=== PATIENT | male | born 2000 | race Caucasian/White ===

== ENCOUNTER 2019-01-22 21:49 | Emergency (ER) | payer MEDICAID, SELFPAY ==
[2019-01-22 21:50] VITALS: BP 159/93; PULSE 81; RESP 18; TEMP 36.8; O2SAT 100; BMI 40.2
--- NOTE | 2019-01-22 22:05 | EKG12_ITS ---
Test Reason : FALL Blood Pressure : / mmHG Vent. Rate : 075 BPM Atrial Rate : 075 BPM P-R Int : 118 ms QRS Dur : 110 ms QT Int : 370 ms P-R-T Axes : 007 -08 019 degrees QTc Int : 413 ms Normal sinus rhythm Normal ECG Confirmed by BHAVANA YANEZ, YASHIRA ([id number]), commissioning editor CASSANDRA WILKINSON ([id number]) on 01/24/2019 9:31:05 AM Referred By: DC Confirmed By:YASHIRA BATEMAN MD
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
--- NOTE | 2019-01-22 22:09 | ED.RN ---
NO OLD EKGS IN MUSE
[2019-01-22 22:25] LABS: Absolute Lymphocyte Count 3.18 X10^3/uL (0.83-4.51); Absolute Neutrophil Count 4.8 X10^3/uL (2.0-7.7); Basophil# 0.04 X10^3/uL; Basophil% 0.4 % (0-1); Eosinophil# 0.14 X10^3/uL; Eosinophils% 1.5 % (0-5); Hematocrit 43.6 % (40-54); Hemoglobin 14.2 g/dL (13.0-16.5); Lymphocyte # 3.18 X10^3/ul (4.0); Lymphocyte % 34.9 % (19-41); Mean Corp Hgb Conc 32.6 g/dL (32-36); Mean Corpuscular Hgb 27.6 pg (27.0-32.0); Mean Corpuscular Volume 84.8 fL (80-94); Mean Platelet Vol. 10.1 fl (6.2-12.0); Monocyte# 0.98 X10^3/uL; Monocyte% 10.7 % (0-10); NRBC Flagged by Analyzer 0 % (0-5); Neutrophil # 4.75 X10^3/uL (2.7-7.7); Neutrophil % 52.2 % (47-70); Platelet Count 254 K/mm3 (150-450); RBC Distribution Width CV 12.9 % (11.6-14.6); RBC Distribution Width SD 40.3 fl (35.1-43.9); Red Blood Count 5.14 M/mm3 (4.6-6.2); White Blood Count 9.1 K/mm3 (4.4-11.0)
[2019-01-22 22:45] LABS: Anion Gap 8 (5-15); BUN 17 mg/dL (7-18); BUN/Creat Ratio 21.6 RATIO (10-20); Calcium,Total 8.5 mg/dL (8.5-10.1); Chloride 108 mmol/L (98-107); Creatinine, Serum 0.79 mg/dL (0.70-1.30); EST Glomerular Filtration Rate 134 mL/min (>60); Est Glom Filt Rate - Afr Amer 162 mL/min (>60); Estimated Creatinine Clearance 145.51 ml/min; Glucose 92 mg/dL (74-106); Potassium 3.6 mmol/L (3.5-5.1); Sodium Level 141 mmol/L (136-145)
[2019-01-22 23:01] VITALS: BP 127/70; PULSE 76; RESP 15; O2SAT 98
[2019-01-22 23:09] VITALS: BP 121/58; PULSE 83; RESP 15; O2SAT 99
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
--- NOTE | 2019-01-22 23:19 | ED.DEP ---
ED Disposition - Plan for ED Patient: Instructions: FALL, Mechanical Referrals: Sarai Benedict [NON-STAFF] -
== END 2019-01-22 23:38 | disposition home or self-care (01) ==
PROVIDERS: Emergency Provider Emergency Medicine
DX: S06.0X1A Concussion with loss of consciousness of 30 minutes or less, initial encounter (principal); V18.4XXA Pedal cycle driver injured in noncollision transport accident in traffic accident, initial encounter; Y93.55 Activity, bike riding; Y92.9 Unspecified place or not applicable; Y99.9 Unspecified external cause status; R07.89 Other chest pain; R51 Headache; Z79.899 Other long term (current) drug therapy; Z87.891 Personal history of nicotine dependence
CPT/HCPCS: 70450; 71045; 80048; 84484; 85025; 93005; 99284; A4216

== ENCOUNTER 2019-11-21 16:32 | Emergency (ER) | payer MEDICAID, SELFPAY ==
[2019-11-21 16:33] VITALS: BP 138/79; PULSE 79; RESP 15; TEMP 37.1; O2SAT 98; BMI 41.2
--- NOTE | 2019-11-21 17:06 | ED.DEP ---
ED Disposition - Plan for ED Patient: Instructions: ED Otitis Externa Prescriptions: Ciprofloxacin HCl/Dexameth [Ciprodex Otic Suspension] 1 drop OTIC BID.TCU #1 bottle Referrals: Brandan Curiel MD [STAFF PHYSICIAN] -
--- NOTE | 2019-11-21 17:12 | ED.VISSUMM ---
- ER Visit Summary Date of Service: 11/21/19 Chief Complaint: Bilateral ear pain History of Present Illness: The patient is a 19 M presenting with bilateral ear pain. Patient states this started 2 weeks ago. He states he was initially on amoxicillin. This did not improve and was then given Augmentin. He was seen at urgent care 2 times. Today they told him he needs to come to the ED because he still feels bilateral ear pain. He denies fever. Denies rhinorrhea or sore throat. Denies cough. Denies other complaints. Physical Examination: Vitals are stable. Patient is afebrile. Alert no acute distress. HEENT exam pain with movement of tragus, no mastoid tenderness bilaterally. TM normal bilaterally. Neck is supple. No meningismus Lungs are clear and equal bilaterally. Heart is regular rate and rhythm. Abdomen is soft nontender nondistended. Extremities are unremarkable. Skin is warm and dry. Remainder of exam is unremarkable. Emergency Department Course and Treatment: Patient was given Cipro otic drops. Advised to follow-up with ENT. Advised return to ED for worsening complaints. Disposition: Discharge home Impression: Otitis externa This note was generated with [employer] dictation software. It may contain incorrect words, spelling, and punctuation that were not noted in review of the chart prior to signing ED Disposition - Plan for ED Patient: Instructions: ED Otitis Externa Prescriptions: Ciprofloxacin HCl/Dexameth [Ciprodex Otic Suspension] 1 drp OTIC (EAR) BID.TCU #1 bottle Prescription Printed Referrals: Brandan Curiel MD [STAFF PHYSICIAN] -
== END 2019-11-21 17:25 | disposition home or self-care (01) ==
LOC: ED 17:22
PROVIDERS: Emergency Provider Emergency Medicine
DX: H60.93 Unspecified otitis externa, bilateral (principal)
CPT/HCPCS: 99282

== ENCOUNTER 2021-04-12 13:36 | Emergency (ER) | payer MEDICAID, SELFPAY ==
[2021-04-12 13:37] VITALS: BP 159/92; PULSE 101; RESP 16; TEMP 36.4; O2SAT 98; BMI 38.4
--- NOTE | 2021-04-12 14:21 | ED.RN ---
PARENT IS REQUESTING TO TAKE THE PT HOME AND BRING HIM BACK IN THE EVENT HE STARTS ACTING FUNNY. PT IS RUNNING AROUND THE ROOM LAUGHING AND PLAYING. NO OBVIOUS DISTRESS IS NOTED.
--- NOTE | 2021-04-12 14:24 | EDS_ITS ---
HPI History of Present Illness Chief Complaint: Bite Informant: patient and family Narrative Narrative: 21-year-old male states that he took a toy away from the dog and the dog bit him. The vp global of the dog is with him. He believes that he got bit on the right side of his face and may have gone intraoral. Unknown [facility] Medical History ADHD Home Medications Atomoxetine Hcl [Strattera] 80 mg PO DAILY 02/22/13 [History Last Taken 02/22/13 0630] Cetirizine Hcl [Zyrtec] 10 mg PO DAILY #14 tablet 10/05/15 [Rx Last Taken Unknown] amoxicillin-pot clavulanate 875 mg PO Q12H #14 tablet 04/12/21 [Rx Last Taken Unknown] Allergy/AdvReac Type Severity Reaction Status Date / Time No Known Allergies Allergy Verified 04/12/21 13:37 Social History (Updated 04/12/21 @ 14:[address] Ervin Dominguez DO) Smoking Status: Never smoker substance use type: does not use ROS ROS ED Constitutional Constitutional ED: Denies chills, fever(s) or weight loss Eyes Eyes: Denies change in vision or diplopia ENT ENT ED: Denies ear pain, rhinorrhea or sore throat Cardiovascular Cardiovascular: Denies chest pain, orthopnea, palpitations or racing heartbeat Respiratory/Chest Respiratory/Chest: Denies cough, dyspnea or orthopnea Gastrointestinal Gastrointestinal: Denies abdominal pain, diarrhea, nausea or vomiting Genitourinary Genitourinary ED: Denies dysuria, hematuria or urinary frequency Musculoskeletal Musculoskeletal: Denies arthralgias or myalgias Integumentary Reports other Details: See HPI ; Denies abscess or rash Neurologic Neurologic: Denies headache(s) or weakness Psychiatric Psychiatric: Denies anxiety, depression, suicidal ideation or suicidal thoughts Endocrine Endocrinology: Denies polydipsia, polyphagia or polyuria Allergic/Immunologic Allergic/Immunologic ED: Denies mouth swelling, tongue swelling or urticaria EXAM Physical Exam Const Vital Signs: 04/12/21 13:37 Temperature 97.6 F L Temperature Source Temporal Pulse Rate 101 H Respiratory Rate 16 Blood Pressure 159/92 H Blood Pressure Mean 114 Pulse Ox 98 Oxygen Delivery Method Room Air Positive well nourished, well developed and obese General Appearance ED: well developed Nutritional Appearance: obese HEENT Reports normocephalic, head/scalp atraumatic, TM's clear and moist mucous membranes HEENT Narrative: There are multiple superficial abrasions to the right philtrum/maxillary face. Wound edges well approximated and they are not gaping. I see no extension to the intraoral area. trauma Tympanic Membrane ED: Yes TM's clear Eyes PERRL and EOMs intact bilaterally Neck no lymphadenopathy, supple and no JVD Resp normal respiratory effort and clear to auscultation bilaterally Cardio regular rate, regular rhythm and no murmurs GI normal to inspection, nondistended, normoactive bowel sounds and non-tender Palpation: soft Back/Spine no CVA tenderness and normal ROM Extremity normal to inspection General Extremety ED: Negative for edema General Extremity: Negative for edema Neuro oriented x3 and CN's II-XII intact bilaterally Sensorium / Orientation: alert Motor Exam: strength 5/5 throughout Psych mental status grossly normal Mood & Affect: Negative for depressed or tearful Skin no rashes or lesions noted and no wounds MDM MDM MDM Narrative Medical decision making narrative: Wound will be cleansed and dressed. Tetanus will be updated. To be started on Augmentin. Return if worsening or concerns Discharge Plan Triage Chief Complaint: Bite ED Provider: Ervin Dominguez Dx/Rx/DC Orders Clinical Impression: Dog bite of face Instructions: ED Dog Bite Prescriptions: New amoxicillin-pot clavulanate [amoxicillin-pot clavulanate] 875 MG tablet 875 mg PO Q12H Qty: 14 RF: 0 No Action Atomoxetine Hcl [Strattera] 80 MG capsule 80 mg PO DAILY RF: 0 Cetirizine Hcl [Zyrtec] 10 MG tablet 10 mg PO DAILY Qty: 14 RF: 0 Primary Care Provider: Care Physician,No Primary Referrals: Liban Franco MD [STAFF PHYSICIAN] - As Needed (for primary care) Care Physician,No Primary [Primary Care Provider] - Disposition Disposition: Home, Self Care
[2021-04-12] MEDS: Diphth,Pertuss(Acell),Tet Vac 0.5 ML Vial IM (14:47)
[2021-04-12] MEDS: Amox/Clavulanate 875 MG Tablet PO (14:48)
== END 2021-04-12 15:07 | disposition home or self-care (01) ==
PROVIDERS: Emergency Provider Emergency Medicine
DX: S00.87XA Other superficial bite of other part of head, initial encounter (principal); Z23 Encounter for immunization; W54.0XXA Bitten by dog, initial encounter; Y93.9 Activity, unspecified; Y92.9 Unspecified place or not applicable; Y99.9 Unspecified external cause status; F90.9 Attention-deficit hyperactivity disorder, unspecified type; E66.9 Obesity, unspecified; Z79.899 Other long term (current) drug therapy
CPT/HCPCS: 90471; 90715; 99283

== ENCOUNTER 2022-01-24 17:45 | Emergency (ER) | payer MEDICARE, MEDICAID, SELFPAY ==
[2022-01-24 17:47] VITALS: BP 153/98; PULSE 93; RESP 16; TEMP 36.8; O2SAT 97; BMI 46.7
[2022-01-24 18:31] LABS: Bacteria 0 SEEN /hpf (None Seen); Mucous, Urine 0 SEEN /hpf (<or=2+); Squamous Epithelial Cells - UA 0 SEEN /hpf (0-5)
[2022-01-24 18:40] LABS: Color, Urine Yellow (Yellow); Glucose, Dipstick Normal (Normal); Ketone-Dipstick Negative (Negative); Leukocyte Esterase-Dipstick 500 /ul (Negative); Nitrite-Dipstick Negative (Negative); Occult Blood-Urine 50 /ul (Negative); Protein-Dipstick 30 mg/dl (Negative); Urine Bilirubin Dipstick Negative (Negative); Urine Clarity Sl. Cloudy (Clear); Urine Urobilinogen Normal (Normal)
--- NOTE | 2022-01-24 19:02 | EDS_ITS ---
HPI History of Present Illness Chief Complaint: Complaint Informant: patient Pain Onset: Yesterday Narrative Narrative: Recurrent hematuria and dysuria yesterday. No abdominal or back pain. No fevers. No vomiting. Denies any anticoagulation medicines. States a year ago had blood in his urine saw his PCP was told to hydrate. Never got referred to. He states from then 2 weeks later had recurrent episode that went away yesterday first time it came back. Has not been sexually active for a year. He has no history of STD however would like it checked. Prior similar symptoms: Yes PFSH PFSH Medical History ADHD Home Medications Atomoxetine Hcl [Strattera] 80 mg PO DAILY 02/22/13 [History Last Taken 02/22/13 0630] Cetirizine Hcl [Zyrtec] 10 mg PO DAILY ##14 10/05/15 [Rx Last Taken Unknown] amoxicillin 875 mg-potassium clavulanate 125 mg tablet 875 mg PO Q12H #14 TABLETS 04/12/21 [Rx Last Taken Unknown] docusate sodium 100 mg capsule (DOK) 100 mg PO DAILY #14 caps 01/24/22 [Rx Last Taken Unknown] Allergy/AdvReac Type Severity Reaction Status Date / Time pollen extracts Allergy Other Verified 01/24/22 17:46 Social History Smoking Status: Never smoker substance use type: does not use ROS ROS ED Constitutional Constitutional ED: Denies chills, fever(s) or sweats Eyes Eyes: Denies change in vision ENT ENT ED: Denies dysphagia or sore throat Cardiovascular Cardiovascular: Denies chest pain, leg edema, palpitations or racing heartbeat Respiratory/Chest Respiratory/Chest: Denies cough, dyspnea or dyspnea on exertion Gastrointestinal Gastrointestinal: Denies abdominal pain, diarrhea, nausea or vomiting Genitourinary Genitourinary ED: Reports dysuria and hematuria; Denies urinary frequency Musculoskeletal Musculoskeletal: Denies back pain, extremity pain or neck pain Integumentary Denies rash or wounds Neurologic Neurologic: Denies headache(s), paresthesias or weakness EXAM Physical Exam Const Vital Signs: 01/24/22 17:47 Temperature 98.2 F Temperature Source Temporal Pulse Rate 93 Respiratory Rate 16 Blood Pressure 153/98 H Blood Pressure Mean 116 Pulse Ox 97 Oxygen Delivery Method Room Air Positive well nourished and well developed General Appearance ED: well developed and NAD HEENT Reports moist mucous membranes normocephalic and atraumatic Eyes PERRL, EOMs intact bilaterally and conjunctivae normal General Eye ED: Yes normal appearance of both eyes Neck no lymphadenopathy and supple General: Negative for tenderness Chest Wall Chest: Negative for tenderness Resp normal respiratory effort and normal air movement Effort and Inspection: symmetric chest movement; Negative for respiratory distress Cardio regular rate, regular rhythm and no murmurs Peripheral Pulses: pulses 2+ throughout GI normal to inspection, nondistended, normoactive bowel sounds and non-tender Palpation: Negative for guarding or rebound tenderness present Back/Spine no CVA tenderness and no thoracic nor lumbar tenderness Extremity normal to inspection General Extremety ED: Negative for edema or tenderness General Extremity: Negative for edema Neuro oriented x3 and no sensory deficits noted Sensorium / Orientation: awake and alert Skin no rashes or lesions noted and no wounds MDM MDM Lab Data Labs: Laboratory Results - last 24 hr 01/24/22 01/24/22 18:20 18:20 Urine Color Yellow Urine Clarity Sl. Cloudy Urine pH 6.0 Ur Specific [place] 1.020 Urine Protein 30 H Urine Glucose (UA) Normal Urine Ketones Negative Urine Occult Blood 50 H Urine Nitrite Negative Urine Bilirubin Negative Urine Urobilinogen Normal Ur Leukocyte Esterase 500 H Urine RBC 5-10 SEEN Urine WBC 25-50 SEEN Ur Squamous Epith Cells 0 SEEN Urine Bacteria 0 SEEN Urine Mucus 0 SEEN Chlam trachomat DNA PCR POSITIVE H N.gonorrhoeae DNA (PCR) Negative Discharge Plan Triage Chief Complaint: Complaint ED Provider: Eric Salmon Dx/Rx/DC Orders Clinical Impression: Acute UTI, Hematuria, Urethritis Instructions: ED Hematuria, ED Urinary Tract Infections in Men Prescriptions: New docusate sodium [DOK] 100 mg capsule 100 mg PO DAILY Qty: 14 0RF No Action Atomoxetine Hcl [Strattera] 80 MG capsule 80 mg PO DAILY Cetirizine Hcl [Zyrtec] 10 MG tablet 10 mg PO DAILY Qty: 14 0RF amoxicillin-pot clavulanate [amoxicillin-pot clavulanate] 875 MG tablet 875 mg PO Q12H Qty: 14 0RF Primary Care Provider: Kerwin Zuluaga Referrals: Kerwin Zuluaga MD [Primary Care Provider] - Ajit Mo MD [Med Staff - Active Staff] - 1 Week Disposition Disposition: Home, Self Care Discharge Date/Time: 01/24/22 19:39
[2022-01-24 19:21] LABS: Red Blood Cells-Urine 5-10 SEEN /hpf (0-5); White Blood Cells 25-50 SEEN /hpf (0-5)
[2022-01-24] MEDS: Cephalexin 250 MG Capsule 500 MG PO (19:38)
[2022-01-24 20:21] LABS: Neisserai gonorrhoeae by PCR Negative (Negative); Probe Check PASS
[2022-01-24 20:24] LABS: Chlamydia Trachomatis by PCR POSITIVE (Negative)
--- NOTE | 2022-01-24 20:30 | ED.RN ---
SPOKE WITH PATIENT AND MADE AWARE OF TEST RESULTS. PATIENT TO HAVE MEDICATION CALLED IN TO [facility]. PATIENT AWARE TO PAINT DIPPER MEDICATION
== END 2022-01-24 19:39 | disposition home or self-care (01) ==
PROVIDERS: Emergency Provider Emergency Medicine; PCP Family Medicine; Visit Provider Emergency Medicine
DX: A74.9 Chlamydial infection, unspecified (principal); R31.9 Hematuria, unspecified; N34.2 Other urethritis
CPT/HCPCS: 81001; 87086; 87491; 87591; 99283

== ENCOUNTER 2022-02-08 10:02 | Emergency (ER) | payer MEDICARE, MEDICAID, SELFPAY ==
[2022-02-08 10:03] VITALS: BP 163/100; PULSE 83; RESP 18; TEMP 36.8; O2SAT 100; BMI 50.9
[2022-02-08 10:05] VITALS: BP 163/100; PULSE 83; RESP 18; TEMP 36.8; O2SAT 100
--- NOTE | 2022-02-08 10:14 | EX.ED.GUMALE ---
HPI History of Present Illness Chief Complaint: Complaint Detail of Chief Complaint: Dysuria Informant: patient Narrative Narrative: Patient presents the emergency department complaint of dysuria. Patient states that he was seen for same about a week ago and diagnosed with a urinary tract infection and treated with antibiotics. Patient also was tested for gonorrhea and chlamydia and he thought they were negative. Patient has not been sexually active for a year. He denies any abnormal discharge from his penis. He denies fevers. Denies abdominal pain. Denies back pain. Prior similar symptoms: Yes PFSH PFSH Medical History ADHD Home Medications Atomoxetine Hcl [Strattera] 80 mg PO DAILY 02/22/13 [History Last Taken 02/22/13 0630] Cetirizine Hcl [Zyrtec] 10 mg PO DAILY ##14 10/05/15 [Rx Last Taken Unknown] amoxicillin 875 mg-potassium clavulanate 125 mg tablet 875 mg PO Q12H #14 TABLETS 04/12/21 [Rx Last Taken Unknown] docusate sodium 100 mg capsule (DOK) 100 mg PO DAILY #14 caps 01/24/22 [Rx Last Taken Unknown] doxycycline monohydrate 100 mg capsule 100 mg PO BID #14 CAPSULES 02/08/22 [Rx Last Taken Unknown] sulfamethoxazole 800 mg-trimethoprim 160 mg tablet 1 tab PO BID #6 TABLETS 02/08/22 [Rx Last Taken Unknown] Allergy/AdvReac Type Severity Reaction Status Date / Time pollen extracts Allergy Other Verified 02/08/22 10:05 Social History Smoking Status: Never smoker substance use type: does not use ROS ROS ED Review of Systems ROS Unobtainable: other Constitutional Constitutional ED: Reports lethargy; Denies chills, fever(s), sweats or weight loss Eyes Eyes: Denies blurry vision, change in vision or diplopia ENT ENT ED: Denies rhinorrhea or sore throat Cardiovascular Cardiovascular: Denies chest pain, orthopnea or racing heartbeat Respiratory/Chest Respiratory/Chest: Reports dyspnea on exertion; Denies dyspnea, orthopnea or sputum Gastrointestinal Gastrointestinal: Denies abdominal pain, diarrhea, nausea or vomiting Genitourinary Genitourinary ED: Reports dysuria and urinary frequency; Denies hematuria Musculoskeletal Musculoskeletal: Denies arthralgias, back pain, myalgias or neck pain Integumentary Denies abscess, Abrasions or rash Neurologic Neurologic: Denies headache(s) or weakness Psychiatric Psychiatric: Denies anxiety, depression or suicidal thoughts Endocrine Endocrinology: Denies polydipsia, polyphagia or polyuria Hematologic/Lymphatic Hematologic/Lymphatic: Denies easy bleeding, easy bruising or lymphadenopathy Allergic/Immunologic Allergic/Immunologic ED: Denies mouth swelling, tongue swelling or urticaria EXAM Physical Exam Const Vital Signs: 02/08/22 10:03 02/08/22 10:05 Temperature 98.2 F 98.2 F Temperature Source Temporal Temporal Pulse Rate 83 83 Respiratory Rate 18 18 Blood Pressure 163/100 H 163/100 H Blood Pressure Mean 121 121 Pulse Ox 100 100 Oxygen Delivery Method Room Air Room Air Positive well nourished and well developed General Appearance ED: well developed and NAD HEENT Reports TM's clear and moist mucous membranes normocephalic and atraumatic; Negative for trauma or tenderness Tympanic Membrane ED: Yes TM's clear Eyes PERRL and EOMs intact bilaterally General Eye ED: Negative for pale conjunctiva or scleral icterus Neck no lymphadenopathy, supple and no JVD General: Negative for tenderness Chest Wall inspection of chest normal and palpation of chest normal Chest: Negative for tenderness Resp normal respiratory effort and clear to auscultation bilaterally Effort and Inspection: Negative for respiratory distress or pain with movement Auscultation: Negative for rhonchi, wheezes or diminished lung sounds Cardio regular rate, regular rhythm, S1 normal heart sound, S2 normal heart sound and no murmurs Peripheral Pulses: pulses 2+ throughout GI normal to inspection, nondistended, normoactive bowel sounds, soft to palpation, non-tender, non-distended and no masses Back/Spine no CVA tenderness and no thoracic nor lumbar tenderness Extremity normal to inspection General Extremety ED: Negative for edema General Extremity: Negative for edema Neuro oriented x3, CN's II-XII intact bilaterally, no sensory deficits noted and gait normal Sensorium / Orientation: awake, alert, oriented to person, oriented to place and oriented to time Motor Exam: strength 5/5 throughout and strength abnormal Psych mental status grossly normal Skin no rashes or lesions noted and no wounds MDM MDM MDM Narrative Medical decision making narrative: Urinalysis obtained was positive for 500 leukocyte Estrace and 50-100 WBCs as well as +1 bacteria. Patient had a urine culture ordered. Last urine culture from January 24 did not have any growth. Patient was positive for chlamydia but I only see that he had treatment with Keflex. At this point I will start him on doxycycline for 7 days as well as Bactrim for 3 days. Patient advised to follow-up with primary care physician in 3 to 5 days. Lab Data Labs: Laboratory Results - last 24 hr 02/08/22 10:25 Urine Color Yellow Urine Clarity Cloudy Urine pH 7.0 Ur Specific [place] 1.015 Urine Protein 15 H Urine Glucose (UA) Normal Urine Ketones Negative Urine Occult Blood 10 H Urine Nitrite Negative Urine Bilirubin Negative Urine Urobilinogen Normal Ur Leukocyte Esterase 500 H Urine RBC 0-5 SEEN Urine WBC 50-100 SEEN Ur Squamous Epith Cells 0-5 SEEN Urine Bacteria 1+ Urine Mucus RARE Discharge Plan Triage Chief Complaint: Complaint ED Provider: Brendan Bruce Dx/Rx/DC Orders Clinical Impression: Chlamydial urethritis, Acute UTI Instructions: Chlamydia, ED Urinary Tract Infections in Men Prescriptions: New sulfamethoxazole-trimethoprim [sulfamethoxazole-trimethoprim] 1 TABLET tablet 1 tab PO BID Qty: 6 0RF doxycycline monohydrate 100 MG capsule 100 mg PO BID Qty: 14 0RF No Action Atomoxetine Hcl [Strattera] 80 MG capsule 80 mg PO DAILY Cetirizine Hcl [Zyrtec] 10 MG tablet 10 mg PO DAILY Qty: 14 0RF amoxicillin-pot clavulanate [amoxicillin-pot clavulanate] 875 MG tablet 875 mg PO Q12H Qty: 14 0RF docusate sodium [DOK] 100 mg capsule 100 mg PO DAILY Qty: 14 0RF Primary Care Provider: Kerwin Zuluaga Referrals: Kerwin Zuluaga MD [Primary Care Provider] - 3-5 Days Disposition Disposition: Home, Self Care
[2022-02-08 10:46] LABS: Color, Urine Yellow (Yellow); Glucose, Dipstick Normal (Normal); Ketone-Dipstick Negative (Negative); Leukocyte Esterase-Dipstick 500 /ul (Negative); Nitrite-Dipstick Negative (Negative); Occult Blood-Urine 10 /ul (Negative); Protein-Dipstick 15 mg/dl (Negative); Specific Gravity, Urine 1.015 (1.002-1.030); Urine Bilirubin Dipstick Negative (Negative); Urine Clarity Cloudy (Clear); Urine Urobilinogen Normal (Normal)
[2022-02-08 10:52] LABS: Bacteria 1+ /hpf (None Seen); Mucous, Urine RARE /hpf (<or=2+); Red Blood Cells-Urine 0-5 SEEN /hpf (0-5); Squamous Epithelial Cells - UA 0-5 SEEN /hpf (0-5); White Blood Cells 50-100 SEEN /hpf (0-5)
[2022-02-08] MEDS: Doxycycline 100 MG CAPSULE PO (11:10)
[2022-02-08] MEDS: Smz/Tmp Ds Tablet 1 TABLET PO (11:10)
== END 2022-02-08 11:12 | disposition home or self-care (01) ==
PROVIDERS: Emergency Provider Emergency Medicine; PCP Family Medicine; Visit Provider Emergency Medicine
DX: A56.01 Chlamydial cystitis and urethritis (principal); N39.0 Urinary tract infection, site not specified; F90.9 Attention-deficit hyperactivity disorder, unspecified type; R06.09 Other forms of dyspnea; Z79.899 Other long term (current) drug therapy
CPT/HCPCS: 81001; 87086; 99282

== ENCOUNTER 2022-05-05 08:17 | Emergency (ER) | payer MEDICARE, MEDICAID, SELFPAY ==
[2022-05-05 08:18] VITALS: BP 152/88; PULSE 90; RESP 18; TEMP 36.6; O2SAT 98; BMI 47.9
[2022-05-05 08:23] VITALS: BP 152/88; PULSE 90; RESP 18; TEMP 36.6; O2SAT 98
--- NOTE | 2022-05-05 08:30 | EKG12_ITS ---
Test Reason : CP WITH DEEP BREATH Blood Pressure : / mmHG Vent. Rate : 083 BPM Atrial Rate : 083 BPM P-R Int : 128 ms QRS Dur : 106 ms QT Int : 352 ms P-R-T Axes : 027 -12 010 degrees QTc Int : 413 ms Normal sinus rhythm Poor R wave progression Confirmed by LON YANEZ, VIDAL ([id number]), continuity editor CASSANDRA WILKINSON ([id number]) on 05/06/2022 10:47:48 AM Referred By: EDWARD Confirmed By:VIDAL FORREST MD
--- NOTE | 2022-05-05 08:57 | ED.VIS.CHEST ---
HPI History of Present Illness Chief Complaint: Chest Pain Narrative Narrative: Patient is presenting with 4-day history of chest pain it is left parasternal. No known trauma. There is no pleuritic component. There is no back pain or tearing sensation. No lower extremity edema or calf pain. No DVT or PE risk factors. [facility] Medical History ADHD Home Medications Atomoxetine Hcl [Strattera] 80 mg PO DAILY 02/22/13 [History Last Taken 02/22/13 0630] Cetirizine Hcl [Zyrtec] 10 mg PO DAILY ##14 10/05/15 [Rx Last Taken Unknown] amoxicillin 875 mg-potassium clavulanate 125 mg tablet 875 mg PO Q12H #14 TABLETS 04/12/21 [Rx Last Taken Unknown] docusate sodium 100 mg capsule (DOK) 100 mg PO DAILY #14 caps 01/24/22 [Rx Last Taken Unknown] doxycycline monohydrate 100 mg capsule 100 mg PO BID #14 CAPSULES 02/08/22 [Rx Last Taken Unknown] sulfamethoxazole 800 mg-trimethoprim 160 mg tablet 1 tab PO BID #6 TABLETS 02/08/22 [Rx Last Taken Unknown] doxycycline hyclate 100 mg capsule 100 mg PO BID #20 caps 05/05/22 [Rx Last Taken Unknown] Allergy/AdvReac Type Severity Reaction Status Date / Time pollen extracts Allergy Other Verified 05/05/22 08:21 Social History Smoking Status: Never smoker substance use type: does not use ROS ROS ED ROS Narrative Past medical history: Reviewed Medications: Reviewed Social history: Noncontributory Review of systems: All systems negative except as indicated General: No fever Eyes: No visual changes ENT: No upper airway congestion, normal voice Neck: No neck pain Cardiovascular: No palpitations, no syncope. Chest pain as in HPI Respiratory: No shortness of breath or cough Gastrointestinal: No abdominal pain, nausea vomiting or diarrhea Genitourinary: No dysuria Musculoskeletal: Denies myalgias no difficulty with ambulation Skin: No rash Neurological: No memory loss, confusion or any focal weakness Psych: No recent behavioral changes Hematologic: No easy bleeding or easy bruising EXAM Physical Exam Narrative Exam Narrative: Physical exam General: Well nourished, Well developed, No Acute Distress Head: Normocephalic, Atraumatic Eyes: Conjunctiva not pale ENT: Moist mucous membranes Neck: Supple, Nontender, No lymphadenopathy Cardiovascular: Regular rate, Regular rhythm Chest wall: Reproducible left parasternal chest wall pain in the upper rib region. Respiratory: No distress, CTA bilaterally Abdomen: Soft, Nontender, Nondistended Back: Nontender, Normal Inspection. Negative for: CVA tenderness Extremities: Nontender, No edema, no calf pain. Skin: Normal color, No rash Neurological: Alert, Normal Strength, Normal Sensation Psychological: Normal affect Const Vital Signs: 05/05/22 08:18 05/05/22 08:23 Temperature 97.9 F 97.9 F Temperature Source Temporal Temporal Pulse Rate 90 90 Respiratory Rate 18 18 Blood Pressure 152/88 H 152/88 H Blood Pressure Mean 109 109 Pulse Ox 98 98 Oxygen Delivery Method Room Air Room Air MDM MDM Radiography Diagnostic Testing: Clinical Impression(s) from Imaging Studies Chest X-Ray 05/05/22 09:18 IMPRESSION: Mild increased markings in the lingular segment of the left upper lobe. Early infiltrate should be ruled out. Electronically Signed: Nando Tijerina MD at 10:00 EST , Chest x-ray interpreted by me is normal. EKG Initial EKG: Comments: Sinus rhythm with a rate of 83. Normal VT and QTc intervals. No ischemic changes. No heart strain pattern. Interpreted by emergency Dr. Treatment and Re-Evaluation Narrative: Patient has a normal work-up. He appears well, he has reproducible chest wall pain with an unremarkable x-ray although the. Radiologist thinks the patient has some increased markings in the left upper lobe, this would correspond to his pain therefore I will be cautious to him and placed him on antibiotics. If anything changes the patient is to return. He is saturating well he appears well and does not have any risk factors of thromboembolic disease. Discharge Plan Triage Chief Complaint: Chest Pain ED Provider: Justino Brooks Dx/Rx/DC Orders Clinical Impression: Acute chest wall pain, Pneumonia Instructions: ED Chest Wall Pain, Costochondritis, ED Pneumonia (Adult) Prescriptions: New doxycycline hyclate 100 mg capsule 100 mg PO BID Qty: 20 0RF No Action Atomoxetine Hcl [Strattera] 80 MG capsule 80 mg PO DAILY Cetirizine Hcl [Zyrtec] 10 MG tablet 10 mg PO DAILY Qty: 14 0RF amoxicillin-pot clavulanate [amoxicillin-pot clavulanate] 875 MG tablet 875 mg PO Q12H Qty: 14 0RF docusate sodium [DOK] 100 mg capsule 100 mg PO DAILY Qty: 14 0RF sulfamethoxazole-trimethoprim [sulfamethoxazole-trimethoprim] 1 TABLET tablet 1 tab PO BID Qty: 6 0RF doxycycline monohydrate 100 MG capsule 100 mg PO BID Qty: 14 0RF Primary Care Provider: Dinh De La Torre Referrals: Kerwin Zuluaga MD [Non-Staff] - 3-5 Days Disposition Disposition: Home, Self Care
--- NOTE | 2022-05-05 09:18 | RAD_ITS ---
STUDY: X-RAY CHEST REASON FOR EXAM: Male, 22 years old. Trauma TECHNIQUE: PA and lateral views of the chest. COMPARISON: Comparison is made with prior study dated 01/22/2019. FINDINGS: EKG electrodes are seen. Mild increased markings in the lingular segment of the left upper lobe. Early infiltrate should be ruled out. There is no demonstrated pleural abnormality. Normal size heart. Normal mediastinum and missy. Normal visualized pulmonary arteries. Normal visualized aortic arch and descending thoracic aorta. Normal visualized thoracic spine. Normal visualized ribs, clavicles, and shoulders. There is no demonstrated abnormality of the visualized soft tissue structures of the upper abdomen. RAD/Chest PA and Lateral IMPRESSION: Mild increased markings in the lingular segment of the left upper lobe. Early infiltrate should be ruled out. Electronically Signed: Nando Tijerina MD at 10:00 EST ,
[2022-05-05 10:16] VITALS: BP 140/96; PULSE 85; RESP 20; O2SAT 99
== END 2022-05-05 10:16 | disposition home or self-care (01) ==
PROVIDERS: Emergency Provider Emergency Medicine; PCP Physician Assistant; Visit Provider Emergency Medicine
DX: J18.9 Pneumonia, unspecified organism (principal); R07.89 Other chest pain
CPT/HCPCS: 71046; 93005; 99283

== ENCOUNTER 2022-05-07 21:54 | Emergency (ER) | payer MEDICARE, MEDICAID, SELFPAY ==
[2022-05-07 21:54] VITALS: BP 160/104; PULSE 94; RESP 16; TEMP 36.1; O2SAT 100; BMI 44.6
--- NOTE | 2022-05-07 22:08 | CT_ITS ---
EXAM: CT ABDOMEN AND PELVIS WITHOUT INTRAVENOUS CONTRAST CLINICAL INDICATION: Left lower abdominal pain for 2 days. Recent pneumonia. TECHNIQUE: Helically acquired images were obtained of the abdomen and pelvis without intravenous contrast. This CT exam was performed using one or more of the following dose reduction techniques: automated exposure control, adjustment of the mA and/or kV according to patient size, and/or use of iterative reconstruction technique. This report was created using [employer] report generation technology. RADIATION DOSE: CTDIvol = 24.15 mGy, DLP = 1327.19 mGy-cm. COMPARISON: None. FINDINGS: LOWER THORAX: Unremarkable. Lung bases are clear. No cardiomegaly. No significant pericardial effusion. ABDOMEN: LIVER: Unremarkable. Homogeneous. GALLBLADDER AND BILE DUCTS: Unremarkable. No calcified gallstones. No gallbladder distention or wall edema. No intra- or extrahepatic biliary ductal dilation. PANCREAS: Unremarkable. No focal cystic mass. SPLEEN: Unremarkable. Normal size without focal cystic or solid mass. ADRENALS: Unremarkable. No nodules. KIDNEYS AND URETERS: Unremarkable. Normal renal size and position. No hydronephrosis. STOMACH AND BOWEL: Unremarkable. No stomach or bowel distention. No focal inflammatory change. PELVIS: APPENDIX: Normal appendix. BLADDER: Unremarkable. REPRODUCTIVE: Unremarkable as visualized. No mass. ABDOMEN and PELVIS: INTRAPERITONEAL SPACE: Unremarkable. No ascites or other fluid collection. No free air. BONES/JOINTS: Unremarkable. No suspicious lytic or blastic abnormality. SOFT TISSUES: Small fat-containing periumbilical hernia. VASCULATURE: Unremarkable. Abdominal aorta is non-dilated. LYMPH NODES: Unremarkable. No enlarged lymph nodes. CT/Abdomen/Pelvis without Cont IMPRESSION: 1. Small fat-containing periumbilical hernia. 2. No acute abdominal pelvic abnormality. Electronically Signed: Rios Lopez MD at 22:48 EST ,
--- NOTE | 2022-05-07 22:11 | EX.ED.DYSGE1 ---
HPI History of Present Illness Chief Complaint: Abd Pain Narrative Narrative: Patient presents with periumbilical and epigastric pain for the past 2 days. He is on doxycycline for possible pneumonia, he was placed on doxycycline by me, his pain started after that. He has no back pain or tearing sensation he has no lower abdominal pain. He has no diarrhea or constipation, his pain is worse when he moves bends or twists. He has no nausea or vomiting. PFSH PFSH Medical History ADHD Non-smoker Home Medications Atomoxetine Hcl [Strattera] 80 mg PO DAILY 02/22/13 [History Last Taken 02/22/13 0630] Cetirizine Hcl [Zyrtec] 10 mg PO DAILY ##14 10/05/15 [Rx Last Taken Unknown] amoxicillin 875 mg-potassium clavulanate 125 mg tablet 875 mg PO Q12H #14 TABLETS 04/12/21 [Rx Last Taken Unknown] docusate sodium 100 mg capsule (DOK) 100 mg PO DAILY #14 caps 01/24/22 [Rx Last Taken Unknown] doxycycline monohydrate 100 mg capsule 100 mg PO BID #14 CAPSULES 02/08/22 [Rx Last Taken Unknown] sulfamethoxazole 800 mg-trimethoprim 160 mg tablet 1 tab PO BID #6 TABLETS 02/08/22 [Rx Last Taken Unknown] doxycycline hyclate 100 mg capsule 100 mg PO BID #20 caps 05/05/22 [Rx Last Taken Unknown] Allergy/AdvReac Type Severity Reaction Status Date / Time pollen extracts Allergy Other Verified 05/07/22 21:56 Social History Smoking Status: Never smoker substance use type: does not use ROS ROS ED ROS Narrative Past medical history: Reviewed Medications: Reviewed Social history: Noncontributory Review of systems: All systems negative except as indicated General: No fever Eyes: No visual changes ENT: No upper airway congestion, normal voice Neck: No neck pain Cardiovascular: No chest pain. Chest wall pain is now mostly gone Respiratory: No shortness of breath or cough Gastrointestinal: Abdominal pain as in HPI Genitourinary: No dysuria Musculoskeletal: Denies myalgias no difficulty with ambulation Skin: No rash Neurological: No memory loss, confusion or any focal weakness Psych: No recent behavioral changes Hematologic: No easy bleeding or easy bruising EXAM Physical Exam Narrative Exam Narrative: Physical exam General: Well nourished, Well developed, No Acute Distress Head: Normocephalic, Atraumatic Eyes: Conjunctiva not pale ENT: Moist mucous membranes Neck: Supple, Nontender, No lymphadenopathy Cardiovascular: Regular rate, Regular rhythm Respiratory: No distress, CTA bilaterally Abdomen: Soft, there is epigastric and periumbilical pain without any guarding or rebound. No specific pain in McBurney's. No specific pain in the right upper quadrant. Walls's is negative. Back: Nontender, Normal Inspection. Negative for: CVA tenderness Extremities: Nontender, No edema Skin: Normal color, No rash Neurological: Alert, Normal Strength, Normal Sensation Psychological: Normal affect Const Vital Signs: 05/07/22 21:54 Temperature 96.9 F L Temperature Source Temporal Pulse Rate 94 Respiratory Rate 16 Blood Pressure 160/104 H Blood Pressure Mean 122 Pulse Ox 100 Oxygen Delivery Method Room Air [facility] Lab Data Labs: Laboratory Results - last 24 hr 05/07/22 05/07/22 22:16 22:16 WBC 11.2 H RBC 5.18 Hgb 13.9 Hct 43.6 MCV 84.2 MCH 26.8 L MCHC 31.9 L RDW Std Deviation 39.6 RDW Coeff of Yovani 12.9 Plt Count 322 MPV 9.7 Immature Gran % (Auto) 0.600 Neut % (Auto) 60.0 Lymph % (Auto) 28.8 [place] % (Auto) 9.0 Eos % (Auto) 1.2 Baso % (Auto) 0.4 Absolute Neuts (auto) 6.7 Absolute Lymphs (auto) 3.23 Nucleated RBC % 0 Sodium 139 Potassium 3.8 Chloride 108 H Carbon Dioxide 26.0 Anion Gap 5 BUN 12 Creatinine 0.70 Estim Creat Clear Calc 164.13 Est GFR (MDRD) Af Amer 181 Est GFR (MDRD) Non-Af 149 BUN/Creatinine Ratio 17.2 Glucose 91 Calcium 8.6 Total Bilirubin 0.40 AST 14 L ALT 29 Alkaline Phosphatase 111 Total Protein 6.8 Albumin 3.4 Globulin 3.4 Albumin/Globulin Ratio 1.0 Lipase 83 Radiography Diagnostic Testing: Clinical Impression(s) from Imaging Studies Abdomen/Pelvis CT 05/07/22 22:08 IMPRESSION: 1. Small fat-containing periumbilical hernia. 2. No acute abdominal pelvic abnormality. Electronically Signed: Rios Lopez MD at 22:48 EST , Treatment and Re-Evaluation Narrative: Patient's work-up is consistent with an abdominal wall hernia it only contains fat. Patient appears well he does not have any blood work abnormalities. I will follow him up with surgery I will give him abdominal wall binder, I told him about losing weight as well as not lifting anything more than about 10 pounds. He understands all this. Discharge Plan Triage Chief Complaint: Abd Pain ED Provider: Justino Brooks Dx/Rx/DC Orders Clinical Impression: Abdominal wall hernia, Abdominal pain Instructions: What Is a Hernia?, ED Hernia (Adult) Prescriptions: No Action Atomoxetine Hcl [Strattera] 80 MG capsule 80 mg PO DAILY Cetirizine Hcl [Zyrtec] 10 MG tablet 10 mg PO DAILY Qty: 14 0RF amoxicillin-pot clavulanate [amoxicillin-pot clavulanate] 875 MG tablet 875 mg PO Q12H Qty: 14 0RF docusate sodium [DOK] 100 mg capsule 100 mg PO DAILY Qty: 14 0RF sulfamethoxazole-trimethoprim [sulfamethoxazole-trimethoprim] 1 TABLET tablet 1 tab PO BID Qty: 6 0RF doxycycline monohydrate 100 MG capsule 100 mg PO BID Qty: 14 0RF doxycycline hyclate 100 mg capsule 100 mg PO BID Qty: 20 0RF Primary Care Provider: Dinh De La Torre Referrals: Rios Fitch MD [Med Staff - Active Staff] - 3-5 Days Dinh De La Torre PA [Primary Care Provider] - Disposition Disposition: Home, Self Care
[2022-05-07 22:28] LABS: Absolute Lymphocyte Count 3.23 X10^3/uL (0.83-4.51); Absolute Neutrophil Count 6.7 X10^3/uL (2.0-7.7); Basophil# 0.04 X10^3/uL; Basophil% 0.4 % (0-1); Eosinophil# 0.14 X10^3/uL; Eosinophils% 1.2 % (0-5); Hematocrit 43.6 % (40-54); Hemoglobin 13.9 g/dL (13.0-16.5); Lymphocyte # 3.23 X10^3/ul (0.83-4.51); Lymphocyte % 28.8 % (19-41); Mean Corp Hgb Conc 31.9 g/dL (32-36); Mean Corpuscular Hgb 26.8 pg (27.0-32.0); Mean Corpuscular Volume 84.2 fL (80-94); Mean Platelet Vol. 9.7 fl (6.2-12.0); Monocyte# 1.01 X10^3/uL; NRBC Flagged by Analyzer 0 % (0-5); Neutrophil # 6.72 X10^3/uL (2.7-7.7); Platelet Count 322 K/mm3 (150-450); RBC Distribution Width CV 12.9 % (11.6-14.6); RBC Distribution Width SD 39.6 fl (35.1-43.9); Red Blood Count 5.18 M/mm3 (4.6-6.2); White Blood Count 11.2 K/mm3 (4.4-11.0)
[2022-05-07] MEDS: oxyCODONE 5 MG Tablet PO (22:29)
[2022-05-07 22:47] LABS: AST(SGOT) 14 U/L (15-37); Alanine Aminotransfer ALT/SGPT 29 U/L (16-61); Albumin, Serum 3.4 g/dL (3.2-5.0); Alkaline Phosphatase 111 U/L (45-117); Anion Gap 5 (5-15); BUN 12 mg/dL (7-18); BUN/Creat Ratio 17.2 RATIO (10-20); Calcium,Total 8.6 mg/dL (8.5-10.1); Chloride 108 mmol/L (98-107); EST Glomerular Filtration Rate 149 mL/min (>60); Est Glom Filt Rate - Afr Amer 181 mL/min (>60); Estimated Creatinine Clearance 164.13 ml/min; Globulin 3.4 g/dL (2.2-4.2); Glucose 91 mg/dL (74-106); Lipase 83 U/L (73-393); Potassium 3.8 mmol/L (3.5-5.1); Protein, Total 6.8 g/dL (6.4-8.2); Sodium Level 139 mmol/L (136-145)
== END 2022-05-07 23:11 | disposition home or self-care (01) ==
PROVIDERS: Emergency Provider Emergency Medicine; PCP Physician Assistant; Visit Provider Emergency Medicine
DX: K43.9 Ventral hernia without obstruction or gangrene (principal); R10.9 Unspecified abdominal pain; Z79.899 Other long term (current) drug therapy
CPT/HCPCS: 74176; 80053; 83690; 85025; 99284; A4216

== ENCOUNTER 2022-05-09 03:02 | Emergency (ER) | payer MEDICARE, MEDICAID, SELFPAY ==
[2022-05-09 03:03] VITALS: BP 140/95; PULSE 93; RESP 16; TEMP 37.1; O2SAT 100; BMI 46.3
--- NOTE | 2022-05-09 03:26 | EX.ED.DYSGE1 ---
HPI History of Present Illness Chief Complaint: Abd Pain Narrative Narrative: Patient is a 22-year-old male with past medical history of pneumonia as well as a recently diagnosed umbilical hernia. He states for approximately past 24 hours he has had pain right around the bellybutton. He states that sharp in nature and is making him feel nauseous without vomiting. He states has been trying [id number] medication with no symptom improvement. He states that as the pain has been persistent and not resolving he is concerned that there is a problem with his recently diagnosed hernia and therefore returns for repeat evaluation [facility] Medical History ADHD Non-smoker Home Medications Strattera 05/09/22 [History Last Taken Unknown] oxycodone-acetaminophen 5 mg-325 mg tablet (Percocet) 1 tab PO Q6H PRN pain 3 days #12 tabs 05/09/22 [Rx Last Taken Unknown] Allergy/AdvReac Type Severity Reaction Status Date / Time pollen extracts Allergy Other Verified 05/09/22 03:03 Surgical History (Updated 05/09/22 @ 03:22 by Noa Lopez) History of tonsillectomy and adenoidectomy Social History Smoking Status: Never smoker substance use type: does not use ROS ROS ED Constitutional Constitutional ED: Denies chills or fever(s) ENT ENT ED: Denies sore throat Cardiovascular Cardiovascular: Denies chest pain Respiratory/Chest Respiratory/Chest: Denies cough or dyspnea Gastrointestinal Gastrointestinal: Reports abdominal pain and nausea; Denies diarrhea or vomiting Genitourinary Genitourinary ED: Denies dysuria Musculoskeletal Musculoskeletal: Denies myalgias Integumentary Denies rash Neurologic Neurologic: Denies headache(s) Hematologic/Lymphatic Hematologic/Lymphatic: Denies easy bleeding or easy bruising EXAM Physical Exam Const Vital Signs: 05/09/22 03:03 Temperature 98.7 F Temperature Source Oral Pulse Rate 93 Respiratory Rate 16 Blood Pressure 140/95 H Blood Pressure Mean 110 Pulse Ox 100 Oxygen Delivery Method Room Air Positive well nourished, well developed and obese General Appearance ED: well developed Nutritional Appearance: obese Eyes PERRL and EOMs intact bilaterally General Eye ED: Negative for scleral icterus Neck supple Resp normal respiratory effort and clear to auscultation bilaterally Cardio regular rate and regular rhythm Rate: other Other Details: Radial pulses are +2-4 bilaterally are equal and symmetric GI non-distended GI Narrative: Abdomen is soft and nondistended with normoactive bowel sounds. There is an umbilical hernia palpated that feels incarcerated in nature. There is pain on palpation at the site. No voluntary guarding or rigidity. No pulsatile mass or fluid wave noted Auscultation: normoactive bowel sounds Palpation: soft Extremity normal to inspection Neuro oriented x3 and CN's II-XII intact bilaterally Sensorium / Orientation: alert Psych mental status grossly normal Skin no rashes or lesions noted and skin turgor normal General Skin Exam: Negative for jaundice MDM MDM MDM Narrative Medical decision making narrative: Patient presented to the ER with report of recently diagnosed hernia. On exam he does feel to be a hernia present around the umbilicus consistent with his history. He does feel incarcerated on exam. Manual pressure was applied and there was spontaneous reduction of the hernia and patient's pain improved. As reported he had persistent pain for 24 to 36 hours I elected to perform basic laboratory studies. Patient is white count is just slightly elevated at 11.8 which is not clinically significant and more importantly his lactic acid is normal 1.1 going against any type of strangulation. An acute abdominal series was also performed which revealed no acute signs of obstruction or perforation. On reevaluation the patient is resting comfortably his pain remains minimal and I do not feel any hernia on exam indicating there is still been reduction. Therefore this time he is safe for discharge and can follow-up with general surgery to discuss further testing and or treatment options Lab Data Attestation: I reviewed the patient's lab results. Labs: Laboratory Results - last 24 hr 05/09/22 05/09/22 05/09/22 03:30 03:30 03:30 WBC 11.8 H RBC 5.32 Hgb 14.0 Hct 44.2 MCV 83.1 MCH 26.3 L MCHC 31.7 L RDW Std Deviation 39.4 RDW Coeff of Yovani 13.1 Plt Count 317 MPV 9.8 Immature Gran % (Auto) 0.500 Neut % (Auto) 62.2 Lymph % (Auto) 28.0 [place] % (Auto) 8.5 Eos % (Auto) 0.4 Baso % (Auto) 0.4 Absolute Neuts (auto) 7.3 Absolute Lymphs (auto) 3.31 Nucleated RBC % 0 Sodium 142 Potassium 3.7 Chloride 109 H Carbon Dioxide 27.0 Anion Gap 6 BUN 16 Creatinine 0.83 Estim Creat Clear Calc 138.42 Est GFR (MDRD) Af Amer 148 Est GFR (MDRD) Non-Af 122 BUN/Creatinine Ratio 19.3 Glucose 96 Lactic Acid 1.1 Calcium 8.5 Total Bilirubin 0.30 Direct Bilirubin 0.11 AST 14 L ALT 35 Alkaline Phosphatase 105 Total Protein 6.7 Albumin 3.6 Globulin 3.1 Lipase 81 Radiography Diagnostic Testing: Clinical Impression(s) from Imaging Studies Acute Abdomen Series 05/09/22 04:00 IMPRESSION: Normal x-ray examination of the chest, abdomen, and pelvis. Electronically Signed: Jeff Ge MD at 4:21 EST , Acute abdominal series with chest x-ray as interpreted by the emergency medicine physician reveals a nonobstructive nonspecific bowel gas pattern and chest x-ray component reveals no acute infiltrate pneumothorax or pleural effusion Discharge Plan Triage Chief Complaint: Abd Pain ED Provider: James Piña Dx/Rx/DC Orders Clinical Impression: Abdominal wall hernia Instructions: How a Hernia Develops, ED Hernia (Adult) Prescriptions: New oxycodone-acetaminophen [Percocet] 5-325 mg tablet 1 tab PO Q6H PRN (Reason: pain) 3 Days Qty: 12 0RF No Action Strattera Primary Care Provider: Dinh De La Torre Referrals: Rios Fitch MD [Med Staff - Active Staff] - Dinh De La Torre PA [Primary Care Provider] - Disposition Disposition: Home, Self Care
[2022-05-09] MEDS: 0.9% Normal Saline 1,000 ML 999 ML IV (03:38)
[2022-05-09] MEDS: Morphine 4 MG/ML Syringe IV (03:38)
[2022-05-09] MEDS: Ondansetron 4 MG/2 ML Vial IV (03:38)
[2022-05-09 03:40] LABS: Absolute Lymphocyte Count 3.31 X10^3/uL (0.83-4.51); Absolute Neutrophil Count 7.3 X10^3/uL (2.0-7.7); Basophil# 0.05 X10^3/uL; Basophil% 0.4 % (0-1); Eosinophil# 0.05 X10^3/uL; Eosinophils% 0.4 % (0-5); Hematocrit 44.2 % (40-54); Lymphocyte # 3.31 X10^3/ul (0.83-4.51); Mean Corp Hgb Conc 31.7 g/dL (32-36); Mean Corpuscular Hgb 26.3 pg (27.0-32.0); Mean Corpuscular Volume 83.1 fL (80-94); Mean Platelet Vol. 9.8 fl (6.2-12.0); Monocyte% 8.5 % (0-10); NRBC Flagged by Analyzer 0 % (0-5); Neutrophil # 7.34 X10^3/uL (2.7-7.7); Neutrophil % 62.2 % (47-70); Platelet Count 317 K/mm3 (150-450); RBC Distribution Width CV 13.1 % (11.6-14.6); RBC Distribution Width SD 39.4 fl (35.1-43.9); Red Blood Count 5.32 M/mm3 (4.6-6.2); White Blood Count 11.8 K/mm3 (4.4-11.0)
--- NOTE | 2022-05-09 04:00 | RAD_ITS ---
STUDY: X-RAY - ACUTE ABDOMINAL SERIES REASON FOR EXAM: Male, 22 years old. abd pain TECHNIQUE: Single view of the chest. Supine, erect, and decubitus view(s) of the abdomen were obtained. COMPARISON: None. FINDINGS: The lungs are clear and expanded. Normal size heart. Normal mediastinum and missy. Normal visualized pulmonary arteries. Normal visualized aortic arch and descending thoracic aorta. There is a non-specific bowel gas pattern. The soft tissue structures of the abdomen and pelvis are unremarkable. Normal visualized osseous structures. RAD/Acute Abdomen Inc Chest IMPRESSION: Normal x-ray examination of the chest, abdomen, and pelvis. Electronically Signed: Jeff Ge MD at 4:21 EST ,
[2022-05-09 04:02] LABS: AST(SGOT) 14 U/L (15-37); Alanine Aminotransfer ALT/SGPT 35 U/L (16-61); Albumin, Serum 3.6 g/dL (3.2-5.0); Alkaline Phosphatase 105 U/L (45-117); Anion Gap 6 (5-15); BUN 16 mg/dL (7-18); BUN/Creat Ratio 19.3 RATIO (10-20); Bilirubin, Direct 0.11 mg/dL (0.00-0.30); Calcium,Total 8.5 mg/dL (8.5-10.1); Chloride 109 mmol/L (98-107); Creatinine, Serum 0.83 mg/dL (0.70-1.30); EST Glomerular Filtration Rate 122 mL/min (>60); Est Glom Filt Rate - Afr Amer 148 mL/min (>60); Estimated Creatinine Clearance 138.42 ml/min; Globulin 3.1 g/dL (2.2-4.2); Glucose 96 mg/dL (74-106); Lipase 81 U/L (73-393); Potassium 3.7 mmol/L (3.5-5.1); Protein, Total 6.7 g/dL (6.4-8.2); Sodium Level 142 mmol/L (136-145)
[2022-05-09 04:03] LABS: Lactic Acid 1.1 mmol/L (0.4-1.9)
== END 2022-05-09 04:58 | disposition home or self-care (01) ==
PROVIDERS: Emergency Provider Emergency Medicine; PCP Physician Assistant; Visit Provider Emergency Medicine
DX: K42.9 Umbilical hernia without obstruction or gangrene (principal); R11.0 Nausea; F90.9 Attention-deficit hyperactivity disorder, unspecified type; Z79.899 Other long term (current) drug therapy
CPT/HCPCS: 74022; 80048; 80076; 83605; 83690; 85025; 96361; 96374; 96375; 99283; J7030; A4216; J2405

== ENCOUNTER 2023-02-22 19:11 | Emergency (ER) | payer MEDICARE, MEDICAID, SELFPAY ==
[2023-02-22 19:12] VITALS: BP 137/96; PULSE 88; RESP 16; TEMP 36.5; O2SAT 98
[2023-02-22 19:13] VITALS: BP 165/101; PULSE 83; RESP 18; TEMP 36.6; O2SAT 99; BMI 45.8
--- NOTE | 2023-02-22 19:22 | EDS_ITS ---
HPI History of Present Illness Chief Complaint: Headache PFSH PFSH Medical History ADHD Intellectual disability Non-smoker Home Medications Strattera 05/09/22 [History Last Taken Unknown] oxycodone-acetaminophen 5 mg-325 mg tablet (Percocet) 1 tab PO Q6H PRN pain 3 days #12 tabs 05/09/22 [Rx Last Taken Unknown] metoclopramide HCl 5 mg tablet (Reglan) 5 mg PO Q8H PRN PRN nausea and vomiting 7 days #20 tabs 02/22/23 [Rx Last Taken Unknown] Allergy/AdvReac Type Severity Reaction Status Date / Time pollen extracts Allergy Other Verified 02/22/23 19:14 Surgical History History of tonsillectomy and adenoidectomy Social History Smoking Status: Never smoker substance use type: does not use EXAM Physical Exam Const Vital Signs: 02/22/23 19:13 02/22/23 19:12 Temperature 97.9 F 97.7 F L Temperature Source Temporal Oral Pulse Rate 83 88 Respiratory Rate 18 16 Blood Pressure 165/101 H 137/96 H Blood Pressure Mean 122 109 Pulse Ox 99 98 Oxygen Delivery Method Room Air Room Air MDM MDM MDM Narrative Medical decision making narrative: HISTORY OF PRESENT ILLNESS: 23 year old M presents with headache. Patient states that started approximately 7 hours prior to arrival. Is constant severe. Is not similar to prior headaches. Denies any head trauma. Denies any recent illnesses. Denies any fever or neck stiffness. Patient denies sudden onset or thunderclap headache, denies maximal intensity within 1 minute, vomiting, neck pain or stiffness, changes in vision, fever, history malignancy, syncope, seizures. He does note chest pain for last several days intermittently but denies any chest pain or shortness of breath now. The patient denies recent surgery in the last 4 weeks or immobilization in the last 3 days, denies previous diagnosis of DVT or PE, hemoptysis, unilateral leg swelling or malignancy with treatment the last 6 months or palliative. No estrogen use noted. Patient denies sudden onset of pain, no tearing sensation, no migratory symptoms, no new numbness, weakness or loss of sensation. Patient denies family history or personal history of Connective tissue disorders (Marfan's Syndrome, Elsie Danlos etc). Denies any family or personal history of early cardiac . REVIEW OF SYSTEMS: All other systems reviewed and are negative except as noted in the history of present illness. At least 10 review of systems reviewed and are negative except as noted in history of present illness. PHYSICAL EXAM: Nursing triage notes reviewed, Vital signs reviewed Constitutional: please see mdm HENT: MMM Eyes: Pupils equal round and reactive to light, Extraocular muscles intact Neck: No stridor, no JVD, full neck ROM Lungs: Clear to auscultation, No wheezing or rales. No increased work of breathing, no conversational dyspnea, no accessory muscle use, no nasal flaring. No respiratory distress noted Heart: Regular rate and rhythm, No murmurs, No rubs and No gallops, 2+ distal pulses (radial, femoral, posterior tibial) in all extremities Abdomen: Soft, there is no tenderness, rigidity, rebound or guarding, no obvious peritoneal signs, no palpable pulsatile abdominal masses, no auscultated abdominal bruit : No CVAT Extremities: No edema Neuro: Alert and oriented x3, neuro exam at baseline, cranial nerves II through XII are intact. No pain with extraocular muscle movement. There is negative test of skew. Normal speech. 5 of 5 strength in upper and lower extremities in flexion extension. Intact sensation to light touch in upper and lower extremity dermatomes. No truncal or extremity ataxia. No dysdiadochokinesia. Normal gait. 2+ reflexes. No meningeal signs. Negative Babinski. NIH of 0 Skin: No rash or lesions noted MEDICAL DECISION MAKING: Chief Complaint: Headache External records reviewed: CT scan of the brain from 2018 shows no acute intracranial process Factors affecting care: ADHD Social determinants of health: No alcohol illicit drug use History obtained from others: The patient's family Consults: none [facility] Narrative: Patient was hemodynamically stable, afebrile, nontoxic-appearing. Exam without focal neurologic deficit.NIH 0 EKG with normal sinus rhythm, normal axis, no intervals, no STEMI. no signs of arrythmia, ischemia. I considered the following differential diagnosis: Subarachnoid hemorrhage, epidural hematoma, ICH, meningitis, carotid artery dissection, primary headache (primary headache, migraine, tension headache, cluster headache). The patient looks great and is in no significant objective discomfort currently. The patient's headache is non-specific. Exam is unremarkable. The patient is in no distress and the patient?s neurological exam is non-focal, neck is supple and without meningismus. The headache is not consistent with meningitis or infection, nor is it consistent with intracranial bleed (SAH etc.), carotid dissection, nor mass by history and examination. Medication and outpatient fol low-up was instructed. The patient was instructed to return as needed or if symptoms changed or worsened, fever developed or inability to tolerate fluids. The patient agreed with plan. The patient and/or family, caregivers express understanding. The patient and/or family, caregivers agrees with the plan. Total critical care time today provided was at least 0 minutes. This excludes separately billable procedures. Critical care time (if documented) is secondary to the patient having high probability of clinically significant/life threatening deterioration in the patient's condition which required my urgent intervention. Shared decision making: I will have a discussion with the patient and or visitors regarding risk/benefits of further testing or admission. They will be made aware of of the risk/benefits inherent in this decision they will be given the opportunity to voice understanding. Lab Data Labs: Laboratory Results - last 24 hr 02/22/23 19:56 POC Glucose 99 Discharge Plan Triage Chief Complaint: Headache ED Provider: Ruben Brown Dx/Rx/DC Orders Instructions: ED Headache Unspecified Prescriptions: New metoclopramide HCl [Reglan] 5 mg tablet 5 mg PO Q8H PRN PRN (Reason: nausea and vomiting) 7 Days Qty: 20 0RF No Action Strattera oxycodone-acetaminophen [Percocet] 5-325 mg tablet 1 tab PO Q6H PRN (Reason: pain) 3 Days Qty: 12 0RF Stand Alone Forms: ED Work / School Excuse Primary Care Provider: Dinh De La Torre Referrals: Dinh De La Torre PA [Primary Care Provider] - Activity Restrictions/Additional Instructions: Thank you for trusting us with your care today! Please take Tylenol (2 pills, 650 mg), ibuprofen (2 pills, 400 mg) every 6 hours as needed for pain and fever control. Please return to the emergency department if your symptoms change or worsen. Please follow with your primary care physician for further outpatient evaluation and management. Disposition Disposition: Home, Self Care Discharge Date/Time: 02/22/23 20:30
--- NOTE | 2023-02-22 19:33 | EKG12_ITS ---
Test Reason : Headache Blood Pressure : / mmHG Vent. Rate : 079 BPM Atrial Rate : 079 BPM P-R Int : 136 ms QRS Dur : 114 ms QT Int : 394 ms P-R-T Axes : 033 -09 017 degrees QTc Int : 451 ms Normal sinus rhythm Minimal voltage criteria for LVH, may be normal variant ( R in aVL ) Borderline ECG Confirmed by BHAVANA YANEZ, YASHIRA ([id number]), fan mail editor USMAN POWELL ([id number]) on 02/24/2023 10:46:41 AM Referred By: Confirmed By:YASHIRA BATEMAN MD
[2023-02-22] MEDS: Ketorolac 15 MG/ML Vial IM (19:40)
[2023-02-22] MEDS: Acetaminophen 325 MG Tablet 650 MG PO (19:40)
[2023-02-22] MEDS: Metoclopramide 5 MG TABLET PO (20:08)
[2023-02-22 20:14] LABS: Bedside Glucose 99 mg/dL (74-106)
== END 2023-02-22 20:30 | disposition home or self-care (01) ==
PROVIDERS: Emergency Provider Emergency Medicine; PCP Physician Assistant; Visit Provider Emergency Medicine
DX: R51.9 Headache, unspecified (principal); F90.9 Attention-deficit hyperactivity disorder, unspecified type
CPT/HCPCS: 82962; 93005; 96372; 99284

== ENCOUNTER 2023-05-24 01:25 | Emergency (ER) | payer MEDICARE, MEDICAID, SELFPAY ==
[2023-05-24 01:25] VITALS: BP 167/107; PULSE 97; RESP 20; TEMP 36.6; O2SAT 99; BMI 49.4
--- OUTSIDE RECORDS SUMMARY | 2023-05-24 01:46 | XMS RPT_ITS | CCD ---
Author Name Unknown Address [facility] [address] [place] [id number] Organization [facility] Care Team Providers Care Photoengraving Supervisor Name Role Phone Dinh De La Torre PA-C Primary Care Provider Dinh DE LA TORRE Attending Unavailable Dinh DE LA TORRE Primary Care Unavailable Dinh DE LA TORRE Attending Unavailable Dinh DE LA TORRE Primary Care Unavailable Dinh DE LA TORRE Primary Care Unavailable Allergies Allergy Classification Reported Allergen(s) Allergy Type Date of Onset Reaction(s) Facility (12 sources) [place]en; Translations: [POLLEN EXTRACTS] Drug Allergy 2 Other: See Comments [facility] (11 sources) Environmental [Other] Propensity to adverse reactions 6 Cough [facility] Work Phone: (1 source) OTHER; Translations: [OTHER] Propensity to adverse reactions (disorder) [address] [facility] Repository Medications Current Medications Medication Drug Class(es) Dates Sig (Normalized) Sig (Original) cephalexin 500 mg oral capsule (4 sources) Cephalosporin Antibacterial Start: 03-11-2022 End: 03-18-2022 take 1 capsule by mouth three times daily cephALEXin (KEFLEX) 500 mg capsule Indications: Recurrent UTI (urinary tract infection) Take 1 capsule by mouth three times daily for 7 days. 21 capsule 0 03/11/2022 03/18/2022 Active Completed/Discontinued Medications Medication Drug Class(es) Dates Sig (Normalized) Sig (Original) amoxicillin 875 mg / clavulanate 125 mg oral tablet (7 sources) Penicillin-class Antibacterial Start: 04-12-2021 End: 09-03-2022 amoxicillin-clavul anic acid (AUGMENTIN) 875-125 mg per tablet Take by mouth. 0 04/12/2021 09/03/2022 Discontinued Problems Active Problems Problem Classification Problem Date Documented Date Episodic/Chronic Abdominal hernia (3 sources) Hernia of anterior abdominal wall; Translations: [Ventral hernia without obstruction or gangrene] Onset: 03-16-2023 Episodic Disorders of lipid metabolism (3 sources) Mixed hyperlipidemia; Translations: [Mixed hyperlipidemia] Onset: 03-16-2023 Chronic Disorders usually diagnosed in infancy, childhood, or adolescence (14 sources) Attention deficit hyperactivity disorder, predominantly inattentive type; Translations: [Other specified behavioral and emotional disorders with onset usually occurring in childhood and adolescence] Onset: 04-11-2010 04-11-2010 Chronic Genitourinary symptoms and ill-defined conditions (1 source) Dysuria; Translations: [Dysuria] Episodic Immunizations and screening for infectious disease (2 sources) Suspected disease caused by 2019-nCoV; Translations: [Suspected COVID-19 virus infection] Episodic Other nutritional; endocrine; and metabolic disorders (12 sources) Metabolic syndrome X; Translations: [Metabolic syndrome] Onset: 07-15-2021 07-15-2021 Chronic Other nutritional; endocrine; and metabolic disorders (2 sources) Body mass index 40+ - severely obese; Translations: [Morbid (severe) obesity due to excess calories] Chronic Other nutritional; endocrine; and metabolic disorders (1 source) Morbid (severe) obesity due to excess calories; Translations: [Obesity, Class III, BMI 40-49.9 (morbid obesity) ([facility])] Onset: 03-16-2023 Chronic Other screening for suspected conditions (not mental disorders or infectious disease) (2 sources) Raised low density lipoprotein cholesterol; Translations: [Other specified abnormal findings of blood chemistry] Episodic Other upper respiratory disease (11 sources) Allergic rhinitis; Translations: [Allergic rhinitis, unspecified] Onset: 01-22-2007 01-22-2007 Chronic Residual codes; unclassified (2 sources) Family history of diabetes mellitus; Translations: [Family history of diabetes mellitus] Episodic Residual codes; unclassified (1 source) Family history of diabetes mellitus; Translations: [FH: diabetes mellitus] Onset: 03-16-2023 Episodic Urinary tract infections (1 source) Recurrent urinary tract infection; Translations: [Urinary tract infection, site not specified] Episodic Past or Other Problems Problem Classification Problem Date Documented Da te Episodic/Chronic Other nutritional; endocrine; and metabolic disorders (11 sources) Childhood obesity; Translations: [Body mass index (BMI) pediatric, greater than or equal to 95th percentile for age] Onset: 12-17-2015 12-17-2015 Episodic Other skin disorders (13 sources) Acanthosis nigricans; Translations: [Acanthosis nigricans] Onset: 12-18-2015 12-18-2015 Episodic Other skin disorders (1 source) Acanthosis nigricans; Translations: [Acanthosis nigricans] Onset: 12-18-2015 Episodic Results Test Name Value Interpretation Reference Range Facil ity Vital Signs Date Time Vital Sign Value Performing Clinician Faci lity 03-16-2023 11:20-0400 Body weight 142.88 kg NA De La Torre PA-C Work Phone: [facility] 03-16-2023 11:20-0400 Diastolic blood pressure 82 mm[Hg] NA De La Torre PA-C Work Phone: [facility] 03-16-2023 11:20-0400 Heart rate 102 /min NA De La Torre PA-C Work Phone: [facility] 03-16-2023 11:20-0400 Respiratory rate 16 /min NA De La Torre PA-C Work Phone: [facility] 03-16-2023 11:20-0400 SaO2% (BldA) [Mass fraction] 99 % NA De La Torre PA-C Work Phone: [facility] 03-16-2023 11:20-0400 Systolic blood pressure 140 mm[Hg] NA De La Torre PA-C Work Phone: [facility] 09-04-2022 12:45-0400 Body weight 142.88 kg NA De La Torre PA-C Work Phone: [facility] 09-04-2022 12:45-0400 Diastolic blood pressure 80 mm[Hg] NA De La Torre PA-C Work Phone: [facility] 09-04-2022 12:45-0400 Heart rate 80 /min NA De La Torre PA-C Work Phone: [facility] 09-04-2022 12:45-0400 Respiratory rate 18 /min NA De La Torre PA-C Work Phone: [facility] 09-04-2022 12:45-0400 SaO2% (BldA) [Mass fraction] 97 % NA De La Torre PA-C Work Phone: [facility] 09-04-2022 12:45-0400 Systolic blood pressure 120 mm[Hg] NA De La Torre PA-C Work Phone: [facility] 07-27-2022 08:59-0400 Body temperature 98.8 [degF] Jw Pendlebury [employer] IN[employer]ER[employer] Work Phone: [facility] 07-27-2022 08:59-0400 Body weight 139.53 kg Jw Pendlebury [employer] INST[employer]ER.[employer] Work Phone: [facility] 07-27-2022 08:59-0400 Diastolic blood pressure 82 mm[Hg] Jw Pendlebury [employer] INST[employer]ER.[employer] Work Phone: [facility] 07-27-2022 08:59-0400 Heart rate 100 /min Jw Pendlebury [employer] INST[employer]ER.[employer] Work Phone: [facility] 07-27-2022 08:59-0400 Respiratory rate 21 /min Jw Pendlebury [employer] INST[employer]ER.[employer] Work Phone: [facility] 07-27-2022 08:59-0400 SaO2% (BldA) [Mass fraction] 99 % Jw Pendlebury [employer] INSTALLER.[employer] Work Phone: [facility] 07-27-2022 08:59-0400 Systolic blood pressure 142 mm[Hg] Jw Pendlebury [employer] INST[employer]ER.[employer] Work Phone: [facility] 03-11-2022 18:02-0400 Body temperature 98.6 [degF] Lisa Valderrama [employer] INST[employer]ER.[employer] Work Phone: [facility] 03-11-2022 18:02-0400 Body weight 139.25 kg Lisa Valderrama [employer] INST[employer]ER.[employer] Work Phone: [facility] 03-11-2022 18:02-0400 Diastolic blood pressure 62 mm[Hg] Lisa Praisler-Casey [employer] INSTALLER.[employer] Work Phone: [facility] 03-11-2022 18:02-0400 Heart rate 90 /min Lisa Pradebraler-Casey [employer] IN[employer]ER[employer] Work Phone: [facility] 03-11-2022 18:02-0400 Respiratory rate 16 /min Lisaefren Bernardo-Casey [employer] INST[employer]ER.[employer] Work Phone: [facility] 03-11-2022 18:02-0400 SaO2% (BldA) [Mass fraction] 97 % Lisa Praisjoe-Casey [employer] INSTALLER.[employer] Work Phone: [facility] 03-11-2022 18:02-0400 Systolic blood pressure 118 mm[Hg] Lisa Praisler-Casey [employer] INST[employer]ER.[employer] Work Phone: [facility] Encounters Encounter Date Encounter Type Care Provider Facility Start: 03-24-2023 Telephone encounter Dinh De La Torre PA-C Work Phone: [facility] Procedures Date Procedure Procedure Detail Performing Clinician Start: 03-11-2022 Urnls dip stick/tabl et rgnt auto w/o microscopy [facility] Provider Plan of Treatment Date Care Activity Detail Author Start: 04-12-2031 Urine microalbumin profile [facility] Start: 01-15-2023 Covid-19 Vaccine ( season) Covid-19 Vaccine () [facility] Start: 01-15-2023 Influenza vaccination [facility] Start: 09-04-2022 End: 11-04-2022 Basic metabolic 2000 panel - Serum or Plasma BASIC METABOLIC PNL Lab Routine Screening for diabetes mellitus Dysmetabolic syndrome Expected: 09/04/2022, Expires: 11/04/2022 [facility] Work Phone: Immunizations Immunization Date Immunization Notes Care Provider Ashlee youngblood 03-01-2023 influenza, injectabl e, quadrivalent, contains preservative NA Wil MERCADO Work Phone: [facility] 07-15-2021 influenza, injectabl e, quadrivalent, contains preservative Lisa Praisler-Wood [employer] IN[employer] Work Phone: [facility] 07-15-2021 influenza virus vacc ine, unspecified formulation JOHN De La Torre PA-C Work Phone: [facility] 04-12-2021 tetanus toxoid, redu tea diphtheria toxoid, and acellular pertussis vaccine, adsorbed Lisa Praisler-Wood [employer] INST[employer]ER.[employer] Work Phone: [facility] 03-21-2018 influenza, injectabl e, quadrivalent, contains preservative Lisa Praisler-Wood [employer] INST[employer]ER.[employer] Work Phone: [facility] 03-21-2018 influenza, injectabl e, quadrivalent, preservative free Lisa Praisler-Wood [employer] INSTALLER.[employer] Work Phone: [facility] 12-21-2016 Human Papillomavirus 9-valent vaccine Lisa Praisler-Wood [employer] COUNTER[employer] INSTALLER.[facility] Work Phone: [facility] 12-17-2015 Human Papillomavirus 9-valent vaccine Lisa Praisler-Wood [employer]TER[employer] INSTALLER.[employer] Work Phone: [facility] 12-17-2015 meningococcal polysaccharide (groups A, C, Y and W-135) diphtheria toxoid conjugate vaccine (MCV4P) Lisa Camposisjoe-Casey [employer] INSTALLER.[facility] Work Phone: [facility] 04-17-2015 influenza, injectabl e, quadrivalent, preservative free Lisa Praisler-Wood GR[employer]TER[employer] INSTALLER.[employer] Work Phone: [facility] Work Phone: 03-15-2014 influenza, seasonal, injectable Lisa Praisler-Wood [employer] INSTALLER.[employer] Work Phone: [facility] Work Phone: 04-01-2013 influenza virus vacc ine, unspecified formulation Lisa Praisler-Wood GR[employer]ITE COUNTERTOP INSTALLER.[employer] Work Phone: [facility] 08-06-2011 Meningococcal, MCV4, unspecified conjugate formulation(groups A, C, Y and W-135) Lisa Praisjoe-Casey [employer]TER[employer] INSTALLER.[employer] Work Phone: [facility] 08-06-2011 tetanus toxoid, redu tea diphtheria toxoid, and acellular pertussis vaccine, adsorbed Lisa Praisjoe-Wood GR[employer]TER[employer] INSTALLER.[facility] Work Phone: [facility] 03-22-2010 influenza virus vacc ine, unspecified formulation Lisa Praisler-Wood GR[employer] COUNTERTOP INSTALLER.[facility] Work Phone: [facility] Work Phone: 03-07-2009 influenza virus vacc ine, unspecified formulation Lisa Praisler-Wood GR[employer]ITE COUNTERTOP INSTALLER.[facility] Work Phone: [facility] Work Phone: 08-09-2003 diphtheria, tetanus toxoids and acellular pertussis vaccine Lisa Praisler-Wood GR[employer]ITE COUNTER[employer] INSTALLER.[facility] Work Phone: [facility] Work Phone: 08-09-2003 measles, mumps and rubella virus vaccine Lisa Praisler-Wood GR[employer]TER[employer] INST[employer]ER.[facility] Work Phone: [facility] Work Phone: 08-09-2003 poliovirus vaccine, inactivated Lisa Bernardo-Casey GR[employer] COUNTER[employer] INSTALLER.[facility] Work Phone: [facility] Work Phone: 04-03-2003 influenza virus vacc ine, unspecified formulation Lisa Praisler-Wood GR[employer]ITE COUNTERTOP INSTALLER.[facility] Work Phone: [facility] Work Phone: 03-05-2003 influenza virus vacc ine, unspecified formulation Lisa Praisler-Wood GRANITE COUNTERTOP INSTALLER.[facility] Work Phone: [facility] Work Phone: 05-24-2000 diphtheria, tetanus toxoids and acellular pertussis vaccine Lisa Praisler-Wood GR[employer] COUNTER[employer] INSTALLER.[facility] Work Phone: [facility] Work Phone: 05-24-2000 haemophilus influenz ae type b vaccine, HbOC conjugate Lisa Praisjoe-Casey [employer]TER[employer] INSTALLER.[employer] Work Phone: [facility] Work Phone: 05-24-2000 hepatitis B vaccine, pediatric or pediatric/adolescent dosage Lisa Valderrama GR[employer] INSTALLER.[employer] Work Phone: [facility] Work Phone: 03-10-2000 measles, mumps and rubella virus vaccine Lisa Valderrama GR[employer] INST[employer]ER.[employer] Work Phone: [facility] Work Phone: 03-10-2000 poliovirus vaccine, inactivated Lisa Valderrama GR[employer]TER[employer] INSTALLER.[employer] Work Phone: [facility] Work Phone: 03-10-2000 varicella virus vaccine Marge y Jannie [employer] INSTALLER.[employer] Work Phone: [facility] Work Phone: 02-23-2000 measles, mumps and rubella virus vaccine Lisa Valderrama GR[employer] COUNTERTOP INSTALLER.[employer] Work Phone: [facility] 02-23-2000 poliovirus vaccine, inactivated Lisa Valderrama GR[employer] COUNTERTOP INSTALLER.[employer] Work Phone: [facility] 02-23-2000 varicella virus vaccine Marge y Jannie GR[employer]TER[employer] INSTALLER.[employer] Work Phone: [facility] 1999 hepatitis B vaccine, pediatric or pediatric/adolescent dosage Lisa Valderrama GRANITE COUNTERTOP INSTALLER.[employer] Work Phone: [facility] Work Phone: 1999 diphtheria, tetanus toxoids and acellular pertussis vaccine Lisa Valderrama GRANITE COUNTERTOP INSTALLER.[employer] Work Phone: [facility] Work Phone: 1999 haemophilus influenz ae type b vaccine, HbOC conjugate Lisa Valderrama GRANITE COUNTERTOP INSTALLER.[employer] Work Phone: [facility] Work Phone: 1999 hepatitis B vaccine, pediatric or pediatric/adolescent dosage Lisa Valderrama GRANITE COUNTERTOP INSTALLER.[employer] Work Phone: [facility] Work Phone: 1999 diphtheria, tetanus toxoids and acellular pertussis vaccine Lisa Praisler-Wood GRANITE COUNTERTOP INSTALLER.[employer] Work Phone: [facility] Work Phone: 1999 haemophilus influenz ae type b vaccine, HbOC conjugate Lisa Praisler-Wood GRANITE COUNTERTOP INSTALLER.[employer] Work Phone: [facility] Work Phone: 1999 poliovirus vaccine, inactivated Lisa Praisler-Wood GR[employer] COUNTERTOP INSTALLER.[employer] Work Phone: [facility] Work Phone: 1999 diphtheria, tetanus toxoids and acellular pertussis vaccine Lisa Praisler-Wood GRANITE COUNTERTOP INSTALLER.[employer] Work Phone: [facility] Work Phone: 1999 haemophilus influenz ae type b vaccine, HbOC conjugate Lisa Praisler-Wood GR[employer] COUNTERTOP INSTALLER.[employer] Work Phone: [facility] Work Phone: 1999 poliovirus vaccine, inactivated Lisa Praisler-Wood GR[employer] COUNTER[employer] INSTALLER.[facility] Work Phone: [facility] Work Phone: Payers Date Payer Category Payer Medicare MEDICARE MEDICAR E A AND B [id number] 2021-Present [phone] [place] [address] Medicare [id number] 2021 Medicare [id number] 2021 Medicaid MEDICAID [facility] MEDICAID [id number] 2021-Present [phone] [address] [place] [address] Medicaid [id number] 2021 Medicaid [id number] Social History Date Type Detail Facility Start: 05-23-2021 End: 07-27-2022 Tobacco smoking status NHIS Ex-smoker [facility] End: 02-14-2021 History of tobacco use Current smoker [facility] End: 02-14-2021 History of tobacco use Cigarette Smoker [facility] Start: 05-23-2021 End: 07-27-2022 Tobacco use and exposure Smokeless tobacco non-user [facility] Start: 02-19-2022 End: 03-16-2023 Alcohol intake Current non-drinker of alcohol (finding) [facility] Start: 2000 Sex Assigned At Not on file [facility] Start: 02-07-2022 End: 02-17-2022 Exposure to SARS-CoV-2 (event) Not sure [facility] Start: 07-27-2022 Tobacco Comment Mom outside [facility] Start: 09-04-2022 End: 03-16-2023 History of Social function [facility] Work Phone: Start: 09-04-2022 End: 03-16-2023 Tobacco use panel [facility] Work Phone: Adult Depression Screening Assessment 0 [facility] Work Phone: Clinical Notes 03-11-2022 to 03-25-2023 Telephone Encounter - Randa Patel RN - 03/25/2023 8:35 AM ESTTelephone Encounter - Dinh De La Torre PA-C - 03/25/2023 7:00 AM ESTTelephone Encounter - Randa Patel RN - 03/24/2023 2:59 PM EST Note Date & Type Note Facility 03-25-2023 Miscellaneous Notes Patient notified. Randa Patel RN The following approved medication requests have been transmitted electronically. Requested Prescriptions Signed Prescriptions Disp Refills hydrOXYzine HCl (ATARAX) 10 mg tablet 90 tablet 1 Sig: Take 1 tablet by mouth three times a day as needed for anxiety. Authorizing Provider: Dinh DE LA TORRE PA-C Patient states he saw Elver De La Torre recently on 03/16. Reports one of the things they discussed was pt's anxiety but pt did not request antianxiety medication at that time. Pt calling today to state his anxiety is getting worse and asking if Elver would be agreeable to ordering something for him? Denies thoughts of self harm or of harming others. States at times his anxiety causes him to feel nervous and he will get chest pain and some lightheadedness. No sx's at this time. Pt reports he did go to ER for chest pain on 02/22, as indicated in last OV note, and ER cardiac work-up was normal . Pt uses [facility]. Please call patient with recommendation. Thank you. documented in this encounter [facility] 03-16-2023 Note HNO ID: [id number] Author: Dinh De La Torre PA-C Service: ? Author Type: Physician Photographic Specialist Type: Progress Notes Filed: 03/17/2023 2:32 PM Note Text: 23 year old male with c/o follow up to review mediction 02/22/2023 presented to ER identifying headache and chest pain States chest pain started about 3 months ago. Headache dull, started about 7 hours prior to ED visit Describes chest pain as a stabbing pain for an hour or two, that goes away and then comes back No factors that induce onset. Occurred while sitting. States 4/10 Has had continual episodes since. No SOB, syncope, difficulty breathing, diaphoresis, no burping/belching/ reflux. Sometimes some light headedness/ dizziness. Identifies feeling anxious a lot, particularly driving. States breathing calmly helps pain dissapate. Feels he is getting better emotionally, working, driving, helping mother with bills. 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 Feels has lessened appetite as a plus Difficulty staying focused on tasks or activities? Yes. Weight loss?: No. Insomnia?: No. Nausea, abdominal pain, bowels issues: No. Tics or tremors?: No. Mood disorder?: mood is good, feeling happy. Current emotional or physical stressors? No. Chest pain/Palpitations?: as above. Aware of risks associated with controlled substance use?: N/a. Hx of misuse/abuse/diversion of meds?: No. Any current use of marijuana or illicit drugs? No. Drug testing in last 12 months No. Obesity, class iii, bmi 40-49.9 (morbid obesity) (formerly [facility]) Vitals 03/11/2022 07/27/2022 09/04/2022 03/16/2023 WEIGHT in POUNDS 307 lb 307 lb 9.6 oz 315 lb 315 lb WEIGHT in KILOGRAMS 139.254 kg 139.526 kg 142.883 kg 142.883 kg Acanthosis nigricans Hemoglobin A1C (%) Date Value 07/15/2021 5.2 ) Hyperlipidemia, mixed Component Latest Ref Rng AND Units 12/18/2015 07/15/2021 Triglyceride <150 mg/dL 102 68 Cholesterol, Total <200 mg/dL 152 163 HDL Cholesterol >39 mg/dL 30 (L) 34 (L) VLDL Cholesterol <30 mg/dL 20 14 LDL Cholesterol <100 mg/dL 102 115 (H) Fasting Time hrs fasting 10 TC:HDL Ratio <5.10 5.07 (H) 4.79 LDL:HDL Ratio <2.54 3.40 3.38 (H) Non HDL Cholesterol <130 mg/dL 122 129 Fh: diabetes mellitus Ventral hernia without obstruction or gangrene Has seen Dr. Rivera: recommend surgical repair but needs to get weight down to 260lbs Trying to get weight down for surgery, HISTORIES FAMILY HISTORY Problem Relation Age of Onset Heart Maternal Grandmother Diabetes Maternal Grandmother Heart Maternal Grandfather Diabetes Maternal Grandfather other (NEUTROPENIA) Brother Diabetes Maternal Uncle Emphysema Maternal Aunt PAST MEDICAL HISTORY Diagnosis Date Allergic rhinitis, cause unspecified Attention deficit disorder with hyperactivity(314.01) has IEP at school Chlamydia infection 01/24/2022 [facility] ED Headache NEGATIVE HISTORY OF 08/06/2011 Normal Color Vision PAST SURGICAL HISTORY Procedure Laterality Date CIRCUMCISION W/CLAMP/OTH DEV W/BLOCK 1998 PAST SURGICAL HISTORY OF [place]ANDA Social History Tobacco Use Smoking status: Former Types: Cigarettes Quit date: 02/14/2021 Years since quittin.0 Smokeless tobacco: Never Tobacco comments: Mom outside Substance Use Topics Alcohol use: No Drug use: No ACTIVE PROBLEM LIST Allergic Rhinitis, Cause Unspecified Add (Attention Deficit Disorder) Body Mass Index Equal to Or Greater Than 95th Percentile for Age in Pediatric Patient Acanthosis Nigricans Dysmetabolic Syndrome Current Outpatient Medications Medication Sig Dispense Refill Atomoxetine (STRATTERA) 80 mg capsule Take 1 capsule by mouth once daily. 90 capsule 1 No current facility-administered medications for this visit. Meningococcal B Vaccine: Consider Based On Risk(1 of 2 - Patient Seeks Protection) Never done Hepatitis C Screening Never done HIV Screening Never done HPV Vaccine(3 - Male 3-dose series) due on 04/22/2017 Influenza Vaccine(1) due on 01/15/2023 Covid-19 Vaccine(3 - season) due on 01/15/2023 EXAM: BP 140/82 Pulse 102 Resp 16 Wt (!) 142.9 kg (315 lb) SpO2 99% BMI 48.30 kg/m? Pleasant morbidly obese young man in no acute distress. Alert and oriented all spheres. Normal affect and cognition. Speech normal. No deficits to learning or comprehension. A little more together today. Skin warm, dry, pink to lips and nailbeds. Normal turgor. Respirations regular and unlabored. Chest is normal shape. Lungs are clear to all ramirez with good air exchange through out. HRRR without murmur or gallop. No lifts, heaves, or rubs. Abdomen soft, non-tender . Extrem: no clubbing or cyanosis. Edema: none. Extremities are warm and pink with prompt capillary refill. ASSESSMENT/PLAN: 1. Attention deficit disorder (ADD) without hyper (more content not included)... [facility] 03-16-2023 Instructions Dinh De La Torre PA-C - 03/16/2023 11:51 AM EDT Chest pain: When to seek help -- If you have chest pain that is new, severe, prolonged, or if chest pain causes concern, call 911 immediately. The emergency medical services (EMS) personnel in your community are prepared to respond rapidly, and will take you to the nearest hospital. For a patient having a heart attack, every minute is important. Remember, the faster you get to a hospital, the sooner you can receive treatment. Do not drive yourself to the hospital and do not ask someone else to drive you. Calling 911 is safer than driving for two reasons: From the moment EMS personnel arrive, they can begin evaluating and treating chest pain. If you drive to the hospital, treatment cannot begin until you arrive in the emergency department. If a dangerous complication of a heart attack (eg, a serious irregular heart rhythm) occurs on the way to the hospital, EMS personnel are trained to treat the problem immediately. While waiting for the squad, rest sitting or laying down and try to remain calm. If you are not allergic: chew 4 Baby Aspirin or 2 adult aspirin. Aspirin has been shown to reduce incidence and severity with heart attacks. If anything changes, Let me know. documented in this encounter [facility] 03-16-2023 History of Presen t illness Narrative 23 year old male with c/o follow up to review mediction 02/22/2023 presented to ER identifying headache and chest pain States chest pain started about 3 months ago. Headache dull, started about 7 hours prior to ED visit Describes chest pain as a stabbing pain for an hour or two, that goes away and then comes back No factors that induce onset. Occurred while sitting. States 4/10 Has had continual episodes since. No SOB, syncope, difficulty breathing, diaphoresis, no burping/belching/ reflux. Sometimes some light headedness/ dizziness. Identifies feeling anxious a lot, particularly driving. States breathing calmly helps pain dissapate. Feels he is getting better emotionally, working, driving, helping mother with bills. 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 Feels has lessened appetite as a plus Difficulty staying focused on tasks or activities? Yes. Weight loss?: No. Insomnia?: No. Nausea, abdominal pain, bowels issues: No. Tics or tremors?: No. Mood disorder?: mood is good, feeling happy. Current emotional or physical stressors? No. Chest pain/Palpitations?: as above. Aware of risks associated with controlled substance use?: N/a. Hx of misuse/abuse/diversion of meds?: No. Any current use of marijuana or illicit drugs? No. Drug testing in last 12 months No. Obesity, class iii, bmi 40-49.9 (morbid obesity) (formerly [facility]) Vitals 03/11/2022 07/27/2022 09/04/2022 03/16/2023 WEIGHT in POUNDS 307 lb 307 lb 9.6 oz 315 lb 315 lb WEIGHT in KILOGRAMS 139.254 kg 139.526 kg 142.883 kg 142.883 kg Acanthosis nigricans Hemoglobin A1C (%) Date Value 07/15/2021 5.2 ) Hyperlipidemia, mixed Component Latest Ref Rng & Units 12/18/2015 07/15/2021 Triglyceride <150 mg/dL 102 68 Cholesterol, Total <200 mg/dL 152 163 HDL Cholesterol >39 mg/dL 30 (L) 34 (L) VLDL Cholesterol <30 mg/dL 20 14 LDL Cholesterol <100 mg/dL 102 115 (H) Fasting Time hrs fasting 10 TC:HDL Ratio <5.10 5.07 (H) 4.79 LDL:HDL Ratio <2.54 3.40 3.38 (H) Non HDL Cholesterol <130 mg/dL 122 129 Fh: diabetes mellitus Ventral hernia without obstruction or gangrene Has seen Dr. Rivera: recommend surgical repair but needs to get weight down to 260lbs Trying to get weight down for surgery, HISTORIES FAMILY HISTORY Problem Relation Age of Onset Heart Maternal Grandmother Diabetes Maternal Grandmother Heart Maternal Grandfather Diabetes Maternal Grandfather other (NEUTROPENIA) Brother Diabetes Maternal Uncle Emphysema Maternal Aunt PAST MEDICAL HISTORY Diagnosis Date Allergic rhinitis, cause unspecified Attention deficit disorder with hyperactivity(314.01) has IEP at school Chlamydia infection 01/24/2022 [facility] ED Headache NEGATIVE HISTORY OF 08/06/2011 Normal Color Vision PAST SURGICAL HISTORY Procedure Laterality Date CIRCUMCISION W/CLAMP/OTH DEV W/BLOCK 1998 PAST SURGICAL HISTORY OF T&A Social History Tobacco Use Smoking status: Former Types: Cigarettes Quit date: 02/14/2021 Years since quittin.0 Smokeless tobacco: Never Tobacco comments: Mom outside Substance Use Topics Alcohol use: No Drug use: No ACTIVE PROBLEM LIST Allergic Rhinitis, Cause Unspecified Add (Attention Deficit Disorder) Body Mass Index Equal to Or Greater Than 95th Percentile for Age in Pediatric Patient Acanthosis Nigricans Dysmetabolic Syndrome Current Outpatient Medications Medication Sig Dispense Refill Atomoxetine (STRATTERA) 80 mg capsule Take 1 capsule by mouth once daily. 90 capsule 1 No current facility-administered medications for this visit. Meningococcal B Vaccine: Consider Based On Risk(1 of 2 - Patient Seeks Protection) Never done Hepatitis C Screening Never done HIV Screening Never done HPV Vaccine(3 - Male 3-dose series) due on 04/22/2017 Influenza Vaccine(1) due on 01/15/2023 Covid-19 Vaccine(3 - 2022- season) due on 01/15/2023 EXAM: BP 140/82 Pulse 102 Resp 16 Wt (!) 142.9 kg (315 lb) SpO2 99% BMI 48.30 kg/m Pleasant morbidly obese young man in no acute distress. Alert and oriented all spheres. Normal affect and cognition. Speech normal. No deficits to learning or comprehension. A little more together today. Skin warm, dry, pink to lips and nailbeds. Normal turgor. Respirations regular and unlabored. \Chest is normal shape. Lungs are clear to all ramirez with good air exchange through out. HRRR without murmur or gallop. No lifts, heaves, or rubs. Abdomen soft, non-tender . Extrem: no clubbing or cyanosis. Edema: none. Extremities are warm and pink with prompt capillary refill. ASSESSMENT/PLAN: 1. Attention deficit disorder (ADD) without hyperactivity - ICD9: 314.00, ICD10: F98.8 (primary diagnosis) Continue medication which he feels is helping. States compliant with daily dosing. - ATOMOXETINE 80 MG CAPSULE 2. Obesity, Class III, BMI 40-49.9 (morbid obesity) (HCC) - ICD9: 278.01, ICD10: E66.01 Weight increasing - Behavioral intervention and - Pharmacological intervention discussed. Offered bariatric consult but doesn't want yet. 3. Acanthosis nigricans - ICD9: 701.2, ICD10: L83 No elevated blood sugars. Continue to monitor [id number] 4. Hyperlipidemia, mixed - ICD9: 272.2, ICD10: E78.2 Borderline with cholesterol and trigs Continue diet modification, exercise, weight loss focus 5. FH: diabetes mellitus - ICD9: V18.0, ICD10: Z83.3 6. Ventral hernia without obstruction or gangrene - ICD9: 553.20, ICD10: K43.9 Surgery anticipated, awaiting schedule date. No significant pain Some of this note may have been copied and pasted for the purpose of history context and comparison and has been adjusted for changes in prior data. Dinh De La Torre PA-C documented in this encounter [facility] 03-16-2023 Nurse Note Verified with mother over the phone that patient is taking Strattera 80 mg daily. She feels he is suffering from anxiety. He went to [facility] ER on 02/22/23 for headache and chest pain and work up was normal. Patient also complains of racing heart and tingling in hands per mother. Deidre Peña Ma 8:41 AM documented in this encounter [facility] 01-28-2023 Miscellaneous Notes Completed for faxed back as requested Patient has been identified by name and date of : Yes Type of form: verification of disability [facility] Form received via: Fax When form is completed, fax form to fax number provided. Form has been forwarded to: Provider's desk. Provider name: Elver Hernadez LPN documented in this encounter [facility] 09-14-2022 Miscellaneous Notes Patient calls to let provider know that his insurance will not cover any weight loss medication as discussed at visit. Paulina Smiley RN documented in this encounter [facility] 09-04-2022 Note HNO ID: [id number] Author: Dinh De La Torre PA-C Service: ? Author Type: Physician Photographic Specialist Type: Progress Notes Filed: 09/04/2022 1:55 PM Note Text: 22 year old male with c/o has ventral hernia Obesity, class iii, bmi 40-49.9 (morbid obesity) (hcc) (primary encounter diagnosis) Vitals 03/11/2022 07/27/2022 09/04/2022 WEIGHT in POUNDS 307 lb 307 lb 9.6 oz 315 lb Trying to cut out pizza, sour cream, ranch dressing, eating salads, fruits, vegetables, low daysi meals. Drinking water instead of pop. Exercising 3 days a week walking. Attention deficit disorder (add) without hyperactivity Current Treatment: Strattera 80mg daily Unreliable historian. Last rx 2018. States to nurse taking daily, tells me he takes it once in awhile. Wants to resume. States his mother knows what medication he takes. No medications noted in pharmacy reconciliation. HISTORIES FAMILY HISTORY Problem Relation Age of Onset Heart Maternal Grandmother Diabetes Maternal Grandmother Heart Maternal Grandfather Diabetes Maternal Grandfather other (NEUTROPENIA) Brother Diabetes Maternal Uncle Emphysema Maternal Aunt PAST MEDICAL HISTORY Diagnosis Date Allergic rhinitis, cause unspecified Attention deficit disorder with hyperactivity(314.01) has IEP at school Chlamydia infection 01/24/2022 [facility] ED Headache NEGATIVE HISTORY OF 08/06/2011 Normal Color Vision PAST SURGICAL HISTORY Procedure Laterality Date CIRCUMCISION W/CLAMP/OTH DEV W/BLOCK 1998 PAST SURGICAL HISTORY OF [facility] Social History Tobacco Use Smoking status: Former Types: Cigarettes Quit date: 02/14/2021 Years since quittin.5 Smokeless tobacco: Never Tobacco comments: Mom outside Substance Use Topics Alcohol use: No Drug use: No ACTIVE PROBLEM LIST Allergic Rhinitis, Cause Unspecified Add (Attention Deficit Disorder) Body Mass Index Equal to Or Greater Than 95th Percentile for Age in Pediatric Patient Acanthosis Nigricans Dysmetabolic Syndrome No current outpatient medications on file. No current facility-administered medications for this visit. MENINGOCOCCAL B: Consider based on risk(1 of 2 - Risk Bexsero 2-dose series) Never done HEPATITIS C SCREENING Never done HIV SCREENING Never done HPV VACCINE(3 - Male 3-dose series) due on 04/22/2017 COVID-19 VACCINE(3 - Booster for Pfizer series) due on 04/25/2021 DEPRESSION ASSESSMENT Never done EXAM: BP 120/80 Pulse 80 Resp 18 Wt (!) 142.9 kg (315 lb) SpO2 97% BMI 48.30 kg/m? Pleasant obese young man in no acute distress. Alert and oriented all spheres. Normal affect and cognition. Speech normal. Has learning disabilities. Unsure reliable historian or good with details. Skin warm, dry, pink to lips and nailbeds. Normal turgor. Several uniform brown moles. Acanthosis coloration on diral finger joints. Respirations regular and unlabored. HEENT: NCAT. No scleral icterus or conjunctival injection. TM's clear. Nose and oropharynx free from injection or lesion. Oral membranes moist and pink. Teeth in good repair, no gingivitis. No cervical lymph nodes. Thyroid non-tender, no masses, or enlargement. Carotids pulses 2+/4+ without bruits. No JVD with HOB at 30 degrees. Chest is normal shape. Lungs are clear to all ramirez with good air exchange through out. HRRR without murmur or gallop. No lifts, heaves, or rubs. Abdomen: abd wall hernia mid right abdomen which protrudes with straining on sit up, active bowel sounds throughout, soft, nontender, no masses or organomegaly. No CVAT. Extrem: no clubbing or cyanosis. Edema: none. Extremities are warm and pink with prompt capillary refill. ASSESSMENT/PLAN: 1. Ventral hernia without obstruction or gangrene - ICD9: 553.20, ICD10: K43.9 (primary diagnosis) - DEPRESSION SCREENING/ASSESSMENT - CBC 2. Obesity, Class III, BMI 40-49.9 (morbid obesity) (HCC) - ICD9: 278.01, ICD10: E66.01 Weight increasing - Behavioral intervention and - Pharmacological intervention Will need to call medicaid to find out which medications are covered for weight loss if any. Discussed incretins, Contrave as acceptable options. Insurance would not allow nutritional consult for listed diagnoses. - [facility] 3. Attention deficit disorder (ADD) without hyperactivity - ICD9: 314.00, ICD10: F98.8 Resume atomoxetine - ATOMOXETINE 80 MG CAPSULE - CBC 4. High serum low density lipoprotein (LDL) cholesterol - ICD9: 790.99, ICD10: R79.89 - LIPID PANEL BASIC 5. Acanthosis nigricans - ICD9: 701.2, ICD10: L83 6. Screening for diabetes mellitus - ICD9: V77.1, ICD10: Z13.1 - BASIC METABOLIC PNL. 7. Dysmetabolic syndrome - ICD9: 277.7, ICD10: E88.81 - BASIC METABOLIC PNL - LIPID PANEL BASIC - HEPATIC FUNCTION PNL 8. Hyperlipidemia, mixed - ICD9: 272.2, ICD10: E78.2 - to be determined upon return of lab results - Continue current medication. - Encouraged followi (more content not included)... [facility] 09-04-2022 History of Presen t illness Narrative 22 year old male with c/o has ventral hernia Obesity, class iii, bmi 40-49.9 (morbid obesity) (hcc) (primary encounter diagnosis) Vitals 03/11/2022 07/27/2022 09/04/2022 WEIGHT in POUNDS 307 lb 307 lb 9.6 oz 315 lb Trying to cut out pizza, sour cream, ranch dressing, eating salads, fruits, vegetables, low daysi meals. Drinking water instead of pop. Exercising 3 days a week walking. Attention deficit disorder (add) without hyperactivity Current Treatment: Strattera 80mg daily Unreliable historian. Last rx 2018. States to nurse taking daily, tells me he takes it once in awhile. Wants to resume. States his mother knows what medication he takes. No medications noted in pharmacy reconciliation. HISTORIES FAMILY HISTORY Problem Relation Age of Onset Heart Maternal Grandmother Diabetes Maternal Grandmother Heart Maternal Grandfather Diabetes Maternal Grandfather other (NEUTROPENIA) Brother Diabetes Maternal Uncle Emphysema Maternal Aunt PAST MEDICAL HISTORY Diagnosis Date Allergic rhinitis, cause unspecified Attention deficit disorder with hyperactivity(314.01) has IEP at school Chlamydia infection 01/24/2022 [facility] ED Headache NEGATIVE HISTORY OF 08/06/2011 Normal Color Vision PAST SURGICAL HISTORY Procedure Laterality Date CIRCUMCISION W/CLAMP/OTH DEV W/BLOCK 1998 PAST SURGICAL HISTORY OF T&A Social History Tobacco Use Smoking status: Former Types: Cigarettes Quit date: 02/14/2021 Years since quittin.5 Smokeless tobacco: Never Tobacco comments: Mom outside Substance Use Topics Alcohol use: No Drug use: No ACTIVE PROBLEM LIST Allergic Rhinitis, Cause Unspecified Add (Attention Deficit Disorder) Body Mass Index Equal to Or Greater Than 95th Percentile for Age in Pediatric Patient Acanthosis Nigricans Dysmetabolic Syndrome No current outpatient medications on file. No current facility-administered medications for this visit. MENINGOCOCCAL B: Consider based on risk(1 of 2 - Risk Bexsero 2-dose series) Never done HEPATITIS C SCREENING Never done HIV SCREENING Never done HPV VACCINE(3 - Male 3-dose series) due on 04/22/2017 COVID-19 VACCINE(3 - Booster for Pfizer series) due on 04/25/2021 DEPRESSION ASSESSMENT Never done EXAM: BP 120/80 Pulse 80 Resp 18 Wt (!) 142.9 kg (315 lb) SpO2 97% BMI 48.30 kg/m Pleasant obese young man in no acute distress. Alert and oriented all spheres. Normal affect and cognition. Speech normal. Has learning disabilities. Unsure reliable historian or good with details. Skin warm, dry, pink to lips and nailbeds. Normal turgor. Several uniform brown moles. Acanthosis coloration on diral finger joints. Respirations regular and unlabored. HEENT: NCAT. No scleral icterus or conjunctival injection. TM's clear. Nose and oropharynx free from injection or lesion. Oral membranes moist and pink. Teeth in good repair, no gingivitis. No cervical lymph nodes. Thyroid non-tender, no masses, or enlargement. Carotids pulses 2+/4+ without bruits. No JVD with HOB at 30 degrees. Chest is normal shape. Lungs are clear to all ramirez with good air exchange through out. HRRR without murmur or gallop. No lifts, heaves, or rubs. Abdomen: abd wall hernia mid right abdomen which protrudes with straining on sit up, active bowel sounds throughout, soft, nontender, no masses or organomegaly. No CVAT. Extrem: no clubbing or cyanosis. Edema: none. Extremities are warm and pink with prompt capillary refill. ASSESSMENT/PLAN: 1. Ventral hernia without obstruction or gangrene - ICD9: 553.20, ICD10: K43.9 (primary diagnosis) - DEPRESSION SCREENING/ASSESSMENT - CBC 2. Obesity, Class III, BMI 40-49.9 (morbid obesity) (HCC) - ICD9: 278.01, ICD10: E66.01 Weight increasing - Behavioral intervention and - Pharmacological intervention Will need to call medicaid to find out which medications are covered for weight loss if any. Discussed incretins, Contrave as acceptable options. Insurance would not allow nutritional consult for listed diagnoses. - [facility] 3. Attention deficit disorder (ADD) without hyperactivity - ICD9: 314.00, ICD10: F98.8 Resume atomoxetine - ATOMOXETINE 80 MG CAPSULE - CBC 4. High serum low density lipoprotein (LDL) cholesterol - ICD9: 790.99, ICD10: R79.89 - LIPID PANEL BASIC 5. Acanthosis nigricans - ICD9: 701.2, ICD10: L83 6. Screening for diabetes mellitus - ICD9: V77.1, ICD10: Z13.1 - BASIC METABOLIC PNL. 7. Dysmetabolic syndrome - ICD9: 277.7, ICD10: E88.81 - BASIC METABOLIC PNL - LIPID PANEL BASIC - HEPATIC FUNCTION PNL 8. Hyperlipidemia, mixed - ICD9: 272.2, ICD10: E78.2 - to be determined upon return of lab results - Continue current medication. - Encouraged following a low fat, low cholesterol diet. - Discussed the benefits of regular aerobic exercise and weight loss. - LIPID PANEL BASIC 9. FH: diabetes mellitus - ICD9: V18.0, ICD10: Z83.3 Dinh De La Torre PA-C documented in this encounter [facility] 07-28-2022 Miscellaneous Notes Patient given results and verbalized understanding of instructions given.Maria Luisa Pate ----- Message from José Antonio Hannah MD sent at 07/27/2022 8:28 PM EDT ----- Negative for COVID and influenza. documented in this encounter [facility] 07-27-2022 Note HNO ID: [id number] Author: Jw Monroe APRN.CANDACE Service: ? Author Type: Nurse Practitioner Type: Progress Notes Filed: 07/27/2022 9:25 AM Note Text: Subjective HPI Nontoxic-appearing male presents to urgent care with chief complaint of upper respiratory tract like infection. Duration of symptoms 3 days. Associated symptoms sore throat, nasal congestion, nasal discharge and nonproductive cough. Patient denies the use of any [id number] medications or home remedies for symptom management. Patient states recent sick contacts with similar signs and symptoms. [facility] COVID test was negative. Patient denies any productive cough, fever, chest pain, shortness of breath, pleuritic pain, rash, abdominal pain, nausea, vomiting or change in bowel or bladder habit. Past medical history prescription medication use allergies reviewed. .Patient presents with: Cough: Chest congestion, wheezing x 3 days PAST MEDICAL HISTORY Diagnosis Date Allergic rhinitis, cause unspecified Attention deficit disorder with hyperactivity(314.01) has IEP at school Chlamydia infection 01/24/2022 [facility] ED Headache NEGATIVE HISTORY OF 08/06/2011 Normal Color Vision PAST SURGICAL HISTORY Procedure Laterality Date CIRCUMCISION W/CLAMP/OTH DEV W/BLOCK 1998 PAST SURGICAL HISTORY OF [facility] ALLERGIES Environmental [Other] and Pollen Extracts MEDICATIONS fluticasone (FLONASE) 50 mcg/actuation nasal spray Use 2 Sprays in each nostril once daily. Rinse mouth after use. Atomoxetine (STRATTERA) 80 mg capsule Take 1 capsule by mouth once daily. amoxicillin-clavulanic acid (AUGMENTIN) 875-125 mg per tablet Take by mouth. (Patient not taking: Reported on 03/11/2022) FAMILY HISTORY Problem Relation Age of Onset Heart Maternal Grandmother Diabetes Maternal Grandmother Heart Maternal Grandfather Diabetes Maternal Grandfather other (NEUTROPENIA) Brother Diabetes Maternal Uncle Emphysema Maternal Aunt Social History Tobacco Use Smoking status: Former Types: Cigarettes Quit date: 02/14/2021 Years since quittin.4 Smokeless tobacco: Never Tobacco comments: Mom outside Substance Use Topics Alcohol use: No Drug use: No BP 142/82 Pulse 100 Temp 37.1 ?C (98.8 ?F) Resp 21 Wt (!) 139.5 kg (307 lb 9.6 oz) SpO2 99% BMI 47.16 kg/m? Review of Systems Constitutional: Negative for chills, fever and malaise/fatigue. HENT: Positive for congestion and sore throat. Negative for ear discharge, ear pain and sinus pain. Eyes: Negative for blurred vision, pain, discharge and redness. Respiratory: Positive for cough. Negative for hemoptysis, sputum production, shortness of breath, wheezing and stridor. Cardiovascular: Negative for chest pain. Gastrointestinal: Negative for abdominal pain, diarrhea, nausea and vomiting. Musculoskeletal: Negative for myalgias. Skin: Negative for itching and rash. Neurological: Positive for headaches. Negative for dizziness. Objective Physical Exam Constitutional: General: He is not in acute distress. Appearance: He is not diaphoretic. HENT: Head: Normocephalic. Nose: Congestion present. Mouth/Throat: Mouth: Mucous membranes are moist. Pharynx: Oropharynx is clear. No oropharyngeal exudate or posterior oropharyngeal erythema. Eyes: Conjunctiva/sclera: Conjunctivae normal. Pupils: Pupils are equal, round, and reactive to light. Cardiovascular: Rate and Rhythm: Normal rate and regular rhythm. Heart sounds: Normal heart sounds. Pulmonary: Effort: Pulmonary effort is normal. No tachypnea, accessory muscle usage or respiratory distress. Breath sounds: Normal breath sounds. No stridor. No wheezing, rhonchi or rales. Abdominal: Palpations: Abdomen is soft. Tenderness: There is no abdominal tenderness. There is no guarding or rebound. Musculoskeletal: Cervical back: Normal range of motion and neck supple. No rigidity or tenderness. Lymphadenopathy: Cervical: No cervical adenopathy. Skin: General: Skin is warm and dry. Neurological: Mental Status: He is alert and oriented to person, place, and time. ASSESSMENT/PLAN: 1. Suspected COVID-19 virus infection - ICD9: V01.79, ICD10: Z20.822 - COVID WITH FLUA+B, ROUTINE No evidence of bacterial infection noted on exam. Treat as viral etiology. Patient was educated on supportive therapies. Patient will follow up with primary care provider as needed. Patient was instructed to immediately proceed to emergency room for any new, worsening, or symptoms lasting longer than anticipated. The patient's clinical presentation is otherwise unremarkable at this time. Based on exam and clinical finding, the patient is stable for discharge. Plan of care was discussed with patient. Patient verbalizes understanding and agrees to plan of care. This note was generated using [employer] software. It may contain errors in wording, punctuation, or spelling. Jw Monroe, (more content not included)... [facility] 07-27-2022 Instructions Jw Monroe APRN.B[employer]T [employer]OP [employer]ER - 07/27/2022 9:17 AM EDT How to Manage Common Symptoms Associated with COVID for Adults Fever- Fever is a temperature over 100.4 F and can occur when the body is fighting an infection. To help treat a fever: Drink plenty of fluids and stay well hydrated. Eat small amounts of easy to digest food. Rest. Your body needs rest to recover, but getting up and moving around the house frequently is a good idea. You should try to continue doing your normal daily activities (bathing, toileting, grooming, cooking), though you will probably feel tired, and need to rest often. Avoid any heavy activity or exercise, as this will increase your body temperature. Dress in light clothing and stay covered in a light sheet. Keep the room temperature cool. Take a slightly warm (not cold or cool) bath, or apply damp washcloths to the forehead and wrists. Cough- Cough is a common symptom associated with COVID and can be bothersome. To help treat a cough: Stay well hydrated. Try warm water or tea with lemon and/or honey to help soothe the cough. Use a humidifier to add moisture to the air. Try a product with menthol, like a cough drop or a rub for your chest such as Vicks, which can help reduce cough. Try cough drops. Avoid smoking and other strong odors or perfumes. Try breathing exercises to keep your lungs open and clear. Take a big deep breath through your nose and hold for 5 seconds before slowly releasing. Repeat frequently, while you are awake. Congestion- Runny nose or nasal congestion can occur with COVID. Treatment can help relieve symptoms: Try OTC nasal saline spray, or nasal saline rinse to relieve mucus congestion. Nasal strips can help keep nasal passages open, to increase airflow. Elevating your head with an extra pillow in bed can help reduce congestion. Using a humidifier can increase moisture in the air, and make breathing easier. Sore Throat- Another common symptom with COVID, can be managed at home by: Stay well hydrated. Gargle with salt water - mix teaspoon salt with 1 cup of warm water and gargle. This helps to loosen mucus in the back of the throat and may reduce discomfort. Try ice chips, popsicles or lozenges to soothe the throat. Nausea/Vomiting/Diarrhea- These are common symptoms, and staying hydrated is most important. If you are nauseous or vomiting, start with small sips of water every 10-15 minutes and increase as tolerated. You can try sucking an ice cube too. If tolerating, you can try pedialyte or Gatorade, or flat sprite or tracy-mj. Start slowly and increase as you are able to. Instead of meals, try smaller, more frequent snacks. Try eating bland foods like crackers, toast, rice, and applesauce. Avoid spicy, greasy or fried foods and dairy containing foods. Even if you aren't feeling hungry due to lack of smell or taste, it is important to try to take in some food when you are able. After drinking and eating, rest in an upright position for up to two hours as needed to help decrease nauseous feelings. Try closing your eyes, avoid moving and watching TV. Avoid strong odors that can make you feel more nauseated. When to seek emergency medical attention Look for emergency warning signs for COVID-19. If having any of these symptoms, seek emergency medical care immediately: Trouble breathing Persistent pain or pressure in the chest New confusion Inability to wake or stay awake Bluish lips or face *This list is not all possible symptoms. Please call your medical provider for any other symptoms that are severe or concerning to you. documented in this encounter [facility] 07-27-2022 History of Presen t illness Narrative Subjective HPI Nontoxic-appearing male presents to urgent care with chief complaint of upper respiratory tract like infection. Duration of symptoms 3 days. Associated symptoms sore throat, nasal congestion, nasal discharge and nonproductive cough. Patient denies the use of any [id number]-mlhkimt medications or home remedies for symptom management. Patient states recent sick contacts with similar signs and symptoms. [facility] COVID test was negative. Patient denies any productive cough, fever, chest pain, shortness of breath, pleuritic pain, rash, abdominal pain, nausea, vomiting or change in bowel or bladder habit. Past medical history prescription medication use allergies reviewed. .Patient presents with: Cough: Chest congestion, wheezing x 3 days PAST MEDICAL HISTORY Diagnosis Date Allergic rhinitis, cause unspecified Attention deficit disorder with hyperactivity(314.01) has IEP at school Chlamydia infection 01/24/2022 [facility] ED Headache NEGATIVE HISTORY OF 08/06/2011 Normal Color Vision PAST SURGICAL HISTORY Procedure Laterality Date CIRCUMCISION W/CLAMP/OTH DEV W/BLOCK 1998 PAST SURGICAL HISTORY OF T&A ALLERGIES Environmental [Other] and Pollen Extracts MEDICATIONS fluticasone (FLONASE) 50 mcg/actuation nasal spray Use 2 Sprays in each nostril once daily. Rinse mouth after use. Atomoxetine (STRATTERA) 80 mg capsule Take 1 capsule by mouth once daily. amoxicillin-clavulanic acid (AUGMENTIN) 875-125 mg per tablet Take by mouth. (Patient not taking: Reported on 03/11/2022) FAMILY HISTORY Problem Relation Age of Onset Heart Maternal Grandmother Diabetes Maternal Grandmother Heart Maternal Grandfather Diabetes Maternal Grandfather other (NEUTROPENIA) Brother Diabetes Maternal Uncle Emphysema Maternal Aunt Social History Tobacco Use Smoking status: Former Types: Cigarettes Quit date: 02/14/2021 Years since quittin.4 Smokeless tobacco: Never Tobacco comments: Mom outside Substance Use Topics Alcohol use: No Drug use: No BP 142/82 Pulse 100 Temp 37.1 C (98.8 F) Resp 21 Wt (!) 139.5 kg (307 lb 9.6 oz) SpO2 99% BMI 47.16 kg/m Review of Systems Constitutional: Negative for chills, fever and malaise/fatigue. HENT: Positive for congestion and sore throat. Negative for ear discharge, ear pain and sinus pain. Eyes: Negative for blurred vision, pain, discharge and redness. Respiratory: Positive for cough. Negative for hemoptysis, sputum production, shortness of breath, wheezing and stridor. Cardiovascular: Negative for chest pain. Gastrointestinal: Negative for abdominal pain, diarrhea, nausea and vomiting. Musculoskeletal: Negative for myalgias. Skin: Negative for itching and rash. Neurological: Positive for headaches. Negative for dizziness. Objective Physical Exam Constitutional: General: He is not in acute distress. Appearance: He is not diaphoretic. HENT: Head: Normocephalic. Nose: Congestion present. Mouth/Throat: Mouth: Mucous membranes are moist. Pharynx: Oropharynx is clear. No oropharyngeal exudate or posterior oropharyngeal erythema. Eyes: Conjunctiva/sclera: Conjunctivae normal. Pupils: Pupils are equal, round, and reactive to light. Cardiovascular: Rate and Rhythm: Normal rate and regular rhythm. Heart sounds: Normal heart sounds. Pulmonary: Effort: Pulmonary effort is normal. No tachypnea, accessory muscle usage or respiratory distress. Breath sounds: Normal breath sounds. No stridor. No wheezing, rhonchi or rales. Abdominal: Palpations: Abdomen is soft. Tenderness: There is no abdominal tenderness. There is no guarding or rebound. Musculoskeletal: Cervical back: Normal range of motion and neck supple. No rigidity or tenderness. Lymphadenopathy: Cervical: No cervical adenopathy. Skin: General: Skin is warm and dry. Neurological: Mental Status: He is alert and oriented to person, place, and time. ASSESSMENT/PLAN: 1. Suspected COVID-19 virus infection - ICD9: V01.79, ICD10: Z20.822 - COVID WITH FLUA+B, ROUTINE No evidence of bacterial infection noted on exam. Treat as viral etiology. Patient was educated on supportive therapies. Patient will follow up with primary care provider as needed. Patient was instructed to immediately proceed to emergency room for any new, worsening, or symptoms lasting longer than anticipated. The patient's clinical presentation is otherwise unremarkable at this time. Based on exam and clinical finding, the patient is stable for discharge. Plan of care was discussed with patient. Patient verbalizes understanding and agrees to plan of care. This note was generated using [employer] software. It may contain errors in wording, punctuation, or spelling. Jw Monreo APRN.CANDACE documented in this encounter [facility] 03-13-2022 Miscellaneous Notes ----- Message from Lisa Valderrama APRN.CNP sent at 03/13/2022 7:22 AM EDT ----- Please advise patient the urine culture was negative. documented in this encounter [facility] 03-12-2022 Miscellaneous Notes Phone call placed patient advised (see prior provider encounter) Patient verbalized understanding, agreed with plan of care. .me Please notify of positive trichomonas. This is a sexually transmitted infection. Treatment is 2 gms of metronidazole one time dose, abstinence for one week. No alcohol for 24 hours with dosing. All partners need treated. Prescription sent to [facility]. Please also notify negative for covid and flu Addie Hanna APRN.CANDACE Please notify of positive trichomonas. This is a sexually transmitted infection. Treatment is 2 gms of metronidazole one time dose, abstinence for one week. All partners need treated. Prescription sent to [facility]. Addie Hanna APRN.CNP documented in this encounter [facility] 03-12-2022 Miscellaneous Notes Patient calling with lab result. Patient denies any new or worsening symptoms of which a provider is not aware:Yes. Reason for call: Requesting covid-19 test results Outcome: Lab still in process, link for MyChart sent to patient. Patient can also call NOC or office later to see if results are final. documented in this encounter [facility] 03-11-2022 History of Presen t illness Narrative Subjective Hematuria Irritative symptoms include frequency. Irritative symptoms do not include urgency. Associated symptoms include dysuria. Pertinent negatives include no abdominal pain, chills, fever, flank pain, nausea or vomiting. Andrei Everett is a 22 year old male who presents with burning with urination and hematuria. Pt was seen in [place] [facility] on 01/24/2022 for dysuria and given cephalexin, then returned on 02/08/2022 and was treated with doxycycline and bactrim. Pt states he tested positive for chlamydia at [facility], but was not tested for chlamydia or trich. Pt was then seen in [facility] on 02/17/2022 for persistent symptoms and was treated with macrobid. Pt denies flank pain and abdominal pain. Pt also endorses cough and congestion x 4 days. Pt denies sore throat, rhinorrhea, or fever. No treatments tried at home. Review of Systems Constitutional: Negative for chills and fever. HENT: Positive for congestion. Negative for sinus pain and sore throat. Respiratory: Positive for cough. Negative for sputum production. Gastrointestinal: Negative for abdominal pain, nausea and vomiting. Genitourinary: Positive for dysuria, frequency and hematuria. Negative for flank pain and urgency. Musculoskeletal: Negative for back pain. Neurological: Negative for headaches. BP 118/62 Pulse 90 Temp 37 C (98.6 F) Resp 16 Wt (!) 139.3 kg (307 lb) SpO2 97% BMI 47.07 kg/m PAST MEDICAL HISTORY Diagnosis Date Allergic rhinitis, cause unspecified Attention deficit disorder with hyperactivity(314.01) has IEP at school Chlamydia infection 01/24/2022 [facility] ED Headache NEGATIVE HISTORY OF 08/06/2011 Normal Color Vision PAST SURGICAL HISTORY Procedure Laterality Date CIRCUMCISION W/CLAMP/OTH DEV W/BLOCK 1998 PAST SURGICAL HISTORY OF T&A ALLERGIES Environmental [Other] and Pollen Extracts MEDICATIONS fluticasone (FLONASE) 50 mcg/actuation nasal spray Use 2 Sprays in each nostril once daily. Rinse mouth after use. Atomoxetine (STRATTERA) 80 mg capsule Take 1 capsule by mouth once daily. cephALEXin (KEFLEX) 500 mg capsule Take 1 capsule by mouth three times daily for 7 days. amoxicillin-clavulanic acid (AUGMENTIN) 875-125 mg per tablet Take by mouth. (Patient not taking: Reported on 03/11/2022) FAMILY HISTORY Problem Relation Age of Onset Heart Maternal Grandmother Diabetes Maternal Grandmother Heart Maternal Grandfather Diabetes Maternal Grandfather other (NEUTROPENIA) Brother Diabetes Maternal Uncle Emphysema Maternal Aunt Social History Tobacco Use Smoking status: Former Types: Cigarettes Quit date: 02/14/2021 Years since quittin.0 Smokeless tobacco: Never Tobacco comments: Mom outside Substance Use Topics Alcohol use: No Drug use: No Objective Physical Exam Vitals and nursing note reviewed. Constitutional: Appearance: Normal appearance. HENT: Head: Normocephalic. Right Ear: Tympanic membrane and ear canal normal. Left Ear: Tympanic membrane and ear canal normal. Nose: Congestion present. Mouth/Throat: Pharynx: No oropharyngeal exudate or posterior oropharyngeal erythema. Eyes: Conjunctiva/sclera: Conjunctivae normal. Cardiovascular: Rate and Rhythm: Normal rate and regular rhythm. Pulmonary: Effort: Pulmonary effort is normal. Breath sounds: Normal breath sounds. Abdominal: Palpations: Abdomen is soft. Tenderness: There is no right CVA tenderness or left CVA tenderness. Lymphadenopathy: Cervical: No cervical adenopathy. Skin: General: Skin is warm and dry. Neurological: Mental Status: He is alert. ASSESSMENT/PLAN: 1. Recurrent UTI (urinary tract infection) - ICD9: 599.0, ICD10: N39.0 (primary diagnosis) recurrent - Send urine for culture - Begin treatment with cephalexin for 7 days - Patient education for prevention given - CONSULT TO UROLOGY - CEPHALEXIN 500 MG CAPSULE - URINE CULTURE 2. Dysuria - ICD9: 788.1, ICD10: R30.0 recurrent - Patient education for prevention given - GC/CHLAMYDIA AMPLIF, URINE - T VAGINALIS AMPLIFICATION - CONSULT TO UROLOGY 3. Suspected COVID-19 virus infection - ICD9: V01.79, ICD10: Z20.822 - COVID WITH FLUA+B, ROUTINE Lory Espino APRN Student TEACHING PROVIDER (Physician/PA/GRANITE COUNTERTOP INSTALLER) NOTE OF PERSONAL INVOLVEMENT IN CARE: I have personally seen and examined the patient and performed the medical decision-making components. I have reviewed the Advanced Practice Registered Nurse (GRANITE COUNTERTOP INSTALLER) Student's documentation and verified the findings in the note as written. Any additions or changes are noted in bold/italics. Signature: Lisa Valderrama Date: 03/11/2022 Time: 6:47 PM documented in this encounter [facility] 03-11-2022 Instructions Lory Espino - 03/11/2022 6:33 PM EDT ASSESSMENT/PLAN: 1. Recurrent UTI (urinary tract infection) - ICD9: 599.0, ICD10: N39.0 (primary diagnosis) recurrent - Send urine for culture - Begin treatment with cephalexin for 7 days - Patient education for prevention given - CONSULT TO UROLOGY - CEPHALEXIN 500 MG CAPSULE - URINE CULTURE 2. Dysuria - ICD9: 788.1, ICD10: R30.0 recurrent - Patient education for prevention given - GC/CHLAMYDIA AMPLIF, URINE - T VAGINALIS AMPLIFICATION - CONSULT TO UROLOGY 3. Suspected COVID-19 virus infection - ICD9: V01.79, ICD10: Z20.822 - COVID WITH FLUA+B, ROUTINE Lory Espino APRN Student documented in this encounter [facility] Suspected COVID-19 virus infection- Primary [facility] Diagnosis Ventral hernia without obstruction or gangrene- Primary Ventral hernia, unspecified, without mention of obstruction or gangrene Obesity, Class III, BMI 40-49.9 (morbid obesity) (HCC) Morbid obesity Attention deficit disorder (ADD) without hyperactivity High serum low density lipoprotein (LDL) cholesterol Acanthosis nigricans Acquired acanthosis nigricans Screening for diabetes mellitus Dysmetabolic syndrome Dysmetabolic Syndrome X Hyperlipidemia, mixed Mixed hyperlipidemia FH: diabetes mellitus Family history of diabetes mellitus [facility] Diagnosis 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 Obesity, Class III, BMI 40-49.9 (morbid obesity) (HCC) Morbid obesity Acanthosis nigricans Acquired acanthosis nigricans Hyperlipidemia, mixed Mixed hyperlipidemia FH: diabetes mellitus Family history of diabetes mellitus Ventral hernia without obstruction or gangrene Ventral hernia, unspecified, without mention of obstruction or gangrene documented in this encounter [facility] Reason for Referral Specialty Diagnoses / Procedures Referred By Libertad ventura Referred To Contact Urology Diagnoses Recurrent UTI (urinary tract infection) Dysuria Procedures CONSULT TO UROLOGY OFFICE/OUTPATIENT NEW HIGH MDM 60-74 MINUTES Lisa Valderrama APRN.CNP [address] [place] [address] Referral ID Status Reason Start Date Expiration Date Visits Requested Visits Authorized [id number] Authorized PCP Requested Referral 2 03/11/2023 1 1 Specialty Diagnoses / Procedures Referred By Contac t Referred To Contact Diagnoses Obesity, Class III, BMI 40-49.9 (morbid obesity) (HCC) Procedures CONSULT [facility] OFFICE/OUTPATIENT NEW HIGH MDM 60-74 MINUTES Dinh De La Torre PA-C [address] [place] [address] Referral ID Status Reason Start Date Expiration Date Visits Requested Visits Authorized [id number] Authorized PCP Requested Referral 09/04/2022 09/04/2023 1 1 Health Concerns Infection Onset Date Last Indicated Resolved Time COVID-19 Rule-Out 07/27/2022 07/27/2022 Summary Purpose Family History No Family History Records Found Advance Directives No Advanced Directives Records Found Additional Source Comments Source Comments (unrecognize d section and content) In the event this informatio n is protected by the Federal Confidentiality of Alcohol and Drug Abuse Patient Records regulations: The Federal rules restrict any use of the information to criminally investigate or prosecute any alcohol or drug abuse patient.[facility] event this information is protected by the Federal Confidentiality of Alcohol and Drug Abuse Patient Records regulations: The Federal rules restrict any use of the information to criminally investigate or prosecute any alcohol or drug abuse patient.[facility] the event this information is protected by the Federal Confidentiality of Alcohol and Drug Abuse Patient Records regulations: The Federal rules restrict any use of the information to criminally investigate or prosecute any alcohol or drug abuse patient.[facility] the event this information is protected by the Federal Confidentiality of Alcohol and Drug Abuse Patient Records regulations: The Federal rules restrict any use of the information to criminally investigate or prosecute any alcohol or drug abuse patient.[facility] the event this information is protected by the Federal Confidentiality of Alcohol and Drug Abuse Patient Records regulations: The Federal rules restrict any use of the information to criminally investigate or prosecute any alcohol or drug abuse patient.[facility] the event this information is protected by the Federal Confidentiality of Alcohol and Drug Abuse Patient Records regulations: The Federal rules restrict any use of the information to criminally investigate or prosecute any alcohol or drug abuse patient.[facility] the event this information is protected by the Federal Confidentiality of Alcohol and Drug Abuse Patient Records regulations: The Federal rules restrict any use of the information to criminally investigate or prosecute any alcohol or drug abuse patient.[facility] the event this information is protected by the Federal Confidentiality of Alcohol and Drug Abuse Patient Records regulations: The Federal rules restrict any use of the information to criminally investigate or prosecute any alcohol or drug abuse patient.[facility] the event this information is protected by the Federal Confidentiality of Alcohol and Drug Abuse Patient Records regulations: The Federal rules restrict any use of the information to criminally investigate or prosecute any alcohol or drug abuse patient.[facility] the event this information is protected by the Federal Confidentiality of Alcohol and Drug Abuse Patient Records regulations: The Federal rules restrict any use of the information to criminally investigate or prosecute any alcohol or drug abuse patient.[facility] the event this information is protected by the Federal Confidentiality of Alcohol and Drug Abuse Patient Records regulations: The Federal rules restrict any use of the information to criminally investigate or prosecute any alcohol or drug abuse patient.[facility] Reason for Visit (unrecogniz ed section and content) Reason Comments Results Reason Comments Cough Chest congestion, wh eezing x 3 days Reason Comments Weight Problem Referral to diaticia n Reason Comments Patient Update Reason Comments Forms Reason Comments 6 Month Exam Reason Comments Patient Update Patient Request Care Teams (unrecognized sec tion and content) Photoengraving Supervisor Relationship Specialty Start Date End Date Dinh De La Torre PA-C [address] [place] [address] PCP - General Family Medicine 09/19/18 Photoengraving Supervisor Relationship Specialty Start Date End Date Dinh De La Torre PA-C [address] [place] [address] PCP - General Family Medicine 09/19/18 Photoengraving Supervisor Relationship Specialty Start Date End Date Dinh De La Torre PA-C [address] [place] [address] PCP - General Family Medicine 09/19/18 Photoengraving Supervisor Relationship Specialty Start Date End Date Dinh De La Torre PA-C [address] [place] [address] PCP - General Family Medicine 09/19/18 Photoengraving Supervisor Relationship Specialty Start Date End Date Dinh De La Torre PA-C [address] [facility], [place] [address] PCP - [facility] 09/19/18 Photoengraving Supervisor Relationship Specialty Start Date End Date Dinh De La Torre PA-C [address] [facility], [place] [address] PCP - [facility] 09/19/18 Photoengraving Supervisor Relationship Specialty Start Date End Date Dinh De La Torre PA-C [address] [facility], [place] [id number] PCP - [facility] 09/19/18 Photoengraving Supervisor Relationship Specialty Start Date End Date Dinh De La Torre PA-C [address] [facility], [place] [id number] PCP - [facility] 09/19/18 Photoengraving Supervisor Relationship Specialty Start Date End Date Dinh De La Torre PA-C [address] [facility], [place] [address] PCP - [facility] 09/19/18 (unrecognized sect ion and content) No Status Records Found INFORMATION SOURCE (unrecogn ized section and content) FOR RECORDS PERTAINING TO PATIENTS WHO ARE OR HAVE BEEN ENROLLED IN A CHEMICAL DEPENDENCY/SUBSTANCEABUSE PROGRAM, SOME INFORMATION MAY BE OMITTED. This clinical summary was aggregated from multiple sources. Caution should be exercised in using it in the provision of clinical care. This summary normalizes information from multiple sources, and as a consequence, information in this document may materially change the coding, format and clinical context of patient data. In addition, data may be omitted in some cases. CLINICAL DECISIONS SHOULD BE BASED ON THE PRIMARY CLINICAL RECORDS. [employer] [facility]. provides no warranty or guarantee of the accuracy or completeness of information in this document.
--- NOTE | 2023-05-24 02:16 | EDS_ITS ---
HPI History of Present Illness Chief Complaint: Abd Pain Informant: patient Narrative Narrative: Patient is a 23-year-old male who states that he was told he had a hernia a few years ago by a surgeon but that they would not operate on him secondary to his obesity. He states in the last few days he has noticed a lump around his bellybutton. He states he has concern that it is another hernia. He states he notices some pain when he touches it and has concerned that it could be stuck secondary to this he comes in for evaluation. He denies any fevers chills nausea vomiting diarrhea dysuria or constipation. PFSH [facility] Medical History ADHD Intellectual disability Non-smoker Home Medications Strattera 05/09/22 [History Last Taken Unknown] hydroxyzine HCl 10 mg tablet 10 mg PO DAILY 05/24/23 [History Last Taken Unknown] Allergy/AdvReac Type Severity Reaction Status Date / Time pollen extracts Allergy Other Verified 05/24/23 01:28 Surgical History History of tonsillectomy and adenoidectomy Social History Smoking Status: Never smoker substance use type: does not use ROS ROS ED Constitutional Constitutional ED: Denies chills or fever(s) ENT ENT ED: Denies sore throat Cardiovascular Cardiovascular: Denies chest pain Respiratory/Chest Respiratory/Chest: Denies cough or dyspnea Gastrointestinal Gastrointestinal: Reports abdominal pain; Denies diarrhea, nausea or vomiting Genitourinary Genitourinary ED: Denies dysuria Musculoskeletal Musculoskeletal: Denies myalgias Integumentary Denies rash Neurologic Neurologic: Denies headache(s) Hematologic/Lymphatic Hematologic/Lymphatic: Denies easy bleeding or easy bruising EXAM Physical Exam Const Vital Signs: 05/24/23 01:25 05/24/23 02:23 Temperature 97.8 F Temperature Source Temporal Pulse Rate 97 87 Respiratory Rate 20 H 16 Blood Pressure 167/107 H 150/81 H Blood Pressure Mean 127 104 Pulse Ox 99 96 Oxygen Delivery Method Room Air Positive well nourished, well developed and obese General Appearance ED: well developed Nutritional Appearance: obese HEENT HEENT Narrative: Normocephalic atraumatic Eyes PERRL and EOMs intact bilaterally General Eye ED: Negative for scleral icterus Neck supple Resp normal respiratory effort and clear to auscultation bilaterally Cardio regular rate and regular rhythm Rate: other Other Details: No murmurs rubs or gallops Radial and carotid pulses are equal and symmetric GI non-distended GI Narrative: Abdomen is obese soft and nondistended with normal active bowel sounds. Patient has a small umbilical hernia that is approximate 1 x 2 cm in size. There is small amount of intestine protruding through that is reducible in nature. No overlying soft tissue changes to suggest infectious process such as cellulitis or abscess. Auscultation: normoactive bowel sounds Palpation: soft Extremity normal to inspection Neuro oriented x3, CN's II-XII intact bilaterally and no sensory deficits noted Sensorium / Orientation: alert Motor Exam: strength 5/5 throughout Psych mental status grossly normal Skin no rashes or lesions noted MDM MDM MDM Narrative Medical decision making narrative: Patient presented to the ER hypertensive but otherwise afebrile. Exam shows a umbilical hernia that is reducible in nature. As there is no overlying soft tissue changes to suggest cellulitis or abscess and has a hernia is reducible and not incarcerated or strangulated and as he has not been having bouts of vomiting or constipation my concern for obstruction from this is low as well. Therefore do not feel there is need for workup. Patient be given referral to general surgery to discuss potential treatment options regarding his umbilical hernia but at this time as it does not appear infected or incarcerated or strangulated there is no need for further workup and is otherwise safe for discharge. Discharge Plan Triage Chief Complaint: Abd Pain ED Provider: James Piña Dx/Rx/DC Orders Clinical Impression: Umbilical hernia, Morbid obesity with BMI of 45.0-49.9, adult Instructions: How a Hernia Develops, ED Hernia (Adult) Prescriptions: No Action Strattera hydroxyzine HCl 10 mg tablet 10 mg PO DAILY Patient Comments: Take 1 tablet by mouth three times a day as needed for anxiety. Primary Care Provider: Dinh De La Torre Referrals: Divya Perales MD [Med Staff - Active Staff] - Dinh De La Torre PA [Primary Care Provider] - Activity Restrictions/Additional Instructions: You have an umbilical or ventral hernia which is a small tear in the muscle at the bellybutton. Please follow-up with general surgery to discuss further testing and or need for surgical fixation and return to the ER should you have any further concerns Disposition Disposition: Home, Self Care Discharge Date/Time: 05/24/23 02:24
[2023-05-24 02:23] VITALS: BP 150/81; PULSE 87; RESP 16; O2SAT 96
== END 2023-05-24 02:24 | disposition home or self-care (01) ==
PROVIDERS: Emergency Provider Emergency Medicine; PCP Physician Assistant; Visit Provider Emergency Medicine
DX: K42.9 Umbilical hernia without obstruction or gangrene (principal); E66.01 Morbid (severe) obesity due to excess calories; Z68.42 Body mass index [BMI] 45.0-49.9, adult
CPT/HCPCS: 99282

== ENCOUNTER 2023-05-24 11:43 | Emergency (ER) | payer MEDICARE, MEDICAID, SELFPAY ==
[2023-05-24 11:44] VITALS: BP 163/96; PULSE 84; RESP 18; TEMP 36.2; O2SAT 100; BMI 48.7
--- NOTE | 2023-05-24 12:06 | ED.VIS.GI ---
HPI HPI - GI History of Present Illness Chief Complaint: Abd Pain Detail of Chief Complaint: Tory-umbilical abdominal discomfort. Informant: patient Abdominal Pain/Flank Pain Onset: Today Context: Gradual Onset Timing: Intermittent Current Severity: Mild Maximum Severity: Mild Worsened by: Movement Relieved by: Remaining Still Nausea/Vomiting/Emesis GI Symptom: Negative for Nausea or Vomiting Diarrhea/Melena/Hematochezia GI Symptom: Negative for Diarrhea, Melena or Hematochezia Associated Symptoms Associated Symptoms: Negative for Dysuria, Frequency, Hematuria or Urgency Narrative Narrative: 23-year-old male history of ADHD and anxiety. Diagnosed with umbilical hernia. Has an appointment to see Dr. Nelida Perales. Seen in the emergency department last night. Says he just has recurrent pain. No vomiting. No fever. No nausea. Moving his bowels. Urinating normally. Prior similar symptoms: Yes Recent Illness/Hospitalization: No PFSH PFSH Medical History ADHD Intellectual disability Non-smoker Home Medications Strattera 05/09/22 [History Last Taken Unknown] hydroxyzine HCl 10 mg tablet 10 mg PO DAILY 05/24/23 [History Last Taken Unknown] Allergy/AdvReac Type Severity Reaction Status Date / Time pollen extracts Allergy Other Verified 05/24/23 11:44 Surgical History History of tonsillectomy and adenoidectomy Social History Smoking Status: Never smoker substance use type: does not use ROS ROS ED ROS Narrative Abdominal pain. Review of Systems ROS Unobtainable: Denies due to encephalopathy Constitutional Constitutional ED: Denies chills or fever(s) ENT ENT ED: Denies ear pain Cardiovascular Cardiovascular: Denies chest pain Respiratory/Chest Respiratory/Chest: Denies cough or dyspnea Gastrointestinal Gastrointestinal: Reports abdominal pain; Denies constipation, diarrhea, melena, nausea or vomiting Genitourinary Genitourinary ED: Denies dysuria or hematuria Musculoskeletal Musculoskeletal: Denies arthralgias Integumentary Denies abscess Neurologic Neurologic: Denies headache(s) Psychiatric Psychiatric: Denies anxiety or depression Endocrine Endocrinology: Denies polydipsia Hematologic/Lymphatic Hematologic/Lymphatic: Denies easy bleeding, easy bruising or lymphadenopathy Allergic/Immunologic Allergic/Immunologic ED: Denies mouth swelling, tongue swelling or urticaria EXAM Physical Exam Narrative Exam Narrative: Appearing 23-year-old male. Vital signs stable afebrile. H EENT exam unremarkable. Moist extremities. Lungs clear to auscultation. Heart regular rhythm rate about 80 no murmur. Abdomen soft nondistended normal bowel sounds no peritoneal signs. He has very mild periumbilical tenderness. Currently there is no strangulated or incarcerated hernia. I suspect he has a periumbilical hernia but it is currently not palpated on the abdominal surface. He has no right upper or right lower quadrant tenderness. No distention of his abdomen. No obstruction. Abdomen soft with normal bowel sounds. Moving all 4 extremities. Nontender no edema. Neurologically is awake and alert with no focal motor deficits. Const Vital Signs: 05/24/23 11:44 Temperature 97.1 F L Temperature Source Temporal Pulse Rate 84 Respiratory Rate 18 Blood Pressure 163/96 H Blood Pressure Mean 118 Pulse Ox 100 Oxygen Delivery Method Room Air Positive well nourished, well developed and obese; Negative for cachectic, contractures or unkempt General Appearance ED: well developed and NAD; Negative for unkempt, cachectic, contractures or pallor Nutritional Appearance: obese; Negative for cachectic HEENT Reports moist mucous membranes; Denies dry mucous membranes normocephalic and atraumatic; Negative for trauma or tenderness Mouth ED: No dry mucous membranes Mouth: No dry mucous membranes Eyes PERRL and EOMs intact bilaterally General Eye ED: Negative for pale conjunctiva or scleral icterus Neck no lymphadenopathy, supple and no JVD General: Negative for tenderness Carotids: Negative for other Lymph Lymphatic: Negative for other Resp normal respiratory effort and clear to auscultation bilaterally Effort and Inspection: Negative for respiratory distress Auscultation: Negative for rales, rhonchi or wheezes Cardio regular rate, regular rhythm, S1 normal heart sound, S2 normal heart sound and no murmurs Rate: Negative for bradycardia or tachycardic Rhythm: Negative for abnormal rhythm GI non-distended and no masses; Negative for non-tender Inspection: abdominal distention Palpation: soft, tender and hernia; Negative for guarding, rigid, hepatomegaly, splenomegaly, mass, pulsatile mass or rebound tenderness present Back/Spine no CVA tenderness Cervical Spine: Negative for cervical spine tenderness Thoracic Spine / Upper Back: Negative for thoracic spinal tenderness Lumbar Spine / Lower Back: Negative for lumbar spinal tenderness Extremity full ROM General Extremety ED: Negative for edema or tenderness General Extremity: Negative for edema Neuro CN's II-XII intact bilaterally and moves all extremities Sensorium / Orientation: alert, oriented to person, oriented to place and oriented to time; Negative for orientation impaired, confused, lethargic or stuporous Motor Exam: strength 5/5 throughout Psych mental status grossly normal and thought process normal Appearance: Negative for unkempt Attitude: No agitated Mood & Affect: Negative for depressed, anxious or tearful Skin no wounds General Skin Exam: Negative for jaundice or pallor Lesions: no lesions Rashes: no rashes Trauma: Negative for abrasion Nails: Negative for discolored MDM MDM MDM Narrative Medical decision making narrative: 23-year-old male with periumbilical hernia. Currently is not strangulated or incarcerated. Outpatient follow-up with general surgery. I explained to him symptoms he would need to return. Discharge Plan Triage Chief Complaint: Abd Pain ED Provider: Dc West Dx/Rx/DC Orders Clinical Impression: Umbilical hernia Instructions: ED Hernia (Adult) Prescriptions: No Action Strattera hydroxyzine HCl 10 mg tablet 10 mg PO DAILY Patient Comments: Take 1 tablet by mouth three times a day as needed for anxiety. Primary Care Provider: Dinh De La Torre Referrals: Divya Perales MD [Med Staff - Active Staff] - As soon as possible Dinh De La Torre PA [Primary Care Provider] - Activity Restrictions/Additional Instructions: You have an abdominal wall hernia. Motrin and Tylenol for pain. Call and follow-up with the general surgeon Dr. Stokes bother him to be seen as he is engaged in for an appointment. You and her can discuss about getting this repaired. If it has increasing pain and is out in stock you need to come back in to be evaluated. Or if you are having intractable vomiting. Disposition Disposition: Home, Self Care
== END 2023-05-24 12:23 | disposition home or self-care (01) ==
LOC: ED 12:08
PROVIDERS: Emergency Provider Emergency Medicine; PCP Physician Assistant; Visit Provider Emergency Medicine
DX: K42.9 Umbilical hernia without obstruction or gangrene (principal); E66.01 Morbid (severe) obesity due to excess calories; Z68.42 Body mass index [BMI] 45.0-49.9, adult; F41.9 Anxiety disorder, unspecified; Z79.899 Other long term (current) drug therapy
CPT/HCPCS: 99282

== ENCOUNTER 2023-06-09 22:33 | Emergency (ER) | payer MEDICARE, MEDICAID, SELFPAY ==
[2023-06-09 22:34] VITALS: BP 140/95; PULSE 112; RESP 18; TEMP 36.9; O2SAT 100; BMI 46.2
--- NOTE | 2023-06-09 22:48 | ED.VIS.GI ---
HPI HPI - GI History of Present Illness Chief Complaint: Abd Pain Informant: patient Narrative Narrative: Patient states he has been having periumbilical abdominal pain for the past 2-3 weeks, he was seen by Dr. Perales and diagnosed with a hernia there by ultrasound that was not reducible and was supposed to have surgery, but insurance preapproval did not come through so the surgery was postponed until 06/28 according to the patient. He states in the past 4 days he has had no bowel movement but feels like he needs to despite taking some type of oral laxative that he states is a capsule not a powder, but he states he is passing flatus. No nausea or vomiting. The abdominal pain has been worse in this period of time. No fevers or chills. PFSH PFSH Medical History ADHD Anxiety Migraine headache Non-smoker Wears glasses Home Medications Strattera 80 mg PO DAILY 05/09/22 [History Last Taken Unknown] hydroxyzine HCl 10 mg tablet 10 mg PO DAILY 05/24/23 [History Last Taken Unknown] phentermine 37.5 mg tablet 37.5 mg PO .qdaily 06/09/23 [History Last Taken Unknown] Allergy/AdvReac Type Severity Reaction Status Date / Time pollen extracts Allergy Other Verified 06/09/23 22:36 Surgical History History of tonsillectomy and adenoidectomy Social History Smoking Status: Never smoker substance use type: does not use ROS ROS ED Constitutional Constitutional ED: Denies chills or fever(s) Eyes Eyes: Denies change in vision or diplopia ENT ENT ED: Denies rhinorrhea or sore throat Cardiovascular Cardiovascular: Denies chest pain or palpitations Respiratory/Chest Respiratory/Chest: Denies cough or dyspnea Gastrointestinal Gastrointestinal: Reports as per HPI, abdominal pain and constipation; Denies diarrhea, melena, nausea or vomiting Genitourinary Genitourinary ED: Denies dysuria or hematuria Musculoskeletal Musculoskeletal: Denies back pain or neck pain Integumentary Denies abscess or rash Neurologic Neurologic: Denies headache(s), paresthesias or weakness Psychiatric Psychiatric: Denies anxiety or suicidal thoughts EXAM Physical Exam Const Vital Signs: 06/09/23 22:34 Temperature 98.4 F Temperature Source Temporal Pulse Rate 112 H Respiratory Rate 18 Blood Pressure 140/95 H Blood Pressure Mean 110 Pulse Ox 100 Oxygen Delivery Method Room Air Positive well nourished, well developed and obese General Appearance ED: well developed and NAD Nutritional Appearance: obese HEENT Reports moist mucous membranes normocephalic and atraumatic Eyes PERRL and EOMs intact bilaterally Neck full ROM and supple Resp normal respiratory effort and clear to auscultation bilaterally Cardio regular rate, regular rhythm and no murmurs GI non-distended GI Narrative: Diffuse periumbilical tenderness. No guarding or rebound. Hypoactive bowel sounds. Abdominal obesity limits exam, do not feel definitive hernia in umbilicus. Auscultation: hypoactive bowel sounds Palpation: soft Back/Spine no CVA tenderness General Back: other FROM Extremity normal to inspection General Extremety ED: Negative for edema, pulses abnormal or tenderness General Extremity: Negative for edema or pulses abnormal Neuro oriented x3, CN's II-XII intact bilaterally, no sensory deficits noted and gait normal Sensorium / Orientation: awake and alert Motor Exam: strength 5/5 throughout Skin no rashes or lesions noted and no wounds MDM MDM MDM Narrative Medical decision making narrative: CT with oral contrast and labs were obtained to evaluate for the possibility of an incarcerated hernia and/or bowel obstruction. This was obtained, his labs are noted with mild hypokalemia but otherwise unremarkable, and his CT images are reviewed as well as the report which I agree with, showing no signs of incarcerated bowel, just a fat-containing umbilical hernia with no signs of a bowel obstruction. This is all consistent with constipation. I offered him a disimpaction as well as an enema and he declines both of those and prefers to go home and try oral [id number]-pop-[id number] laxative techniques such as MiraLAX, magnesium citrate which we advised. Lab Data Attestation: I reviewed the patient's lab results. Labs: Laboratory Results - last 24 hr 06/09/23 22:44 WBC 10.6 RBC 5.79 Hgb 15.2 Hct 47.8 MCV 82.6 MCH 26.3 L MCHC 31.8 L RDW Std Deviation 38.5 RDW Coeff of Yovani 12.9 Plt Count 349 MPV 9.9 Immature Gran % (Auto) 0.400 Neut % (Auto) 58.8 Lymph % (Auto) 31.5 [place] % (Auto) 8.0 Eos % (Auto) 0.8 Baso % (Auto) 0.5 Absolute Neuts (auto) 6.2 Absolute Lymphs (auto) 3.33 Nucleated RBC % 0 Sodium 138 Potassium 3.3 L Chloride 108 H Carbon Dioxide 28.0 Anion Gap 2 L BUN 17 Creatinine 0.96 Estim Creat Clear Calc 166.50 Est GFR (MDRD) Af Amer 124 Est GFR (MDRD) Non-Af 102 BUN/Creatinine Ratio 17.8 Glucose 99 Calcium 9.4 Radiography Diagnostic Testing: Clinical Impression(s) from Imaging Studies Abdomen/Pelvis CT 06/10/23 22:47 IMPRESSION: Fat-containing umbilical hernia appears larger compared to the prior but is otherwise unremarkable. No evidence of complication. No bowel obstruction. Electronically Signed: Zaynab Miranda MD at 1:01 EST Reading Location ID and State: [address] [place] [address] Tel , Service support , Discharge Plan Triage Chief Complaint: Abd Pain ED Provider: Darian Hay Dx/Rx/DC Orders Clinical Impression: Umbilical hernia, Constipation Instructions: ED Constipation (Adult) Prescriptions: No Action Strattera 80 mg PO DAILY hydroxyzine HCl 10 mg tablet 10 mg PO DAILY Patient Comments: Take 1 tablet by mouth three times a day as needed for anxiety. phentermine 37.5 mg tablet 37.5 mg PO .qdaily Patient Comments: Take 1 tablet by mouth once daily for 30 days. Primary Care Provider: Dinh De La Torre Referrals: Divya Perales MD [Med Staff - Active Staff] - Keep Lan appointment Dinh De La Torre PA [Primary Care Provider] - Activity Restrictions/Additional Instructions: May try MiraLAX and/or magnesium citrate to try to treat constipation relatively quickly within 1-2 days. If you use magnesium citrate, drink half of the bottle and jose de jesus with plenty of water. If it does not result in a bowel movement, repeat in 24 hours. If you use MiraLAX, the 1 capful daily instructions on the bottle are for stool softening, but he uses a laxative, try half of a cup-1 cup dissolved and plenty of water and jose de jesus with plenty of water. Disposition Disposition: Home, Self Care
[2023-06-09] MEDS: Ketorolac 30 MG/ML Syringe IV (22:54)
[2023-06-09 22:55] LABS: Absolute Lymphocyte Count 3.33 X10^3/uL (0.83-4.51); Absolute Neutrophil Count 6.2 X10^3/uL (2.0-7.7); Basophil# 0.05 X10^3/uL; Basophil% 0.5 % (0-1); Eosinophil# 0.08 X10^3/uL; Eosinophils% 0.8 % (0-5); Hematocrit 47.8 % (40-54); Hemoglobin 15.2 g/dL (13.0-16.5); Lymphocyte # 3.33 X10^3/ul (0.83-4.51); Lymphocyte % 31.5 % (19-41); Mean Corp Hgb Conc 31.8 g/dL (32-36); Mean Corpuscular Hgb 26.3 pg (27.0-32.0); Mean Corpuscular Volume 82.6 fL (80-94); Mean Platelet Vol. 9.9 fl (6.2-12.0); Monocyte# 0.85 X10^3/uL; NRBC Flagged by Analyzer 0 % (0-5); Neutrophil # 6.21 X10^3/uL (2.7-7.7); Neutrophil % 58.8 % (47-70); Platelet Count 349 K/mm3 (150-450); RBC Distribution Width CV 12.9 % (11.6-14.6); RBC Distribution Width SD 38.5 fl (35.1-43.9); Red Blood Count 5.79 M/mm3 (4.6-6.2); White Blood Count 10.6 K/mm3 (4.4-11.0)
[2023-06-09] MEDS: Dicyclomine 10 MG Capsule 20 MG PO (22:55)
[2023-06-09] MEDS: 0.9% Normal Saline (1000mL) 1,000 ML 125 ML IV (22:56)
[2023-06-09 23:09] LABS: Anion Gap 2 (5-15); BUN 17 mg/dL (7-18); BUN/Creat Ratio 17.8 RATIO (10-20); Calcium,Total 9.4 mg/dL (8.5-10.1); Chloride 108 mmol/L (98-107); Creatinine, Serum 0.96 mg/dL (0.70-1.30); EST Glomerular Filtration Rate 102 mL/min (>60); Est Glom Filt Rate - Afr Amer 124 mL/min (>60); Glucose 99 mg/dL (74-106); Potassium 3.3 mmol/L (3.5-5.1); Sodium Level 138 mmol/L (136-145)
--- OUTSIDE RECORDS SUMMARY | 2023-06-09 23:25 | XMS RPT_ITS | CCD ---
Author Name Unknown Address [address] [place] [id number] Organization [facility] Care Team Providers Care Squirrel Man Name Role Phone Dinh De La Torre [...] EXTRACTS] Drug Allergy 2 Other: See Comments [facility] (11 sources) Environmental [Other] Propensity to adverse reactions 6 Cough [facility] Work Phone: (1 source) OTHER; Translations: [OTHER] Propensity to adverse reactions (disorder) 6 [facility] Repository Medications Current Medications Medication Drug [...] [Obesity, Class III, BMI 40-49.9 (morbid obesity) ([facility])] Onset: 03-16-2023 Chronic Other screening for suspected [...] NA De La Torre PA-C Work Phone: [facility] 03-16-2023 11:20-0400 Diastolic blood pressure 82 mm[Hg] NA De La Torre PA-C Work Phone: [facility] 03-16-2023 11:20-0400 Heart rate 102 /min NA De La Torre PA-C Work Phone: [facility] 03-16-2023 11:20-0400 Respiratory rate 16 /min NA De La Torre PA-C Work Phone: [facility] 03-16-2023 11:20-0400 SaO2% (BldA) [Mass fraction] 99 % NA De La Torre PA-C Work Phone: [facility] 03-16-2023 11:20-0400 Systolic blood pressure 140 mm[Hg] NA De La Torre PA-C Work Phone: [facility] 09-04-2022 12:45-0400 Body weight 142.88 kg NA De La Torre PA-C Work Phone: [facility] 09-04-2022 12:45-0400 Diastolic blood pressure 80 mm[Hg] NA De La Torre PA-C Work Phone: [facility] 09-04-2022 12:45-0400 Heart rate 80 /min NA De La Torre PA-C Work Phone: [facility] 09-04-2022 12:45-0400 Respiratory rate 18 /min NA De La Torre PA-C Work Phone: [facility] 09-04-2022 12:45-0400 SaO2% (BldA) [Mass fraction] 97 % NA De La Torre PA-C Work Phone: [facility] 09-04-2022 12:45-0400 Systolic blood pressure 120 mm[Hg] NA De La Torre PA-C Work Phone: [facility] 07-27-2022 08:59-0400 Body temperature 98.8 [degF] Jw [place] FITNESS AND WELLNESS DIRECTOR.SALES ADMINISTRATION SPECIALIST Work Phone: [facility] 07-27-2022 08:59-0400 Body weight 139.53 kg Jw [facility] FITNESS AND WELLNESS DIRECTOR.SALES ADMINISTRATION SPECIALIST Work Phone: [facility] 07-27-2022 08:59-0400 Diastolic blood pressure 82 mm[Hg] Jw [facility] FITNESS AND WELLNESS DIRECTOR.SALES ADMINISTRATION SPECIALIST Work Phone: [facility] 07-27-2022 08:59-0400 Heart rate 100 /min Jw [place] FITNESS AND WELLNESS DIRECTOR.SALES ADMINISTRATION SPECIALIST Work Phone: [facility] 07-27-2022 08:59-0400 Respiratory rate 21 /min Jw [place] FITNESS AND WELLNESS DIRECTOR.SALES ADMINISTRATION SPECIALIST Work Phone: [facility] 07-27-2022 08:59-0400 SaO2% (BldA) [Mass fraction] 99 % Jw [facility] FITNESS AND WELLNESS DIRECTOR.SALES ADMINISTRATION SPECIALIST Work Phone: [facility] 07-27-2022 08:59-0400 Systolic blood pressure 142 mm[Hg] Jw [facility] FITNESS AND WELLNESS DIRECTOR.SALES ADMINISTRATION SPECIALIST Work Phone: [facility] 03-11-2022 18:02-0400 Body temperature 98.6 [degF] Lisa Valderrama FITNESS AND WELLNESS DIRECTOR.SALES ADMINISTRATION SPECIALIST Work Phone: [facility] 03-11-2022 18:02-0400 Body weight 139.25 kg Lisa Bernardo-Casey FITNESS AND WELLNESS DIRECTOR.SALES ADMINISTRATION SPECIALIST Work Phone: [facility] 03-11-2022 18:02-0400 Diastolic blood pressure 62 mm[Hg] Lisa Praisler-Wood FITNESS AND WELLNESS DIRECTOR.SALES ADMINISTRATION SPECIALIST Work Phone: [facility] 03-11-2022 18:02-0400 Heart rate 90 /min Lisa Praisler-Wood FITNESS AND WELLNESS DIRECTOR.SALES ADMINISTRATION SPECIALIST Work Phone: [facility] 03-11-2022 18:02-0400 Respiratory rate 16 /min Lisa Praisler-Wood FITNESS AND WELLNESS DIRECTOR.SALES ADMINISTRATION SPECIALIST Work Phone: [facility] 03-11-2022 18:02-0400 SaO2% (BldA) [Mass fraction] 97 % Lisa Praisler-Wood FITNESS AND WELLNESS DIRECTOR.SALES ADMINISTRATION SPECIALIST Work Phone: [facility] 03-11-2022 18:02-0400 Systolic blood pressure 118 mm[Hg] Lisa Praisler-Wood FITNESS AND WELLNESS DIRECTOR.SALES ADMINISTRATION SPECIALIST Work Phone: [facility] Encounters Encounter Date Encounter Type Care Provider Facility Start: 06-01-2023 End: 06-01-2023 ambulatory Dinh DE LA TORRE Facility:[facility] Start: 03-24-2023 Telephone encounter Dinh De La Torre PA-C Work Phone: [facility] Procedures Date Procedure Procedure Detail Performing Clinician Start: 03-11-2022 Urnls dip stick/tabl et rgnt auto w/o microscopy [facility] Provider Plan of Treatment Date Care Activity Detail Author Start: 04-12-2031 Urine microalbumin profile [facility] Start: 01-15-2023 Covid-19 Vaccine ( season) Covid-19 Vaccine ( season) [facility] Start: 01-15-2023 Influenza vaccination [facility] Start: 09-04-2022 End: 11-04-2022 Basic metabolic 2000 panel - Serum or Plasma BASIC METABOLIC PNL Lab Routine Screening for diabetes mellitus Dysmetabolic syndrome Expected: 09/04/2022, Expires: 11/04/2022 [facility] Work Phone: Immunizations Immunization Date Immunization Notes Care Provider Fa cility 03-01-2023 influenza, injectabl e, quadrivalent, contains preservative NA Wil MERCADO Work Phone: [facility] 07-15-2021 influenza, injectabl e, quadrivalent, contains preservative Lisa Bernardo-Wood FITNESS AND WELLNESS DIRECTOR.[facility] Work Phone: [facility] 07-15-2021 influenza virus vacc ine, unspecified formulation NA Wil MERCADO Work Phone: [facility] 04-12-2021 tetanus toxoid, redu tea diphtheria toxoid, and acellular pertussis vaccine, adsorbed Lisa Bernardo-Casey FITNESS AND WELLNESS DIRECTOR.[facility] Work Phone: [facility] 03-21-2018 influenza, injectabl e, quadrivalent, contains preservative Lisa Praisler-Wood FITNESS AND WELLNESS DIRECTOR.[facility] Work Phone: [facility] 03-21-2018 influenza, injectabl e, quadrivalent, preservative free Lisa Praisler-Wood FITNESS AND WELLNESS DIRECTOR.[facility] Work Phone: [facility] 12-21-2016 Human Papillomavirus 9-valent vaccine Lisa Praisler-Casey FITNESS AND WELLNESS DIRECTOR.[facility] Work Phone: [facility] 12-17-2015 Human Papillomavirus 9-valent vaccine Lisa Praisler-Wood FITNESS AND WELLNESS DIRECTOR.[facility] Work Phone: [facility] 12-17-2015 meningococcal polysaccharide (groups A, C, Y and W-135) diphtheria toxoid conjugate vaccine (MCV4P) Lisa Valderrama FITNESS AND WELLNESS DIRECTOR.[facility] Work Phone: [facility] 04-17-2015 influenza, injectabl e, quadrivalent, preservative free Lisa Bernardo-Wood FITNESS AND WELLNESS DIRECTOR.SALES ADMINISTRATION SPECIALIST Work Phone: [facility] Work Phone: 03-15-2014 influenza, seasonal, injectable Lisa Praisler-Wood FITNESS AND WELLNESS DIRECTOR.SALES ADMINISTRATION SPECIALIST Work Phone: [facility] Work Phone: 04-01-2013 influenza virus vacc ine, unspecified formulation Lisa Bernardo-Casey FITNESS AND WELLNESS DIRECTOR.SALES ADMINISTRATION SPECIALIST Work Phone: [facility] 08-06-2011 Meningococcal, MCV4, unspecified conjugate formulation(groups A, C, Y and W-135) Lisa Valderrama APRN.[facility] Work Phone: [facility] 08-06-2011 tetanus toxoid, redu tea diphtheria toxoid, and acellular pertussis vaccine, adsorbed Lisa Valderrama FITNESS AND WELLNESS DIRECTOR.[facility] Work Phone: [facility] 03-22-2010 influenza virus vacc ine, unspecified formulation Lisa Valderrama FITNESS AND WELLNESS DIRECTOR.[facility] Work Phone: [facility] Work Phone: 03-07-2009 influenza virus vacc ine, unspecified formulation Lisa Valderrama FITNESS AND WELLNESS DIRECTOR.[facility] Work Phone: [facility] Work Phone: 08-09-2003 diphtheria, tetanus toxoids and acellular pertussis vaccine Lisa Bernardo-Casey FITNESS AND WELLNESS DIRECTOR.[facility] Work Phone: [facility] Work Phone: 08-09-2003 measles, mumps and rubella virus vaccine Lisa Bernardo-Caesy FITNESS AND WELLNESS DIRECTOR.[facility] Work Phone: [facility] Work Phone: 08-09-2003 poliovirus vaccine, inactivated Lisa Valderrama FITNESS AND WELLNESS DIRECTOR.[facility] Work Phone: [facility] Work Phone: 04-03-2003 influenza virus vacc ine, unspecified formulation Lisa Valderrama FITNESS AND WELLNESS DIRECTOR.[facility] Work Phone: [facility] Work Phone: 03-05-2003 influenza virus vacc ine, unspecified formulation Lisa Bernardo-Casey FITNESS AND WELLNESS DIRECTOR.[facility] Work Phone: [facility] Work Phone: 05-24-2000 diphtheria, tetanus toxoids and acellular pertussis vaccine Lisa Bernardo-Casey FITNESS AND WELLNESS DIRECTOR.[facility] Work Phone: [facility] Work Phone: 05-24-2000 haemophilus influenz ae type b vaccine, HbOC conjugate Lisa Praisler-Wood FITNESS AND WELLNESS DIRECTOR.SALES ADMINISTRATION SPECIALIST Work Phone: [facility] Work Phone: 05-24-2000 hepatitis B vaccine, pediatric or pediatric/adolescent dosage Lisa Praisler-Wood FITNESS AND WELLNESS DIRECTOR.SALES ADMINISTRATION SPECIALIST Work Phone: [facility] Work Phone: 03-10-2000 measles, mumps and rubella virus vaccine Lisa Praisler-Wood FITNESS AND WELLNESS DIRECTOR.SALES ADMINISTRATION SPECIALIST Work Phone: [facility] Work Phone: 03-10-2000 poliovirus vaccine, inactivated Lisa Praisler-Wood FITNESS AND WELLNESS DIRECTOR.[facility] Work Phone: [facility] Work Phone: 03-10-2000 varicella virus vaccine Marge y Praisler-Wood FITNESS AND WELLNESS DIRECTOR.[facility] Work Phone: [facility] Work Phone: 02-23-2000 measles, mumps and rubella virus vaccine Lisa Praisler-Wood FITNESS AND WELLNESS DIRECTOR.[facility] Work Phone: [facility] 02-23-2000 poliovirus vaccine, inactivated Lisa Praisler-Wood FITNESS AND WELLNESS DIRECTOR.[facility] Work Phone: [facility] 02-23-2000 varicella virus vaccine Marge y Praisler-Wood FITNESS AND WELLNESS DIRECTOR.[facility] Work Phone: [facility] 1999 hepatitis B vaccine, pediatric or pediatric/adolescent dosage Lisa Praisler-Wood FITNESS AND WELLNESS DIRECTOR.SALES ADMINISTRATION SPECIALIST Work Phone: [facility] Work Phone: 1999 diphtheria, tetanus toxoids and acellular pertussis vaccine Lisa Praisler-Wood FITNESS AND WELLNESS DIRECTOR.SALES ADMINISTRATION SPECIALIST Work Phone: [facility] Work Phone: 1999 haemophilus influenz ae type b vaccine, HbOC conjugate Lisa Praisler-Wood FITNESS AND WELLNESS DIRECTOR.SALES ADMINISTRATION SPECIALIST Work Phone: [facility] Work Phone: 1999 hepatitis B vaccine, pediatric or pediatric/adolescent dosage Lisa Praisler-Wood FITNESS AND WELLNESS DIRECTOR.[facility] Work Phone: [facility] Work Phone: 1999 diphtheria, tetanus toxoids and acellular pertussis vaccine Lisa Praisler-Wood FITNESS AND WELLNESS DIRECTOR.SALES ADMINISTRATION SPECIALIST Work Phone: [facility] Work Phone: 1999 haemophilus influenz ae type b vaccine, HbOC conjugate Lisa Praisler-Wood FITNESS AND WELLNESS DIRECTOR.SALES ADMINISTRATION SPECIALIST Work Phone: [facility] Work Phone: 1999 poliovirus vaccine, inactivated Lisa Praisler-Wood FITNESS AND WELLNESS DIRECTOR.[facility] Work Phone: [facility] Work Phone: 1999 diphtheria, tetanus toxoids and acellular pertussis vaccine Lisa Praisler-Wood FITNESS AND WELLNESS DIRECTOR.SALES ADMINISTRATION SPECIALIST Work Phone: [facility] Work Phone: 1999 haemophilus influenz ae type b vaccine, HbOC conjugate Lisa Praisler-Wood FITNESS AND WELLNESS DIRECTOR.[facility] Work Phone: [facility] Work Phone: 1999 poliovirus vaccine, inactivated Lisa Praisler-Wood FITNESS AND WELLNESS DIRECTOR.[facility] Work Phone: [facility] Work Phone: Payers Date Payer Category Payer Medicare MEDICARE MEDICAR E A AND B [id number] 2021-Present [phone] [place] [address] Medicare [id number] 2021 Medicare [id number] 2021 [place] [id number] 2021-Present [phone] [address] [place] [address] Medicaid [id number] 2021 Medicare [id number] Social History Date Type Detail Facility Start: 05-23-2021 End: 07-27-2022 Tobacco smoking status NHIS Ex-smoker [facility] End: 02-14-2021 History of tobacco use Current smoker [facility] End: 02-14-2021 History of tobacco use Cigarette Smoker [facility] Start: 05-23-2021 End: 07-27-2022 Tobacco use and exposure Smokeless tobacco non-user [facility] Start: 02-19-2022 End: 03-16-2023 Alcohol intake Current non-drinker of alcohol (finding) [facility] Start: 2000 Sex Assigned At Not on file C [facility] Start: 02-07-2022 End: 02-17-2022 Exposure to SARS-CoV-2 (event) Not sure [facility] Start: 07-27-2022 Tobacco Comment Mom outside [facility] Start: 09-04-2022 End: 03-16-2023 History of Social function [facility] Work Phone: Start: 09-04-2022 End: 03-16-2023 Tobacco use panel [facility] Work Phone: Adult Depression Screening Assessment 0 [facility] Work Phone: Clinical Notes 03-11-2022 to 06-01-2023 Telephone Encounter - Randa Patel RN - 03/25/2023 8:35 AM ESTTelephone Encounter - Dinh De La Torre PA-C - 03/25/2023 7:00 AM ESTTelephone Encounter - Randa Patel RN - 03/24/2023 2:59 PM EST Note Date & Type Note Facility 06-01-2023 Note HNO ID: [id number] Author: Dinh DE LA TORRE PA-C Service: ? Author Type: Physician Financial Planning Assistant Type: Progress Notes Filed: 06/01/2023 17:55 Note Text: 23 year old male with c/o asking for weight loss pills. Having umbilical hernia repair- unable to reduce. Not painful. Put on 2000 daysi diet. No weight loss at this point., has gained weight. Was seen at [facility]. States needs to lose weight for [...] has IEP at school Chlamydia infection 01/24/2022 [facility] ED Headache NEGATIVE HISTORY OF 08/06/2011 [...] prior data. Dinh De La Torre PA-C [facility] 03-25-2023 Miscellaneous Notes Patient notified. Randa Patel [...] work-up was normal . Pt uses [facility]. Please call patient with recommendation. Thank you. documented in this encounter [facility] 03-16-2023 Note HNO ID: [id number] Author: Dinh De La Torre PA-C Service: ? Author Type: Physician Financial Planning Assistant Type: Progress Notes Filed: 03/17/2023 2:32 PM [...] Obesity, class iii, bmi 40-49.9 (morbid obesity) ([facility]) Vitals 03/11/2022 07/27/2022 09/04/2022 03/16/2023 [...] has IEP at school Chlamydia infection 01/24/2022 [facility] ED Headache NEGATIVE HISTORY OF 08/06/2011 [...] (ADD) without hyper (more content not included)... [facility] 03-16-2023 Instructions Dinh De La Torre PA-C [...] Let me know. documented in this encounter [facility] 03-16-2023 History of Presen t illness Narrative [...] Obesity, class iii, bmi 40-49.9 (morbid obesity) ([facility]) Vitals 03/11/2022 07/27/2022 09/04/2022 03/16/2023 [...] has IEP at school Chlamydia infection 01/24/2022 [facility] ED Headache NEGATIVE HISTORY OF 08/06/2011 [...] La Torre PA-C documented in this encounter [facility] 03-16-2023 Nurse Note Verified with mother over the phone that patient is taking Strattera 80 mg daily. She feels he is suffering from anxiety. He went to [facility] ER on 02/22/23 for headache and chest pain and work up was normal. Patient also complains of racing heart and tingling in hands per mother. Deidre Peña Ma 8:41 AM documented in this encounter [facility] 01-28-2023 Miscellaneous Notes Completed for faxed back as requested Patient has been identified by name and date of : Yes Type of form: verification of disability [facility] Form received via: Fax When form is completed, fax form to fax number provided. Form has been forwarded to: Provider's desk. Provider name: Elver Hernadez LPN documented in this encounter [facility] 09-14-2022 Miscellaneous Notes Patient calls to let provider know that his insurance will not cover any weight loss medication as discussed at visit. Paulina Smiley RN documented in this encounter [facility] 09-04-2022 Note HNO ID: [id number] Author: Dinh De La Torre PA-C Service: ? Author Type: Physician Financial Planning Assistant Type: Progress Notes Filed: 09/04/2022 1:55 PM [...] has IEP at school Chlamydia infection 01/24/2022 [facility] ED Headache NEGATIVE HISTORY OF 08/06/2011 [...] - Encouraged followi (more content not included)... [facility] 09-04-2022 History of Presen t illness Narrative [...] has IEP at school Chlamydia infection 01/24/2022 [facility] ED Headache NEGATIVE HISTORY OF 08/06/2011 [...] La Torre PA-C documented in this encounter [facility] 07-28-2022 Miscellaneous Notes Patient given results and verbalized understanding of instructions given.Maria Luisa Pate ----- Message from José Antonio Hannah MD sent at 07/27/2022 8:28 PM EDT ----- Negative for COVID and influenza. documented in this encounter [facility] 07-27-2022 Note HNO ID: [id number] Author: Jw Monroe APRN.CANDACE Service: ? Author Type: Nurse Practitioner Type: Progress Notes Filed: 07/27/2022 9:25 AM Note Text: Subjective HPI Nontoxic-appearing male presents to urgent care with chief complaint of upper respiratory tract like infection. Duration of symptoms 3 days. Associated symptoms sore throat, nasal congestion, nasal discharge and nonproductive cough. Patient denies the use of any [id number] medications or home remedies for symptom management. [...] has IEP at school Chlamydia infection 01/24/2022 [facility] ED Headache NEGATIVE HISTORY OF 08/06/2011 [...] of care. This note was generated using IKO System software. It may contain errors in wording, punctuation, or spelling. Jw Monroe, (more content not included)... [facility] 07-27-2022 Instructions Jw Monroe APRN.[facility] - 07/27/2022 9:17 AM EDT How [...] concerning to you. documented in this encounter [facility] 07-27-2022 History of Presen t illness Narrative Subjective HPI Nontoxic-appearing male presents to urgent care with chief complaint of upper respiratory tract like infection. Duration of symptoms 3 days. Associated symptoms sore throat, nasal congestion, nasal discharge and nonproductive cough. Patient denies the use of any iyfj-ucp-[id number] medications or home remedies for symptom management. [...] has IEP at school Chlamydia infection 01/24/2022 [facility] ED Headache NEGATIVE HISTORY OF 08/06/2011 [...] of care. This note was generated using IKO System software. It may contain errors in wording, punctuation, or spelling. Jw Monroe APRN.CANDACE documented in this encounter [facility] 03-13-2022 Miscellaneous Notes ----- Message from Lisa Valderrama APRN.CNP sent at 03/13/2022 7:22 AM EDT ----- Please advise patient the urine culture was negative. documented in this encounter [facility] 03-12-2022 Miscellaneous Notes Phone call placed patient advised (see prior provider encounter) Patient verbalized understanding, agreed with plan of care. .me Please notify of positive trichomonas. This is a sexually transmitted infection. Treatment is 2 gms of metronidazole one time dose, abstinence for one week. No alcohol for 24 hours with dosing. All partners need treated. Prescription sent to [facility] Please also notify negative for covid and flu Addie Hanna APRN.CNP Please notify of positive trichomonas. This is a sexually transmitted infection. Treatment is 2 gms of metronidazole one time dose, abstinence for one week. All partners need treated. Prescription sent to [facility]. Addie Hanna APRN.CNP documented in this encounter [facility] 03-12-2022 Miscellaneous Notes Patient calling with lab result. Patient denies any new or worsening symptoms of which a provider is not aware:Yes. Reason for call: Requesting covid-19 test results Outcome: Lab still in process, link for MyChart sent to patient. Patient can also call NOC or office later to see if results are final. documented in this encounter [facility] 03-11-2022 History of Presen t illness Narrative Subjective Hematuria Irritative symptoms include frequency. Irritative symptoms do not include urgency. Associated symptoms include dysuria. Pertinent negatives include no abdominal pain, chills, fever, flank pain, nausea or vomiting. Emmanuelle Everett is a 22 year old male who presents with burning with urination and hematuria. Pt was seen in [facility] on 01/24/2022 for dysuria and given cephalexin, then returned on 02/08/2022 and was treated with doxycycline and bactrim. Pt states he tested positive for chlamydia at [facility], but was not tested for chlamydia or trich. Pt was then seen in [facility] on 02/17/2022 for persistent symptoms and [...] has IEP at school Chlamydia infection 01/24/2022 [facility] Headache NEGATIVE HISTORY OF 08/06/2011 [...] ROUTINE Lory Espino APRN Student TEACHING PROVIDER (Physician/PA/FITNESS AND WELLNESS DIRECTOR) NOTE OF PERSONAL INVOLVEMENT IN CARE: I have personally seen and examined the patient and performed the medical decision-making components. I have reviewed the Advanced Practice Registered Nurse (FITNESS AND WELLNESS DIRECTOR) Student's documentation and verified the findings in the note as written. Any additions or changes are noted in bold/italics. Signature: Lisa Valderrama Date: 03/11/2022 Time: 6:47 PM documented in this encounter [facility] 03-11-2022 Instructions Lory Espino - 03/11/2022 6:33 [...] Espino APRN Student documented in this encounter [facility] Diagnosis Suspected COVID-19 virus infection- Primary [facility] Diagnosis Ventral hernia without obstruction or [...] of diabetes mellitus [facility] Diagnosis 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 Obesity, Class III, BMI 40-49.9 (morbid obesity) (HCC) Morbid obesity Acanthosis nigricans Acquired acanthosis nigricans Hyperlipidemia, mixed Mixed hyperlipidemia FH: diabetes mellitus Family history of diabetes mellitus Ventral hernia without obstruction or gangrene Ventral hernia, unspecified, without mention of obstruction or gangrene documented in this encounter [facility] Reason for Referral Specialty Diagnoses / Procedures Referred By Contac t Referred To Contact Urology Diagnoses Recurrent UTI (urinary tract infection) Dysuria Procedures CONSULT TO UROLOGY OFFICE/OUTPATIENT NEW HIGH MDM 60-74 MINUTES Lisa Valderrama APRN.[employer] SPECIALIST [address] [place] [address] Referral ID Status Reason Start Date Expiration Date Visits Requested Visits Authorized [id number] Authorized PCP Requested Referral 2 03/11/2023 1 1 Specialty Diagnoses / Procedures Referred By Contac t Referred To Contact Diagnoses Obesity, Class III, BMI 40-49.9 (morbid obesity) (HCC) Procedures CONSULT [facility] OFFICE/OUTPATIENT NEW HIGH MDM 60-74 MINUTES Dinh De La Torre PA-C [address] [place] [address] Referral ID Status Reason Start Date Expiration Date Visits Requested Visits Authorized [id number] Authorized PCP Requested Referral 09/04/2022 09/04/2023 1 [...] or prosecute any alcohol or drug abuse patient.[facility] the event this information is protected by the Federal Confidentiality of Alcohol and Drug Abuse Patient Records regulations: The Federal rules restrict any use of the information to criminally investigate or prosecute any alcohol or drug abuse patient.[facility] the event this information is protected by the Federal Confidentiality of Alcohol and Drug Abuse Patient Records regulations: The Federal rules restrict any use of the information to criminally investigate or prosecute any alcohol or drug abuse patient.[facility] the event this information is protected by the Federal Confidentiality of Alcohol and Drug Abuse Patient Records regulations: The Federal rules restrict any use of the information to criminally investigate or prosecute any alcohol or drug abuse patient.[facility] the event this information is protected by the Federal Confidentiality of Alcohol and Drug Abuse Patient Records regulations: The Federal rules restrict any use of the information to criminally investigate or prosecute any alcohol or drug abuse patient.[facility] Center[facility] the event this information is protected by the Federal Confidentiality of Alcohol and Drug Abuse Patient Records regulations: The Federal rules restrict any use of the information to criminally investigate or prosecute any alcohol or drug abuse patient.[facility] Center[facility] the event this information is protected by the Federal Confidentiality of Alcohol and Drug Abuse Patient Records regulations: The Federal rules restrict any use of the information to criminally investigate or prosecute any alcohol or drug abuse patient.[facility] Center[facility] the event this information is protected by the Federal Confidentiality of Alcohol and Drug Abuse Patient Records regulations: The Federal rules restrict any use of the information to criminally investigate or prosecute any alcohol or drug abuse patient.[facility] CenterIn the event this information is protected by the Federal Confidentiality of Alcohol and Drug Abuse Patient Records regulations: The Federal rules restrict any use of the information to criminally investigate or prosecute any alcohol or drug abuse patient.[facility] Center[facility] the event this information is protected by the Federal Confidentiality of Alcohol and Drug Abuse Patient Records regulations: The Federal rules restrict any use of the information to criminally investigate or prosecute any alcohol or drug abuse patient.[facility] CenterIn the event this information is protected by the Federal Confidentiality of Alcohol and Drug Abuse Patient Records regulations: The Federal rules restrict any use of the information to criminally investigate or prosecute any alcohol or drug abuse patient.[facility] Reason for Visit (unrecogniz ed section and content) Reason Comments Results Reason Comments Cough Chest congestion, wh eezing x 3 days Reason Comments Weight Problem Referral to diaticia n Reason Comments Patient Update Reason Comments Forms Reason Comments 6 Month Exam Reason Comments Patient Update Patient Request Care Teams (unrecognized sec tion and content) Squirrel Man Relationship Specialty Start Date End Date Dinh De La Torre PA-C [address] [place] [address] PCP - General Family Medicine 09/19/18 Squirrel Man Relationship Specialty Start Date End Date Dinh De La Torre PA-C [address], [place] [id number] PCP - General Family Medicine 09/19/18 Squirrel Man Relationship Specialty Start Date End Date Dinh De La Torre PA-C [address], [place] [id number] PCP - General Family Medicine 09/19/18 Squirrel Man Relationship Specialty Start Date End Date Dinh De La Torre PA-C [address] [facility], [place] [id number] PCP - General Family [facility] 09/19/18 Squirrel Man Relationship Specialty Start Date End Date Dinh De La Torre PA-C [address] [place] [address] PCP - General Family [facility] 09/19/18 Squirrel Man Relationship Specialty Start Date End Date Dinh De La Torre PA-C [address] [place] [address] PCP - General [facility] 09/19/18 Squirrel Man Relationship Specialty Start Date End Date Dinh De La Torre PA-C [address] [place] [address] PCP - General [facility] 09/19/18 Squirrel Man Relationship Specialty Start Date End Date Dinh De La Torre PA-C [address] [place] [address] PCP - General [facility] 09/19/18 Squirrel Man Relationship Specialty Start Date End Date Dinh De La Torre PA-C [address] [place] [address] PCP - General Family Medicine 09/19/18 (unrecognized [...] BE BASED ON THE PRIMARY CLINICAL RECORDS. [email or web address] [facility]. provides no warranty or guarantee of the accuracy or completeness of information in this document.
--- NOTE | 2023-06-10 22:47 | CT_ITS ---
EXAM: CT Abdomen And Pelvis W/ Contrast Injection HISTORY: umbilical hernia, inc pain, no BMs -- IV PO Contrast TECHNIQUE: Routine protocol CT abdomen pelvis. IV Contrast: IV 100mL Isovue-370 . Oral Contrast: with. Sagittal and coronal images were reconstructed. RADIATION DOSAGE (If Supplied By Facility): CTDIvol = ( 18.74 ) mGy, DLP = ( 1272.14 ) mGycm Individualized dose optimization techniques were used for this CT. COMPARISON: CT abdomen and pelvis 05/07/2022. LIMITATIONS: None. FINDINGS: LOWER CHEST: Lung bases are clear. LIVER: Fatty infiltration. GALLBLADDER/BILE DUCTS: Small gallstone in the gallbladder. PANCREAS: Unremarkable. SPLEEN: Unremarkable. ADRENAL GLANDS: 1 cm fat attenuation nodule right adrenal unchanged likely benign adenoma. KIDNEYS / URETERS: Unremarkable. BOWEL / MESENTERY: Unremarkable. No bowel obstruction. APPENDIX: Identified and normal. No evidence of acute appendicitis. PERITONEUM: No free air. No free fluid. VESSELS: Abdominal aorta is normal caliber. RETROPERITONEUM: Unremarkable. REPRODUCTIVE ORGANS: Unremarkable. BLADDER: Minimally distended. ABDOMINAL WALL: Moderate size umbilical/left periumbilical hernia contains only fat, no bowel, appears larger compared to the prior. No stranding or fluid within the hernia sac. Smaller left inguinal hernia contains only fat, no bowel. BONES: No acute abnormality. OTHER: None. CT/Abdomen/Pelvis WITH Contrast IMPRESSION: Fat-containing umbilical hernia appears larger compared to the prior but is otherwise unremarkable. No evidence of complication. No bowel obstruction. Electronically Signed: Zaynab Miranda MD at 1:01 EST ,
== END 2023-06-10 01:28 | disposition home or self-care (01) ==
PROVIDERS: Emergency Provider Emergency Medicine; PCP Physician Assistant; Visit Provider Emergency Medicine
DX: K59.00 Constipation, unspecified (principal); K42.9 Umbilical hernia without obstruction or gangrene; E66.9 Obesity, unspecified; Z79.899 Other long term (current) drug therapy
CPT/HCPCS: 74177; 80048; 85025; 96361; 96374; 99283; J7030; Q9967; A4216

== ENCOUNTER 2023-06-28 10:03 | Day surgery (SDC) | payer MEDICARE, MEDICAID, SELFPAY ==
--- OUTSIDE RECORDS SUMMARY | 2023-06-04 06:05 | XMS RPT_ITS | CCD ---
Author Name Unknown Address [address] [place] [address] Organization [facility] Care Team Providers Care Mortgage Loan Processing Clerk Name Role Phone Dinh De La Torre PA-C Primary Care Provider [phone] Dinh DE LA TORRE Attending Unavailable Dinh [...] EXTRACTS] Drug Allergy 2 Other: See Comments [facility] (11 sources) Environmental [Other] Propensity to adverse reactions 6 Cough [facility] Work Phone: (1 source) OTHER; Translations: [OTHER] Propensity to adverse reactions (disorder) 6 [facility] Repository Medications Current Medications Medication Drug [...] [Obesity, Class III, BMI 40-49.9 (morbid obesity) ([facility])] Onset: 03-16-2023 Chronic Other screening for suspected [...] NA De La Torre PA-C Work Phone: [facility] 03-16-2023 11:20-0400 Diastolic blood pressure 82 mm[Hg] NA De La Torre PA-C Work Phone: [facility] 03-16-2023 11:20-0400 Heart rate 102 /min NA De La Torre PA-C Work Phone: [facility] 03-16-2023 11:20-0400 Respiratory rate 16 /min NA De La Torre PA-C Work Phone: [facility] 03-16-2023 11:20-0400 SaO2% (BldA) [Mass fraction] 99 % NA De La Torre PA-C Work Phone: [facility] 03-16-2023 11:20-0400 Systolic blood pressure 140 mm[Hg] NA De La Torre PA-C Work Phone: [facility] 09-04-2022 12:45-0400 Body weight 142.88 kg NA De La Torre PA-C Work Phone: [facility] 09-04-2022 12:45-0400 Diastolic blood pressure 80 mm[Hg] NA De La Torre PA-C Work Phone: [facility] 09-04-2022 12:45-0400 Heart rate 80 /min NA De La Torre PA-C Work Phone: [facility] 09-04-2022 12:45-0400 Respiratory rate 18 /min NA De La Torre PA-C Work Phone: [facility] 09-04-2022 12:45-0400 SaO2% (BldA) [Mass fraction] 97 % NA De La Torre PA-C Work Phone: [facility] 09-04-2022 12:45-0400 Systolic blood pressure 120 mm[Hg] NA De La Torre PA-C Work Phone: [facility] 07-27-2022 08:59-0400 Body temperature 98.8 [degF] Jw P[place]lebury DOUBLE BACK OPERATOR.DOUGH MIXER OPERATOR Work Phone: [facility] 07-27-2022 08:59-0400 Body weight 139.53 kg [facility] DOUBLE BACK OPERATOR.DOUGH MIXER OPERATOR Work Phone: [facility] 07-27-2022 08:59-0400 Diastolic blood pressure 82 mm[Hg] [facility] DOUBLE BACK OPERATOR.DOUGH MIXER OPERATOR Work Phone: [facility] 07-27-2022 08:59-0400 Heart rate 100 /min Jw [place] DOUBLE BACK OPERATOR.DOUGH MIXER OPERATOR Work Phone: [facility] 07-27-2022 08:59-0400 Respiratory rate 21 /min Jw [place] DOUBLE BACK OPERATOR.DOUGH MIXER OPERATOR Work Phone: [facility] 07-27-2022 08:59-0400 SaO2% (BldA) [Mass fraction] 99 % [facility] DOUBLE BACK OPERATOR.DOUGH MIXER OPERATOR Work Phone: [facility] 07-27-2022 08:59-0400 Systolic blood pressure 142 mm[Hg] [facility] DOUBLE BACK OPERATOR.DOUGH MIXER OPERATOR Work Phone: [facility] 03-11-2022 18:02-0400 Body temperature 98.6 [degF] Lisa Valderrama DOUBLE BACK OPERATOR.DOUGH MIXER OPERATOR Work Phone: [facility] 03-11-2022 18:02-0400 Body weight 139.25 kg Lisa Bernardo-Casey DOUBLE BACK OPERATOR.DOUGH MIXER OPERATOR Work Phone: [facility] 03-11-2022 18:02-0400 Diastolic blood pressure 62 mm[Hg] Lisa Praisler-Wood DOUBLE BACK OPERATOR.DOUGH MIXER OPERATOR Work Phone: [facility] 03-11-2022 18:02-0400 Heart rate 90 /min Lisa Praisler-Wood DOUBLE BACK OPERATOR.DOUGH MIXER OPERATOR Work Phone: [facility] 03-11-2022 18:02-0400 Respiratory rate 16 /min Lisa Praisler-Wood DOUBLE BACK OPERATOR.DOUGH MIXER OPERATOR Work Phone: [facility] 03-11-2022 18:02-0400 SaO2% (BldA) [Mass fraction] 97 % Lisa Praisler-Wood DOUBLE BACK OPERATOR.DOUGH MIXER OPERATOR Work Phone: [facility] 03-11-2022 18:02-0400 Systolic blood pressure 118 mm[Hg] Lisa Praisler-Wood DOUBLE BACK OPERATOR.DOUGH MIXER OPERATOR Work Phone: [facility] Encounters Encounter Date Encounter Type Care Provider Facility Start: 06-01-2023 End: 06-01-2023 ambulatory Dinh DE LA TORRE Facility:[facility] Start: 03-24-2023 Telephone encounter Dinh De La Torre PA-C Work Phone: [facility] Procedures Date Procedure Procedure Detail Performing Clinician Start: 03-11-2022 Urnls dip stick/tabl et rgnt auto w/o microscopy [facility] Provider Plan of Treatment Date Care Activity Detail Author Start: 04-12-2031 Urine microalbumin profile [facility] Start: 01-15-2023 Covid-19 Vaccine ( season) Covid-19 Vaccine ( season) [facility] Start: 01-15-2023 Influenza vaccination [facility] Start: 09-04-2022 End: 11-04-2022 Basic metabolic 2000 panel - Serum or Plasma BASIC METABOLIC PNL Lab Routine Screening for diabetes mellitus Dysmetabolic syndrome Expected: 09/04/2022, Expires: 11/04/2022 [facility] Work Phone: Immunizations Immunization Date Immunization Notes Care Provider Fa cility 03-01-2023 influenza, injectabl e, quadrivalent, contains preservative NA Wil MERCADO Work Phone: [facility] 07-15-2021 influenza, injectabl e, quadrivalent, contains preservative Lisa Bernardo-Wood DOUBLE BACK OPERATOR.[facility] Work Phone: [facility] 07-15-2021 influenza virus vacc ine, unspecified formulation NA Wil MERCADO Work Phone: [facility] 04-12-2021 tetanus toxoid, redu tea diphtheria toxoid, and acellular pertussis vaccine, adsorbed Lisa Bernardo-Casey DOUBLE BACK OPERATOR.[facility] Work Phone: [facility] 03-21-2018 influenza, injectabl e, quadrivalent, contains preservative Lisa Praisler-Wood DOUBLE BACK OPERATOR.[facility] Work Phone: [facility] 03-21-2018 influenza, injectabl e, quadrivalent, preservative free Lisa Praisler-Wood DOUBLE BACK OPERATOR.[facility] Work Phone: [facility] 12-21-2016 Human Papillomavirus 9-valent vaccine Lisa Praisler-Casey DOUBLE BACK OPERATOR.[facility] Work Phone: [facility] 12-17-2015 Human Papillomavirus 9-valent vaccine Lisa Praisler-Wood DOUBLE BACK OPERATOR.[facility] Work Phone: [facility] 12-17-2015 meningococcal polysaccharide (groups A, C, Y and W-135) diphtheria toxoid conjugate vaccine (MCV4P) Lisa Valderrama DOUBLE BACK OPERATOR.[facility] Work Phone: [facility] 04-17-2015 influenza, injectabl e, quadrivalent, preservative free Lisa Bernardo-Wood DOUBLE BACK OPERATOR.DOUGH MIXER OPERATOR Work Phone: [facility] Work Phone: 03-15-2014 influenza, seasonal, injectable Lisa Praisler-Wood DOUBLE BACK OPERATOR.DOUGH MIXER OPERATOR Work Phone: [facility] Work Phone: 04-01-2013 influenza virus vacc ine, unspecified formulation Lisa Bernardo-Casey DOUBLE BACK OPERATOR.DOUGH MIXER OPERATOR Work Phone: [facility] 08-06-2011 Meningococcal, MCV4, unspecified conjugate formulation(groups A, C, Y and W-135) Lisa Valderrama APRN.[facility] Work Phone: [facility] 08-06-2011 tetanus toxoid, redu tea diphtheria toxoid, and acellular pertussis vaccine, adsorbed Lisa Valderrama DOUBLE BACK OPERATOR.[facility] Work Phone: [facility] 03-22-2010 influenza virus vacc ine, unspecified formulation Lisa Valderrama DOUBLE BACK OPERATOR.[facility] Work Phone: [facility] Work Phone: 03-07-2009 influenza virus vacc ine, unspecified formulation Lisa Valderrama DOUBLE BACK OPERATOR.[facility] Work Phone: [facility] Work Phone: 08-09-2003 diphtheria, tetanus toxoids and acellular pertussis vaccine Lisa Bernardo-Casey DOUBLE BACK OPERATOR.[facility] Work Phone: [facility] Work Phone: 08-09-2003 measles, mumps and rubella virus vaccine Lisa Bernardo-Casey DOUBLE BACK OPERATOR.[facility] Work Phone: [facility] Work Phone: 08-09-2003 poliovirus vaccine, inactivated Lisa Valderrama DOUBLE BACK OPERATOR.[facility] Work Phone: [facility] Work Phone: 04-03-2003 influenza virus vacc ine, unspecified formulation Lisa Valderrama DOUBLE BACK OPERATOR.[facility] Work Phone: [facility] Work Phone: 03-05-2003 influenza virus vacc ine, unspecified formulation Lisa Bernardo-Casey DOUBLE BACK OPERATOR.[facility] Work Phone: [facility] Work Phone: 05-24-2000 diphtheria, tetanus toxoids and acellular pertussis vaccine Lisa Bernardo-Casey DOUBLE BACK OPERATOR.[facility] Work Phone: [facility] Work Phone: 05-24-2000 haemophilus influenz ae type b vaccine, HbOC conjugate Lisa Praisler-Wood DOUBLE BACK OPERATOR.DOUGH MIXER OPERATOR Work Phone: [facility] Work Phone: 05-24-2000 hepatitis B vaccine, pediatric or pediatric/adolescent dosage Lisa Praisler-Wood DOUBLE BACK OPERATOR.DOUGH MIXER OPERATOR Work Phone: [facility] Work Phone: 03-10-2000 measles, mumps and rubella virus vaccine Lisa Praisler-Wood DOUBLE BACK OPERATOR.DOUGH MIXER OPERATOR Work Phone: [facility] Work Phone: 03-10-2000 poliovirus vaccine, inactivated Lisa Praisler-Wood DOUBLE BACK OPERATOR.[facility] Work Phone: [facility] Work Phone: 03-10-2000 varicella virus vaccine Marge y Praisler-Wood DOUBLE BACK OPERATOR.[facility] Work Phone: [facility] Work Phone: 02-23-2000 measles, mumps and rubella virus vaccine Lisa Praisler-Wood DOUBLE BACK OPERATOR.[facility] Work Phone: [facility] 02-23-2000 poliovirus vaccine, inactivated Lisa Praisler-Wood DOUBLE BACK OPERATOR.[facility] Work Phone: [facility] 02-23-2000 varicella virus vaccine Marge y Praisler-Wood DOUBLE BACK OPERATOR.[facility] Work Phone: [facility] 1999 hepatitis B vaccine, pediatric or pediatric/adolescent dosage Lisa Praisler-Wood DOUBLE BACK OPERATOR.DOUGH MIXER OPERATOR Work Phone: [facility] Work Phone: 1999 diphtheria, tetanus toxoids and acellular pertussis vaccine Lisa Praisler-Wood DOUBLE BACK OPERATOR.DOUGH MIXER OPERATOR Work Phone: [facility] Work Phone: 1999 haemophilus influenz ae type b vaccine, HbOC conjugate Lisa Praisler-Wood DOUBLE BACK OPERATOR.DOUGH MIXER OPERATOR Work Phone: [facility] Work Phone: 1999 hepatitis B vaccine, pediatric or pediatric/adolescent dosage Lisa Praisler-Wood DOUBLE BACK OPERATOR.[facility] Work Phone: [facility] Work Phone: 1999 diphtheria, tetanus toxoids and acellular pertussis vaccine Lisa Praisler-Wood DOUBLE BACK OPERATOR.DOUGH MIXER OPERATOR Work Phone: [facility] Work Phone: 1999 haemophilus influenz ae type b vaccine, HbOC conjugate Lisa Praisler-Wood DOUBLE BACK OPERATOR.DOUGH MIXER OPERATOR Work Phone: [facility] Work Phone: 1999 poliovirus vaccine, inactivated Lisa Praisler-Wood DOUBLE BACK OPERATOR.[facility] Work Phone: [facility] Work Phone: 1999 diphtheria, tetanus toxoids and acellular pertussis vaccine Lisa Praisler-Wood DOUBLE BACK OPERATOR.DOUGH MIXER OPERATOR Work Phone: [facility] Work Phone: 1999 haemophilus influenz ae type b vaccine, HbOC conjugate Lisa Praisler-Wood DOUBLE BACK OPERATOR.[facility] Work Phone: [facility] Work Phone: 1999 poliovirus vaccine, inactivated Lisa Praisler-Wood DOUBLE BACK OPERATOR.[facility] Work Phone: [facility] Work Phone: Payers Date Payer Category Payer Medicare MEDICARE MEDICAR E A AND B [id number] 2021-Present [phone] [place] [address] Medicare [id number] 2021 Medicare [id number] 2021 [place] [id number] 2021-Present [phone] [address] [place] [address] Medicaid [id number] 2021 Medicare [id number] Social History Date Type Detail Facility Start: 05-23-2021 End: 07-27-2022 Tobacco smoking status NHIS Ex-smoker [facility] End: 02-14-2021 History of tobacco use Current smoker [facility] End: 02-14-2021 History of tobacco use Cigarette Smoker [facility] Start: 05-23-2021 End: 07-27-2022 Tobacco use and exposure Smokeless tobacco non-user [facility] Start: 02-19-2022 End: 03-16-2023 Alcohol intake Current non-drinker of alcohol (finding) [facility] Start: 2000 Sex Assigned At Not on file [facility] Start: 02-07-2022 End: 02-17-2022 Exposure to SARS-CoV-2 (event) Not sure [facility] Start: 07-27-2022 Tobacco Comment Mom outside [facility] Start: 09-04-2022 End: 03-16-2023 History of Social function [facility] Work Phone: Start: 09-04-2022 End: 03-16-2023 Tobacco use panel [facility] Work Phone: Adult Depression Screening Assessment 0 [facility] Work Phone: Clinical Notes 03-11-2022 to 06-01-2023 Telephone Encounter - Randa Patel RN - 03/25/2023 8:35 AM ESTTelephone Encounter - Dinh De La Torre PA-C - 03/25/2023 7:00 AM ESTTelephone Encounter - Randa Patel RN - 03/24/2023 2:59 PM EST Note Date & Type Note Facility 06-01-2023 Note HNO ID: [id number] Author: Dinh DE LA TORRE PA-C Service: ? Author Type: Physician Surgical Garment Assembly Supervisor Type: Progress Notes Filed: 06/01/2023 17:55 Note Text: 23 year old male with c/o asking for weight loss pills. Having umbilical hernia repair- unable to reduce. Not painful. Put on 2000 daysi diet. No weight loss at this point., has gained weight. Was seen at [facility]. States needs to lose weight for surgery. Has made no exercise or diet changes. ' Mother says he can get on a pill from insurance for $4 a month and lose weight. HISTORIES FAMILY HISTORY Problem Relation Age of Onset Heart Maternal Grandmother Diabetes Maternal Grandmother Heart Maternal Grandfather Diabetes Maternal Grandfather other (NEUTROPENIA) Brother Diabetes Maternal Uncle Emphysema Maternal Aunt PAST MEDICAL HISTORY Diagnosis Date Allergic rhinitis, cause unspecified Attention deficit disorder with hyperactivity(314.01) has IEP at school Chlamydia infection 01/24/2022 [facility] ED Headache NEGATIVE HISTORY OF 08/06/2011 Normal Color Vision PAST SURGICAL HISTORY Procedure Laterality Date CIRCUMCISION W/CLAMP/OTH DEV W/BLOCK 1998 PAST SURGICAL HISTORY OF [place] Social History Tobacco Use Smoking status: Former Types: Cigarettes Quit date: 02/14/2021 Years since quittin.2 Smokeless tobacco: Never Tobacco comments: Mom outside Substance Use Topics Alcohol use: No Drug use: No ACTIVE PROBLEM LIST Allergic Rhinitis, Cause Unspecified Add (Attention Deficit Disorder) 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 90 tablet 1 Atomoxetine (STRATTERA) 80 mg capsule Take 1 capsule by mouth once daily. 90 capsule 1 No current facility-administered medications for this visit. Meningococcal B Vaccine: Consider Based On Risk(1 of 2 - Patient Seeks Protection) Never done Hepatitis C Screening Never done HIV Screening Never done HPV Vaccine(3 - Male 3-dose series) due on 04/22/2017 Covid-19 Vaccine(2022- season) due on 01/15/2023 Depression Assessment due on 05/17/2023 EXAM: BP 148/72 Pulse 86 Resp 18 Wt (!) 145.6 kg (321 lb) SpO2 98% BMI 49.22 kg/m? Pleasant obese young man, slightly anxious, in no acute distress. Alert and oriented all spheres. Normal affect and cognition. Speech normal. No deficits to learning or comprehension. Skin warm, dry, pink to lips and nailbeds. Normal turgor. Respirations regular and unlabored. HEENT: NCAT. No scleral icterus or conjunctival injection. TM's clear. Nose and oropharynx free from injection or lesion. Oral membranes moist and pink. No cervical lymph nodes. Thyroid non-tender, no masses, or enlargement. Carotids pulses 2+/4+ without bruits. No JVD with HOB at 30 degrees. Chest is normal shape. Lungs are clear to all ramirez with good air exchange through out. HRRR without murmur or gallop. No lifts, heaves, or rubs. Extrem: no clubbing or cyanosis. Edema: none. Extremities are warm and pink with prompt capillary refill. ASSESSMENT/PLAN: 1. Body mass index equal to or greater than 95th percentile for age in pediatric patient - ICD9: V85.54, ICD10: Z68.54 (primary diagnosis) 2. Morbid obesity (HCC) - ICD9: 278.01, ICD10: E66.01 Discussed weight loss management outcomes. Goal is for sustained weight loss at 5 years and beyond. We discussed phentermine is a stimulant, there is some risk of pulmonary hypertension, disruption in sleep, mood changes, patient was given handout regarding potential side effects. I am generally not in favor of using this medication because it tends to have a period of time with weight loss which then seems to drop off. If he fails to lose weight over 2 months I would recommend discontinuing medication. Other options were reviewed with the patient including professionally light weight loss programs such as weight watchers or Nutriquest. Patient will not gain much by taking medication if he does not change in diet and exercise. This was discussed at length. Patient to follow-up in 4 weeks for weight check and each 4 weeks after that. If he goes 2 months without weight loss we will stop medication. - PHENTERMINE 37.5 MG TABLET Dinh De La Torre PA-C Some of this note may have been copied and pasted for the purpose of history context and comparison and has been adjusted for changes in prior data. Dinh De La Torre PA-C [facility] 03-25-2023 Miscellaneous Notes Patient notified. Randa Patel [...] work-up was normal . Pt uses [facility]. Please call patient with recommendation. Thank you. documented in this encounter [facility] 03-16-2023 Note HNO ID: [id number] Author: Dinh De La Torre PA-C Service: ? Author Type: Physician Surgical Garment Assembly Supervisor Type: Progress Notes Filed: 03/17/2023 2:32 PM [...] Obesity, class iii, bmi 40-49.9 (morbid obesity) ([facility]) Vitals 03/11/2022 07/27/2022 09/04/2022 03/16/2023 WEIGHT in [...] has IEP at school Chlamydia infection 01/24/2022 [facility] ED Headache NEGATIVE HISTORY OF 08/06/2011 Normal [...] (ADD) without hyper (more content not included)... [facility] 03-16-2023 Instructions Dinh De La Torre PA-C [...] Let me know. documented in this encounter [facility] 03-16-2023 History of Presen t illness Narrative [...] Obesity, class iii, bmi 40-49.9 (morbid obesity) ([facility]) Vitals 03/11/2022 07/27/2022 09/04/2022 03/16/2023 WEIGHT in [...] has IEP at school Chlamydia infection 01/24/2022 [facility] ED Headache NEGATIVE HISTORY OF 08/06/2011 Normal [...] La Torre PA-C documented in this encounter [facility] 03-16-2023 Nurse Note Verified with mother over the phone that patient is taking Strattera 80 mg daily. She feels he is suffering from anxiety. He went to [facility] ER on 02/22/23 for headache and chest pain and work up was normal. Patient also complains of racing heart and tingling in hands per mother. Deidre Peña Ma 8:41 AM documented in this encounter [facility] 01-28-2023 Miscellaneous Notes Completed for faxed back as requested Patient has been identified by name and date of : Yes Type of form: verification of disability [facility] Form received via: Fax When form is completed, fax form to fax number provided. Form has been forwarded to: Provider's desk. Provider name: Elver Hernadez LPN documented in this encounter [facility] 09-14-2022 Miscellaneous Notes Patient calls to let provider know that his insurance will not cover any weight loss medication as discussed at visit. Paulina Smiley RN documented in this encounter [facility] 09-04-2022 Note HNO ID: [id number] Author: Dinh De La Torre PA-C Service: ? Author Type: Physician Surgical Garment Assembly Supervisor Type: Progress Notes Filed: 09/04/2022 1:55 PM [...] has IEP at school Chlamydia infection 01/24/2022 [facility] ED Headache NEGATIVE HISTORY OF 08/06/2011 Normal [...] - Encouraged followi (more content not included)... [facility] 09-04-2022 History of Presen t illness Narrative [...] has IEP at school Chlamydia infection 01/24/2022 [facility] ED Headache NEGATIVE HISTORY OF 08/06/2011 Normal [...] La Torre PA-C documented in this encounter [facility] 07-28-2022 Miscellaneous Notes Patient given results and verbalized understanding of instructions given.Maria Luisa Pate ----- Message from José Antonio Hannah MD sent at 07/27/2022 8:28 PM EDT ----- Negative for COVID and influenza. documented in this encounter [facility] 07-27-2022 Note HNO ID: [id number] Author: Jw Monroe APRN.CANDACE Service: ? Author Type: Nurse Practitioner Type: Progress Notes Filed: 07/27/2022 9:25 AM Note Text: Subjective HPI Nontoxic-appearing male presents to urgent care with chief complaint of upper respiratory tract like infection. Duration of symptoms 3 days. Associated symptoms sore throat, nasal congestion, nasal discharge and nonproductive cough. Patient denies the use of any bqcy-cjc-wpdyeth medications or home remedies for symptom management. [...] has IEP at school Chlamydia infection 01/24/2022 [facility] ED Headache NEGATIVE HISTORY OF 08/06/2011 Normal [...] of care. This note was generated using Pretty in my Pocket (PRIMP) software. It may contain errors in wording, punctuation, or spelling. Jw Monroe, (more content not included)... [facility] 07-27-2022 Instructions Jw Monroe APRN.[facility] - 07/27/2022 9:17 AM EDT How to [...] concerning to you. documented in this encounter [facility] 07-27-2022 History of Presen t illness Narrative Subjective HPI Nontoxic-appearing male presents to urgent care with chief complaint of upper respiratory tract like infection. Duration of symptoms 3 days. Associated symptoms sore throat, nasal congestion, nasal discharge and nonproductive cough. Patient denies the use of any iqog-yww-xkfjnid medications or home remedies for symptom management. [...] has IEP at school Chlamydia infection 01/24/2022 [facility] ED Headache NEGATIVE HISTORY OF 08/06/2011 Normal [...] of care. This note was generated using Pretty in my Pocket (PRIMP) software. It may contain errors in wording, punctuation, or spelling. Jw Monroe APRN.CANDACE documented in this encounter [facility] 03-13-2022 Miscellaneous Notes ----- Message from Lisa Valderrama APRN.CNP sent at 03/13/2022 7:22 AM EDT ----- Please advise patient the urine culture was negative. documented in this encounter [facility] 03-12-2022 Miscellaneous Notes Phone call placed patient advised (see prior provider encounter) Patient verbalized understanding, agreed with plan of care. .me Please notify of positive trichomonas. This is a sexually transmitted infection. Treatment is 2 gms of metronidazole one time dose, abstinence for one week. No alcohol for 24 hours with dosing. All partners need treated. Prescription sent to [facility]. Please also notify negative for covid and flu Addie Hanna APRN.CNP Please notify of positive trichomonas. This is a sexually transmitted infection. Treatment is 2 gms of metronidazole one time dose, abstinence for one week. All partners need treated. Prescription sent to [facility]. Addie Hanna APRN.CNP documented in this encounter [facility] 03-12-2022 Miscellaneous Notes Patient calling with lab result. Patient denies any new or worsening symptoms of which a provider is not aware:Yes. Reason for call: Requesting covid-19 test results Outcome: Lab still in process, link for MyChart sent to patient. Patient can also call NOC or office later to see if results are final. documented in this encounter [facility] 03-11-2022 History of Presen t illness Narrative Subjective Hematuria Irritative symptoms include frequency. Irritative symptoms do not include urgency. Associated symptoms include dysuria. Pertinent negatives include no abdominal pain, chills, fever, flank pain, nausea or vomiting. Emmanuelle Everett is a 22 year old male who presents with burning with urination and hematuria. Pt was seen in [facility] on 01/24/2022 for dysuria and given cephalexin, then returned on 02/08/2022 and was treated with doxycycline and bactrim. Pt states he tested positive for chlamydia at [facility], but was not tested for chlamydia or trich. Pt was then seen in [facility] on 02/17/2022 for persistent symptoms and was [...] has IEP at school Chlamydia infection 01/24/2022 [facility] Headache NEGATIVE HISTORY OF 08/06/2011 Normal [...] ROUTINE Lory Espino APRN Student TEACHING PROVIDER (Physician/PA/DOUBLE BACK OPERATOR) NOTE OF PERSONAL INVOLVEMENT IN CARE: I have personally seen and examined the patient and performed the medical decision-making components. I have reviewed the Advanced Practice Registered Nurse (DOUBLE BACK OPERATOR) Student's documentation and verified the findings in the note as written. Any additions or changes are noted in bold/italics. 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 Obesity, Class III, BMI 40-49.9 (morbid obesity) (HCC) Morbid obesity Acanthosis nigricans Acquired acanthosis nigricans Hyperlipidemia, mixed Mixed hyperlipidemia FH: diabetes mellitus Family history of diabetes mellitus Ventral hernia without obstruction or gangrene Ventral hernia, unspecified, without mention of obstruction or gangrene documented in this encounter [facility] Reason for Referral Specialty Diagnoses / Procedures Referred By Contac t Referred To Contact Urology Diagnoses Recurrent UTI (urinary tract infection) Dysuria Procedures CONSULT TO UROLOGY OFFICE/OUTPATIENT NEW HIGH MDM 60-74 MINUTES Lisa Valderrama APRN.DOUGH MIXER OPERATOR [address] [place] [address] Referral ID Status Reason Start Date Expiration Date Visits Requested Visits Authorized [id number] Authorized PCP Requested Referral 2 03/11/2023 1 1 Specialty Diagnoses / Procedures Referred By Contac t Referred To Contact Diagnoses Obesity, Class III, BMI 40-49.9 (morbid obesity) (HCC) Procedures CONSULT [facility] OFFICE/OUTPATIENT NEW HIGH MDM 60-74 MINUTES Dinh De La Torre PA-C [address] [place] [address] Referral ID Status Reason Start Date Expiration Date Visits Requested Visits Authorized [id number] Authorized PCP Requested Referral 09/04/2022 09/04/2023 1 [...] or prosecute any alcohol or drug abuse patient.[facility] the event this information is protected by the Federal Confidentiality of Alcohol and Drug Abuse Patient Records regulations: The Federal rules restrict any use of the information to criminally investigate or prosecute any alcohol or drug abuse patient.[facility] the event this information is protected by the Federal Confidentiality of Alcohol and Drug Abuse Patient Records regulations: The Federal rules restrict any use of the information to criminally investigate or prosecute any alcohol or drug abuse patient.[facility] the event this information is protected by the Federal Confidentiality of Alcohol and Drug Abuse Patient Records regulations: The Federal rules restrict any use of the information to criminally investigate or prosecute any alcohol or drug abuse patient.[facility] the event this information is protected by the Federal Confidentiality of Alcohol and Drug Abuse Patient Records regulations: The Federal rules restrict any use of the information to criminally investigate or prosecute any alcohol or drug abuse patient.[facility] the event this information is protected by the Federal Confidentiality of Alcohol and Drug Abuse Patient Records regulations: The Federal rules restrict any use of the information to criminally investigate or prosecute any alcohol or drug abuse patient.[facility] the event this information is protected by the Federal Confidentiality of Alcohol and Drug Abuse Patient Records regulations: The Federal rules restrict any use of the information to criminally investigate or prosecute any alcohol or drug abuse patient.[facility] the event this information is protected by the Federal Confidentiality of Alcohol and Drug Abuse Patient Records regulations: The Federal rules restrict any use of the information to criminally investigate or prosecute any alcohol or drug abuse patient.[facility] the event this information is protected by the Federal Confidentiality of Alcohol and Drug Abuse Patient Records regulations: The Federal rules restrict any use of the information to criminally investigate or prosecute any alcohol or drug abuse patient.[facility] the event this information is protected by the Federal Confidentiality of Alcohol and Drug Abuse Patient Records regulations: The Federal rules restrict any use of the information to criminally investigate or prosecute any alcohol or drug abuse patient.[facility] the event this information is protected by the Federal Confidentiality of Alcohol and Drug Abuse Patient Records regulations: The Federal rules restrict any use of the information to criminally investigate or prosecute any alcohol or drug abuse patient.[facility] Reason for Visit (unrecogniz ed section and content) Reason Comments Results Reason Comments Cough Chest congestion, wh eezing x 3 days Reason Comments Weight Problem Referral to diaticia n Reason Comments Patient Update Reason Comments Forms Reason Comments 6 Month Exam Reason Comments Patient Update Patient Request Care Teams (unrecognized sec tion and content) Mortgage Loan Processing Clerk Relationship Specialty Start Date End Date Dinh De La Torre PA-C [address] [place] [address] PCP - General Family Medicine 09/19/18 Mortgage Loan Processing Clerk Relationship Specialty Start Date End Date Dihn De La Torre PA-C [address] [place], [place] [id number] PCP - General Family Medicine 09/19/18 Mortgage Loan Processing Clerk Relationship Specialty Start Date End Date Dinh De La Torre PA-C [address] [place], [place] [id number] PCP - General Family Medicine 09/19/18 Mortgage Loan Processing Clerk Relationship Specialty Start Date End Date Dinh De La Torre PA-C [address] [facility], [place] [id number] PCP - General Family [facility] 09/19/18 Mortgage Loan Processing Clerk Relationship Specialty Start Date End Date Dinh De La Torre PA-C [address] [place] [place] [address] PCP - General Family [facility] 09/19/18 Mortgage Loan Processing Clerk Relationship Specialty Start Date End Date Dinh De La Torre PA-C [address] [place] [place] [address] PCP - General [facility] 09/19/18 Mortgage Loan Processing Clerk Relationship Specialty Start Date End Date Dinh De La Torre PA-C [address] [place] [place] [address] PCP - General [facility] 09/19/18 Mortgage Loan Processing Clerk Relationship Specialty Start Date End Date Dinh De La Torre PA-C [address] [place] [address] PCP - General [facility] 09/19/18 Mortgage Loan Processing Clerk Relationship Specialty Start Date End Date Dinh De La Torre PA-C [address] [place] [address] PCP - General Family Medicine 09/19/18 (unrecognized sect ion and content) No [...] BE BASED ON THE PRIMARY CLINICAL RECORDS. [facility]. provides no warranty or guarantee of the accuracy or completeness of information in this document.
[2023-06-28] VITALS (7 sets, daily range): BP systolic 113–144; BP diastolic 55–83; PULSE 81–96; RESP 12–16; TEMP 36.1–36.8; O2SAT 94–100; BMI 45.1
--- OUTSIDE RECORDS SUMMARY | 2023-06-28 10:23 | XMS RPT_ITS | CCD ---
Author Name Unknown Address [address] [place] [id number] Organization [facility] Care Team Providers Care Band Master Name Role Phone Dinh De La Torre PA-C Primary Care Provider [phone] Dinh DE LA TORRE Attending Unavailable Dinh [...] EXTRACTS] Drug Allergy 2 Other: See Comments [facility] (11 sources) Environmental [Other] Propensity to adverse reactions 6 Cough [facility] Work Phone: (1 source) OTHER; Translations: [OTHER] Propensity to adverse reactions (disorder) 6 [facility] Repository Medications Current Medications Medication Drug Class(es) [...] Problem Classification Problem Date Documented Date Episodic/Chronic Disorders of lipid metabolism (3 sources) Mixed [...] [Obesity, Class III, BMI 40-49.9 (morbid obesity) (HCC)] Onset: 03-16-2023 Chronic Other screening for suspected conditions (not mental disorders or infectious disease) (2 sources) Raised low density lipoprotein cholesterol; Translations: [Other specified abnormal findings of blood chemistry] Episodic Other upper respiratory disease (11 sources) Allergic rhinitis; Translations: [Allergic rhinitis, unspecified] Onset: 01-22-2007 01-22-2007 Chronic Residual codes; unclassified (2 sources) Family history of diabetes mellitus; Translations: [Family history of diabetes mellitus] Episodic Urinary tract infections (1 source) Recurrent urinary tract infection; Translations: [Urinary tract infection, site not specified] Episodic Past or Other Problems Problem Classification Problem Date Documented Da te Episodic/Chronic Abdominal hernia (3 sources) Hernia of anterior abdominal wall; Translations: [Ventral hernia without obstruction or gangrene] Onset: 03-16-2023 Episodic Other nutritional; endocrine; and metabolic disorders (11 sources) Childhood obesity; Translations: [Body mass index (BMI) pediatric, greater than or equal to 95th percentile for age] Onset: 12-17-2015 12-17-2015 Episodic Other skin disorders (13 sources) Acanthosis nigricans; Translations: [Acanthosis nigricans] Onset: 12-18-2015 12-18-2015 Episodic Other skin disorders (1 source) Acanthosis nigricans; Translations: [Acanthosis nigricans] Onset: 12-18-2015 Episodic Residual codes; unclassified (1 source) Family history of diabetes mellitus; Translations: [FH: diabetes mellitus] Onset: 03-16-2023 Episodic Results Test Name Value Interpretation Reference Range Facil ity Vital Signs Date Time Vital Sign Value Performing Clinician Facgeronimo lity 03-16-2023 11:20-0400 Body weight 142.88 kg NA De La Torre PA-C Work Phone: [facility] 03-16-2023 11:20-0400 Diastolic blood pressure 82 mm[Hg] NA De La Torre PA-C Work Phone: [facility] 03-16-2023 11:20-0400 Heart rate 102 /min NA De La Torre PA-C Work Phone: [facility] 03-16-2023 11:20-0400 Respiratory rate 16 /min NA De La Torre PA-C Work Phone: [facility] 03-16-2023 11:20-0400 SaO2% (BldA) [Mass fraction] 99 % NA De La Torre PA-C Work Phone: [facility] 03-16-2023 11:20-0400 Systolic blood pressure 140 mm[Hg] NA De La Torre PA-C Work Phone: [facility] 09-04-2022 12:45-0400 Body weight 142.88 kg NA De La Torre PA-C Work Phone: [facility] 09-04-2022 12:45-0400 Diastolic blood pressure 80 mm[Hg] NA De La Torre PA-C Work Phone: [facility] 09-04-2022 12:45-0400 Heart rate 80 /min NA De La Torre PA-C Work Phone: [facility] 09-04-2022 12:45-0400 Respiratory rate 18 /min NA De La Torre PA-C Work Phone: [facility] 09-04-2022 12:45-0400 SaO2% (BldA) [Mass fraction] 97 % NA De La Torre PA-C Work Phone: [facility] 09-04-2022 12:45-0400 Systolic blood pressure 120 mm[Hg] NA De La Torre PA-C Work Phone: [facility] 07-27-2022 08:59-0400 Body temperature 98.8 [degF] Jw [place]bury DUSTING AND BRUSHING MACHINE OPERATOR.YOU[employer]ARE PROFESSIONAL Work Phone: [facility] 07-27-2022 08:59-0400 Body weight 139.53 kg [facility] DUSTING AND BRUSHING MACHINE OPERATOR.YOU[employer] CARE PROFESSIONAL Work Phone: [facility] 07-27-2022 08:59-0400 Diastolic blood pressure 82 mm[Hg] [facility] DUSTING AND BRUSHING MACHINE OPERATOR.YOUTH CARE PROFESSIONAL Work Phone: [facility] 07-27-2022 08:59-0400 Heart rate 100 /min Jw [place] DUSTING AND BRUSHING MACHINE OPERATOR.YOUTH CARE PROFESSIONAL Work Phone: [facility] 07-27-2022 08:59-0400 Respiratory rate 21 /min Jw [place] DUSTING AND BRUSHING MACHINE OPERATOR.YOUTH CARE PROFESSIONAL Work Phone: [facility] 07-27-2022 08:59-0400 SaO2% (BldA) [Mass fraction] 99 % Jw [facility] DUSTING AND BRUSHING MACHINE OPERATOR.YOUTH CARE PROFESSIONAL Work Phone: [facility] 07-27-2022 08:59-0400 Systolic blood pressure 142 mm[Hg] Jw [facility] DUSTING AND BRUSHING MACHINE OPERATOR.YOUTH CARE PROFESSIONAL Work Phone: [facility] 03-11-2022 18:02-0400 Body temperature 98.6 [degF] Lisa Valderrama DUSTING AND BRUSHING MACHINE OPERATOR.YOUTH CARE PROFESSIONAL Work Phone: [facility] 03-11-2022 18:02-0400 Body weight 139.25 kg Lisa Bernardo-Casey DUSTING AND BRUSHING MACHINE OPERATOR.YOUTH CARE PROFESSIONAL Work Phone: [facility] 03-11-2022 18:02-0400 Diastolic blood pressure 62 mm[Hg] Lisa Praisler-Wood DUSTING AND BRUSHING MACHINE OPERATOR.YOUTH CARE PROFESSIONAL Work Phone: [facility] 03-11-2022 18:02-0400 Heart rate 90 /min Lisa Praisler-Wood DUSTING AND BRUSHING MACHINE OPERATOR.YOUTH CARE PROFESSIONAL Work Phone: [facility] 03-11-2022 18:02-0400 Respiratory rate 16 /min Lisa Praisler-Wood DUSTING AND BRUSHING MACHINE OPERATOR.YOU[employer] CARE PROFESSIONAL Work Phone: [facility] 03-11-2022 18:02-0400 SaO2% (BldA) [Mass fraction] 97 % Lisa Praisler-Wood DUSTING AND BRUSHING MACHINE OPERATOR.YOUTH CARE PROFESSIONAL Work Phone: [facility] 03-11-2022 18:02-0400 Systolic blood pressure 118 mm[Hg] Lisa Praisler-Wood DUSTING AND BRUSHING MACHINE OPERATOR.YOUTH CARE PROFESSIONAL Work Phone: [facility] Encounters Encounter Date Encounter Type Care Provider Facility Start: 06-01-2023 End: 06-01-2023 ambulatory Dinh DE LA TORRE Facility:[facility] Start: 03-24-2023 Telephone encounter Dinh De La Torre PA-C Work Phone: [facility] Procedures Date Procedure Procedure Detail Performing Clinician Start: 03-11-2022 Urnls dip stick/tabl et rgnt auto w/o microscopy [facility] Provider Plan of Treatment Date Care Activity Detail Author Start: 04-12-2031 Urine microalbumin profile [facility] Start: 01-15-2023 Covid-19 Vaccine ( season) Covid-19 Vaccine ( season) [facility] Start: 01-15-2023 Influenza vaccination [facility] Start: 09-04-2022 End: 11-04-2022 Basic metabolic 2000 panel - Serum or Plasma BASIC METABOLIC PNL Lab Routine Screening for diabetes mellitus Dysmetabolic syndrome Expected: 09/04/2022, Expires: 11/04/2022 [facility] Work Phone: Immunizations Immunization Date Immunization Notes Care Provider Fa cility 03-01-2023 influenza, injectabl e, quadrivalent, contains preservative NA Wil MERCADO Work Phone: [facility] 07-15-2021 influenza, injectabl e, quadrivalent, contains preservative Lisa Bernardo-Wood DUSTING AND BRUSHING MACHINE OPERATOR.[facility] Work Phone: [facility] 07-15-2021 influenza virus vacc ine, unspecified formulation NA Wil MERCADO Work Phone: [facility] 04-12-2021 tetanus toxoid, redu tea diphtheria toxoid, and acellular pertussis vaccine, adsorbed Lisa Bernardo-Casey DUSTING AND BRUSHING MACHINE OPERATOR.[facility] Work Phone: [facility] 03-21-2018 influenza, injectabl e, quadrivalent, contains preservative Lisa Praisler-Wood DUSTING AND BRUSHING MACHINE OPERATOR.[facility] Work Phone: [facility] 03-21-2018 influenza, injectabl e, quadrivalent, preservative free Lisa Praisler-Wood DUSTING AND BRUSHING MACHINE OPERATOR.[facility] Work Phone: [facility] 12-21-2016 Human Papillomavirus 9-valent vaccine Lisa Praisler-Casey DUSTING AND BRUSHING MACHINE OPERATOR.[facility] Work Phone: [facility] 12-17-2015 Human Papillomavirus 9-valent vaccine Lisa Praisler-Wood DUSTING AND BRUSHING MACHINE OPERATOR.[facility] Work Phone: [facility] 12-17-2015 meningococcal polysaccharide (groups A, C, Y and W-135) diphtheria toxoid conjugate vaccine (MCV4P) Lisa Valderrama DUSTING AND BRUSHING MACHINE OPERATOR.[facility] Work Phone: [facility] 04-17-2015 influenza, injectabl e, quadrivalent, preservative free Lisa Bernardo-Wood DUSTING AND BRUSHING MACHINE OPERATOR.[employer] PROFESSION[employer] Work Phone: [facility] Work Phone: 03-15-2014 influenza, seasonal, injectable Lisa Praisler-Wood DUSTING AND BRUSHING MACHINE OPERATOR.[employer] PROFESSIONAL Work Phone: [facility] Work Phone: 04-01-2013 influenza virus vacc ine, unspecified formulation Lisa Bernardo-Casey DUSTING AND BRUSHING MACHINE OPERATOR.YOU[employer] PROFESSIONAL Work Phone: [facility] 08-06-2011 Meningococcal, MCV4, unspecified conjugate formulation(groups A, C, Y and W-135) Lisa Valderrama APRN.[facility] Work Phone: [facility] 08-06-2011 tetanus toxoid, redu tea diphtheria toxoid, and acellular pertussis vaccine, adsorbed Lisa Valderrama DUSTING AND BRUSHING MACHINE OPERATOR.[facility] Work Phone: [facility] 03-22-2010 influenza virus vacc ine, unspecified formulation Lisa Valderrama DUSTING AND BRUSHING MACHINE OPERATOR.[facility] Work Phone: [facility] Work Phone: 03-07-2009 influenza virus vacc ine, unspecified formulation Lisa Valderrama DUSTING AND BRUSHING MACHINE OPERATOR.[facility] Work Phone: [facility] Work Phone: 08-09-2003 diphtheria, tetanus toxoids and acellular pertussis vaccine Lisa Bernardo-Casey DUSTING AND BRUSHING MACHINE OPERATOR.[facility] Work Phone: [facility] Work Phone: 08-09-2003 measles, mumps and rubella virus vaccine Lisa Bernardo-Casey DUSTING AND BRUSHING MACHINE OPERATOR.[facility] Work Phone: [facility] Work Phone: 08-09-2003 poliovirus vaccine, inactivated Lisa Valderrama DUSTING AND BRUSHING MACHINE OPERATOR.[facility] Work Phone: [facility] Work Phone: 04-03-2003 influenza virus vacc ine, unspecified formulation Lisa Valderrama DUSTING AND BRUSHING MACHINE OPERATOR.[facility] Work Phone: [facility] Work Phone: 03-05-2003 influenza virus vacc ine, unspecified formulation Lisa Bernardo-Casey DUSTING AND BRUSHING MACHINE OPERATOR.[facility] Work Phone: [facility] Work Phone: 05-24-2000 diphtheria, tetanus toxoids and acellular pertussis vaccine Lisa Bernardo-Casey DUSTING AND BRUSHING MACHINE OPERATOR.[facility] Work Phone: [facility] Work Phone: 05-24-2000 haemophilus influenz ae type b vaccine, HbOC conjugate Lisa Praisler-Wood DUSTING AND BRUSHING MACHINE OPERATOR.YOU[employer] CARE PROFESSIONAL Work Phone: [facility] Work Phone: 05-24-2000 hepatitis B vaccine, pediatric or pediatric/adolescent dosage Lisa Praisler-Wood DUSTING AND BRUSHING MACHINE OPERATOR.YOU[employer] CARE PROFESSIONAL Work Phone: [facility] Work Phone: 03-10-2000 measles, mumps and rubella virus vaccine Lisa Praisler-Wood DUSTING AND BRUSHING MACHINE OPERATOR.YOU[employer]ARE PROFESSIONAL Work Phone: [facility] Work Phone: 03-10-2000 poliovirus vaccine, inactivated Lisa Praisler-Wood DUSTING AND BRUSHING MACHINE OPERATOR.[facility] Work Phone: [facility] Work Phone: 03-10-2000 varicella virus vaccine Marge y Praisler-Wood DUSTING AND BRUSHING MACHINE OPERATOR.[facility] Work Phone: [facility] Work Phone: 02-23-2000 measles, mumps and rubella virus vaccine Lisa Praisler-Wood DUSTING AND BRUSHING MACHINE OPERATOR.[facility] Work Phone: [facility] 02-23-2000 poliovirus vaccine, inactivated Lisa Praisler-Wood DUSTING AND BRUSHING MACHINE OPERATOR.[facility] Work Phone: [facility] 02-23-2000 varicella virus vaccine Marge y Praisler-Wood DUSTING AND BRUSHING MACHINE OPERATOR.[facility] Work Phone: [facility] 1999 hepatitis B vaccine, pediatric or pediatric/adolescent dosage Lisa Praisler-Wood DUSTING AND BRUSHING MACHINE OPERATOR.YOU[employer] CARE PROFESSIONAL Work Phone: [facility] Work Phone: 1999 diphtheria, tetanus toxoids and acellular pertussis vaccine Lisa Praisler-Wood DUSTING AND BRUSHING MACHINE OPERATOR.YOU[employer] CARE PROFESSIONAL Work Phone: [facility] Work Phone: 1999 haemophilus influenz ae type b vaccine, HbOC conjugate Lisa Praisler-Wood DUSTING AND BRUSHING MACHINE OPERATOR.YOUTH CARE PROFESSIONAL Work Phone: [facility] Work Phone: 1999 hepatitis B vaccine, pediatric or pediatric/adolescent dosage Lisa Praisler-Wood DUSTING AND BRUSHING MACHINE OPERATOR.[facility] Work Phone: [facility] Work Phone: 1999 diphtheria, tetanus toxoids and acellular pertussis vaccine Lisa Praisler-Wood DUSTING AND BRUSHING MACHINE OPERATOR.YOU[employer] CARE PROFESSIONAL Work Phone: [facility] Work Phone: 1999 haemophilus influenz ae type b vaccine, HbOC conjugate Lisa Praisler-Wood DUSTING AND BRUSHING MACHINE OPERATOR.YOU[employer] CARE PROFESSIONAL Work Phone: [facility] Work Phone: 1999 poliovirus vaccine, inactivated Lisa Praisler-Wood DUSTING AND BRUSHING MACHINE OPERATOR.[facility] Work Phone: [facility] Work Phone: 1999 diphtheria, tetanus toxoids and acellular pertussis vaccine Lisa Praisler-Wood DUSTING AND BRUSHING MACHINE OPERATOR.YOU[employer] CARE PROFESSIONAL Work Phone: [facility] Work Phone: 1999 haemophilus influenz ae type b vaccine, HbOC conjugate Lisa Praisler-Wood DUSTING AND BRUSHING MACHINE OPERATOR.[facility] Work Phone: [facility] Work Phone: 1999 poliovirus vaccine, inactivated Lisa Praisler-Wood DUSTING AND BRUSHING MACHINE OPERATOR.[facility] Work Phone: [facility] Work Phone: Payers Date Payer Category Payer Medicare MEDICARE MEDICAR E A AND B [id number] 2021-Present [phone] [place] [address] Medicare [id number] 2021 Medicare [id number] 2021 [place] [id number] 2021-Present [phone] [address] [place] [address] Medicaid [id number] 2021 Medicare [id number] Social History Date Type Detail Facility Start: 05-23-2021 End: 07-27-2022 Tobacco smoking status NHIS Ex-smoker [facility] End: 02-14-2021 History of tobacco use Current smoker [facility] End: 02-14-2021 History of tobacco use Cigarette Smoker [facility] Start: 05-23-2021 End: 07-27-2022 Tobacco use and exposure Smokeless tobacco non-user [facility] Start: 02-19-2022 End: 03-16-2023 Alcohol intake Current non-drinker of alcohol (finding) [facility] Start: 2000 Sex Assigned At Not on file [facility] Start: 02-07-2022 End: 02-17-2022 Exposure to SARS-CoV-2 (event) Not sure [facility] Start: 07-27-2022 Tobacco Comment Mom outside [facility] Start: 09-04-2022 End: 03-16-2023 History of Social function [facility] Work Phone: Start: 09-04-2022 End: 03-16-2023 Tobacco use panel [facility] Work Phone: Adult Depression Screening Assessment 0 [facility] Work Phone: Clinical Notes 03-11-2022 to 06-01-2023 Telephone Encounter - Randa Patel RN - 03/25/2023 8:35 AM ESTTelephone Encounter - Dihn De La Torre PA-C - 03/25/2023 7:00 AM ESTTelephone Encounter - Randa Patel RN - 03/24/2023 2:59 PM EST Note Date & Type Note Facility 06-01-2023 Note HNO ID: [id number] Author: Dinh DE LA TORRE PA-C Service: ? Author Type: Physician Garde Manager Type: Progress Notes Filed: 06/01/2023 17:55 Note Text: 23 year old male with c/o asking for weight loss pills. Having umbilical hernia repair- unable to reduce. Not painful. Put on 2000 daysi diet. No weight loss at this point., has gained weight. Was seen at [facility]. States needs to lose weight for [...] has IEP at school Chlamydia infection 01/24/2022 [facility] ED Headache NEGATIVE HISTORY OF 08/06/2011 [...] prior data. Dinh De La Torre PA-C [facility] 03-25-2023 Miscellaneous Notes Patient notified. Randa Patel [...] work-up was normal . Pt uses [facility]. Please call patient with recommendation. Thank you. documented in this encounter [facility] 03-16-2023 Note HNO ID: [id number] Author: Dinh De La Torre PA-C Service: ? Author Type: Physician Garde Manager Type: Progress Notes Filed: 03/17/2023 2:32 PM [...] Obesity, class iii, bmi 40-49.9 (morbid obesity) ([facility]) Vitals 03/11/2022 07/27/2022 09/04/2022 03/16/2023 WEIGHT in [...] has IEP at school Chlamydia infection 01/24/2022 [facility] ED Headache NEGATIVE HISTORY OF 08/06/2011 [...] (ADD) without hyper (more content not included)... [facility] 03-16-2023 Instructions Dinh De La Torre PA-C [...] Let me know. documented in this encounter [facility] 03-16-2023 History of Presen t illness [...] Obesity, class iii, bmi 40-49.9 (morbid obesity) ([facility]) Vitals 03/11/2022 07/27/2022 09/04/2022 03/16/2023 WEIGHT in [...] has IEP at school Chlamydia infection 01/24/2022 [facility] ED Headache NEGATIVE HISTORY OF 08/06/2011 [...] La Torre PA-C documented in this encounter [facility] 03-16-2023 Nurse Note Verified with mother over the phone that patient is taking Strattera 80 mg daily. She feels he is suffering from anxiety. He went to [facility] ER on 02/22/23 for headache and chest pain and work up was normal. Patient also complains of racing heart and tingling in hands per mother. Deidre Peña Ma 8:41 AM documented in this encounter [facility] 01-28-2023 Miscellaneous Notes Completed for faxed back as requested Patient has been identified by name and date of : Yes Type of form: verification of disability [facility] Form received via: Fax When form is completed, fax form to fax number provided. Form has been forwarded to: Provider's desk. Provider name: Elver Hernadez LPN documented in this encounter [facility] 09-14-2022 Miscellaneous Notes Patient calls to let provider know that his insurance will not cover any weight loss medication as discussed at visit. Paulina Smiley RN documented in this encounter [facility] 09-04-2022 Note HNO ID: [id number] Author: Dinh De La Torre PA-C Service: ? Author Type: Physician Garde Manager Type: Progress Notes Filed: 09/04/2022 1:55 PM [...] has IEP at school Chlamydia infection 01/24/2022 [facility] ED Headache NEGATIVE HISTORY OF 08/06/2011 [...] - Encouraged followi (more content not included)... [facility] 09-04-2022 History of Presen t illness Narrative [...] has IEP at school Chlamydia infection 01/24/2022 [facility] ED Headache NEGATIVE HISTORY OF 08/06/2011 [...] La Torre PA-C documented in this encounter [facility] 07-28-2022 Miscellaneous Notes Patient given results and verbalized understanding of instructions given.Maria Luisa Pate ----- Message from José Antonio Hannah MD sent at 07/27/2022 8:28 PM EDT ----- Negative for COVID and influenza. documented in this encounter [facility] 07-27-2022 Note HNO ID: [id number] Author: Jw Monroe APRN.CANDACE Service: ? Author Type: Nurse Practitioner Type: Progress Notes Filed: 07/27/2022 9:25 AM Note Text: Subjective HPI Nontoxic-appearing male presents to urgent care with chief complaint of upper respiratory tract like infection. Duration of symptoms 3 days. Associated symptoms sore throat, nasal congestion, nasal discharge and nonproductive cough. Patient denies the use of any kugt-cvj-gzlphya medications or home remedies for symptom management. [...] has IEP at school Chlamydia infection 01/24/2022 [facility] ED Headache NEGATIVE HISTORY OF 08/06/2011 [...] of care. This note was generated using [email or web address] software. It may contain errors in wording, punctuation, or spelling. Jw Monroe, (more content not included)... [facility] [place] 07-27-2022 Instructions Jw Monroe APRN.[facility] - 07/27/2022 9:17 AM EDT How to [...] concerning to you. documented in this encounter [facility] 07-27-2022 History of Presen t illness Narrative Subjective HPI Nontoxic-appearing male presents to urgent care with chief complaint of upper respiratory tract like infection. Duration of symptoms 3 days. Associated symptoms sore throat, nasal congestion, nasal discharge and nonproductive cough. Patient denies the use of any vkbw-qak-ewdsuak medications or home remedies for symptom management. [...] has IEP at school Chlamydia infection 01/24/2022 [facility] ED Headache NEGATIVE HISTORY OF 08/06/2011 [...] of care. This note was generated using [email or web address] software. It may contain errors in wording, punctuation, or spelling. Jw Monroe APRN.CANDACE documented in this encounter [facility] 03-13-2022 Miscellaneous Notes ----- Message from Lisa Valderrama APRN.CNP sent at 03/13/2022 7:22 AM EDT ----- Please advise patient the urine culture was negative. documented in this encounter [facility] 03-12-2022 Miscellaneous Notes Phone call placed patient advised (see prior provider encounter) Patient verbalized understanding, agreed with plan of care. .me Please notify of positive trichomonas. This is a sexually transmitted infection. Treatment is 2 gms of metronidazole one time dose, abstinence for one week. No alcohol for 24 hours with dosing. All partners need treated. Prescription sent to [facility]. Please also notify negative for covid and flu Addie Hanna APRN.CNP Please notify of positive trichomonas. This is a sexually transmitted infection. Treatment is 2 gms of metronidazole one time dose, abstinence for one week. All partners need treated. Prescription sent to [facility]. Addie Hanna APRN.CNP documented in this encounter [facility] 03-12-2022 Miscellaneous Notes Patient calling with lab result. Patient denies any new or worsening symptoms of which a provider is not aware:Yes. Reason for call: Requesting covid-19 test results Outcome: Lab still in process, link for MyChart sent to patient. Patient can also call NOC or office later to see if results are final. documented in this encounter [facility] 03-11-2022 History of Presen t illness Narrative Subjective Hematuria Irritative symptoms include frequency. Irritative symptoms do not include urgency. Associated symptoms include dysuria. Pertinent negatives include no abdominal pain, chills, fever, flank pain, nausea or vomiting. Emmanuelle Everett is a 22 year old male who presents with burning with urination and hematuria. Pt was seen [facility] on 01/24/2022 for dysuria and given cephalexin, then returned on 02/08/2022 and was treated with doxycycline and bactrim. Pt states he tested positive for chlamydia at [facility], but was not tested for chlamydia or trich. Pt was then [facility] for persistent symptoms [...] has IEP at school Chlamydia infection 01/24/2022 [facility] ED Headache NEGATIVE HISTORY OF 08/06/2011 [...] ROUTINE Lory Espino APRN Student TEACHING PROVIDER (Physician/PA/DUSTING AND BRUSHING MACHINE OPERATOR) NOTE OF PERSONAL INVOLVEMENT IN CARE: I have personally seen and examined the patient and performed the medical decision-making components. I have reviewed the Advanced Practice Registered Nurse (DUSTING AND BRUSHING MACHINE OPERATOR) Student's documentation and verified the findings in the note as written. Any additions or changes are noted in bold/italics. Signature: Lisa Valderrama Date: 03/11/2022 Time: 6:47 PM documented in this encounter [facility] 03-11-2022 Instructions Lory Espino - 03/11/2022 [...] Espino APRN Student documented in this encounter [facility] Suspected COVID-19 virus infection- Primary [facility] Diagnosis Ventral hernia without obstruction or [...] of diabetes mellitus [facility] Diagnosis 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 Obesity, Class III, BMI 40-49.9 (morbid obesity) (HCC) Morbid obesity Acanthosis nigricans Acquired acanthosis nigricans Hyperlipidemia, mixed Mixed hyperlipidemia FH: diabetes mellitus Family history of diabetes mellitus Ventral hernia without obstruction or gangrene Ventral hernia, unspecified, without mention of obstruction or gangrene documented in this encounter [facility] Reason for Referral Specialty Diagnoses / Procedures Referred By Contac t Referred To Contact Urology Diagnoses Recurrent UTI (urinary tract infection) Dysuria Procedures CONSULT TO UROLOGY OFFICE/OUTPATIENT NEW HIGH MDM 60-74 MINUTES Lisa Valderrama APRN.[employer] PROFESSIONAL [address] [place] [address] Referral ID Status Reason Start Date Expiration Date Visits Requested Visits Authorized [id number] Authorized PCP Requested Referral 2 03/11/2023 1 1 Specialty Diagnoses / Procedures Referred By Contac t Referred To Contact Diagnoses Obesity, Class III, BMI 40-49.9 (morbid obesity) (HCC) Procedures CONSULT [facility] OFFICE/OUTPATIENT NEW HIGH MDM 60-74 MINUTES Dinh De La Torre PA-C [address] [place] [address] Referral ID Status Reason Start Date Expiration Date Visits Requested Visits Authorized [id number] Authorized PCP Requested Referral 09/04/2022 09/04/2023 1 [...] or prosecute any alcohol or drug abuse patient.[facility] the event this information is protected by the Federal Confidentiality of Alcohol and Drug Abuse Patient Records regulations: The Federal rules restrict any use of the information to criminally investigate or prosecute any alcohol or drug abuse patient.[facility] the event this information is protected by the Federal Confidentiality of Alcohol and Drug Abuse Patient Records regulations: The Federal rules restrict any use of the information to criminally investigate or prosecute any alcohol or drug abuse patient.[facility] the event this information is protected by the Federal Confidentiality of Alcohol and Drug Abuse Patient Records regulations: The Federal rules restrict any use of the information to criminally investigate or prosecute any alcohol or drug abuse patient.[facility] the event this information is protected by the Federal Confidentiality of Alcohol and Drug Abuse Patient Records regulations: The Federal rules restrict any use of the information to criminally investigate or prosecute any alcohol or drug abuse patient.[facility] the event this information is protected by the Federal Confidentiality of Alcohol and Drug Abuse Patient Records regulations: The Federal rules restrict any use of the information to criminally investigate or prosecute any alcohol or drug abuse patient.[facility] the event this information is protected by the Federal Confidentiality of Alcohol and Drug Abuse Patient Records regulations: The Federal rules restrict any use of the information to criminally investigate or prosecute any alcohol or drug abuse patient.[facility] Hospital[facility] the event this information is protected by the Federal Confidentiality of Alcohol and Drug Abuse Patient Records regulations: The Federal rules restrict any use of the information to criminally investigate or prosecute any alcohol or drug abuse patient.[facility] Hospital[facility] the event this information is protected by the Federal Confidentiality of Alcohol and Drug Abuse Patient Records regulations: The Federal rules restrict any use of the information to criminally investigate or prosecute any alcohol or drug abuse patient.[facility] Hospital[facility] the event this information is protected by the Federal Confidentiality of Alcohol and Drug Abuse Patient Records regulations: The Federal rules restrict any use of the information to criminally investigate or prosecute any alcohol or drug abuse patient.[facility] HospitalIn the event this information is protected by the Federal Confidentiality of Alcohol and Drug Abuse Patient Records regulations: The Federal rules restrict any use of the information to criminally investigate or prosecute any alcohol or drug abuse patient.[facility] Reason for Visit (unrecogniz ed section and content) Reason Comments Results Reason Comments Cough Chest congestion, wh eezing x 3 days Reason Comments Weight Problem Referral to diaticia n Reason Comments Patient Update Reason Comments Forms Reason Comments 6 Month Exam Reason Comments Patient Update Patient Request Care Teams (unrecognized sec tion and content) Band Master Relationship Specialty Start Date End Date Dinh De La Torre PA-C [address] [place] [address] PCP - General Family Medicine 09/19/18 Band Master Relationship Specialty Start Date End Date Dinh De La Torre PA-C [address] [place], [place] [id number] PCP - General Family Medicine 09/19/18 Band Master Relationship Specialty Start Date End Date Dinh De La Torre PA-C [address] [place], [place] [id number] PCP - General Family Medicine 09/19/18 Band Master Relationship Specialty Start Date End Date Dinh De La Torre PA-C [address] [facility] [place], [place] [id number] PCP - General Family [facility] 09/19/18 Band Master Relationship Specialty Start Date End Date Dinh De La Torre PA-C [address] [facility] [address] PCP - General Family [facility] 09/19/18 Band Master Relationship Specialty Start Date End Date Dinh De La Torre PA-C [address] [facility] [address] PCP - General [facility] 09/19/18 Band Master Relationship Specialty Start Date End Date Dinh De La Torre PA-C [address] [facility] [address] PCP - General [facility] 09/19/18 Band Master Relationship Specialty Start Date End Date Dinh De La Torre PA-C [address] [facility] [address] PCP - General [facility] 09/19/18 Band Master Relationship Specialty Start Date End Date Dinh De La Torre PA-C [address] [facility] [address] PCP - General Family Medicine 09/19/18 (unrecognized [...] BE BASED ON THE PRIMARY CLINICAL RECORDS. [employer] [facility]. provides no warranty or guarantee of the accuracy or completeness of information in this document.
--- NOTE | 2023-06-28 10:38 | PCM.HP.STD ---
HPI - General HPI Narrative EMMANUELLE NARANJO, is a 23 M who presents for incarcerated umbilical hernia repair. Patient has been put on phentermine by his PCP to help with weight loss and has also been trying to stick to a 2500-calorie a day. Patient states the pain is about a 5/10 fairly constantly. Patient did go to the ER recently for constipation CT abdomen pelvis showed that the hernia contents was larger and on my measurements the hernia was about 2.2 cm x 2 cm defect. [facility] Medical History ADHD Anxiety Migraine headache Non-smoker Wears glasses Home Medications Strattera 80 mg PO DAILY 05/09/22 [History Last Taken 06/27/23] hydroxyzine HCl 10 mg tablet 10 mg PO DAILY 05/24/23 [History Last Taken 06/27/23] phentermine 37.5 mg tablet 37.5 mg PO .qdaily 06/09/23 [History Last Taken 06/27/23] Allergy/AdvReac Type Severity Reaction Status Date / Time pollen extracts Allergy Other Verified 06/28/23 10:27 Surgical History History of tonsillectomy and adenoidectomy Social History Smoking Status: Never smoker substance use type: does not use Vital Signs Vital Signs Vital Signs: Weight Weight: 322 lb Physical Exam Const alert, oriented x3 and no apparent distress HEENT normocephalic and head/scalp atraumatic Resp normal respiratory effort Cardio regular rate GI soft to palpation; Negative for non-distended GI Narrative: Umbilical hernia?incarcerated, tender at umbilical hernia Palpation: Negative for guarding Extremity no clubbing, cyanosis or edema Skin no rashes or lesions noted Neuro CN's II-XII intact bilaterally Psych mental status grossly normal Assessment & Plan Assessment/Plan (1) Incarcerated umbilical hernia: (2) Morbid obesity with BMI of 45.0-49.9, adult: PLAN: Plan Plan to do an umbilical hernia repair with mesh. Reviewed the procedure with the patient including the risks, including but not limited to infection, bleeding, injury to the small bowel, and recurrence. Patient still aware that due to his BMI he would be at higher risk for wound infection or recurrence. Patient is still actively working on losing weight. Divya Perales M.D. Pager: [phone] [facility] [address] [place] [address] [address] [place] [id number] Office: [phone]
[2023-06-28] MEDS: Lactated Ringers 1,000 ML 15 ML IV (10:46)
[2023-06-28] MEDS: Cefazolin 3 GM in 0.9% Normal Saline (100mL Bag) 100 ML IV (11:12)
--- NOTE | 2023-06-28 11:45 | HERN_PTH ---
PATHOLOGY RESULTS PATIENT: EMMANUELLE NARANJO LOC: [facility] U#:[id number] AGE/SX: 23/M ROOM: RE06/28/[address]: Dr. Divya Perales MD : 2000 BED: DIS: 06/28/2023 SPEC #: [id number] RECD: 06/28/23 13:24 STATUS: CASSANDRA DA #: [id number] MARCO: 06/28/23 11:[address]: Divya Perales DEPT: SURGICAL PATHOLOGY RECD BY: Eleanor Correa ENTERED: 06/28/23 13:24 SP TYPE: Hernia OTHR DR: KAY Perez Tissues: HERNIA Procedures: Surgery Specimen Level II HEADER OPERATION: Hernia, umbilical repair with mesh PRE-OP DIAGNOSIS: Incarcerated umbilical hernia TISSUE SUBMITTED: Hernia sac MICROSCOPIC DIAGNOSIS Hernia sac, herniorrhaphy: Fibrosis and vascular congestion. AM:lon 06/29/2023 MICROSCOPIC DESCRIPTION Slides are reviewed. GROSS DESCRIPTION Received in fixative is one container labeled with the patient's name and designated hernia sac. The specimen consists of multiple irregular fragments of pink-lugo soft tissue that in aggregate measure 3.5 x 2.5 x 1.5 cm. Cooking Teacher sections are submitted in one cassette. / AM:lon 06/28/2023 TC:5 CPT: 42357
--- NOTE | 2023-06-28 12:37 | OP.PCM_ITS ---
Report of Operation Date of Procedure: 06/28/23 Pre-Operative Diagnosis: Incarcerated Umbilical hernia, BMI 45 Post-Operative Diagnosis: Same Surgery/Procedure Performed:: Incarcerated umbilical hernia repair with mesh Surgeon: Divya Perales Type of Anesthesia: General/Supplemental Anesthesiologist: Wilder Sage Special Medications: Ancef 3 g IV x 1 Specimen's removed: Hernia sac Description of Procedure: Patient was brought into the room placed supine on the operating table. Correct patient, procedure, site, positioning, special, was verified prior to procedure. General anesthesia was induced. The abdomen was prepped draped in usual sterile fashion. A curvilinear incision was made below the umbilicus with a 15 blade scalpel. This was deepened with electrocautery. A hemostat was used to go around the stalk of the umbilicus and Metzenbaum scissors was used to carefully divide the hernia sac from the skin of the umbilicus. The stalk umbilicus was noted to be very thin additional hernia sac was sutured in this area with 3-0 Vicryl. The fascia around the hernia defect was cleared and the hernia defect measured 2.2 x [address] A medium Ventralex ST hernia patch 6.4 cm was used and secured laterally at the tails with 1 Prolene mattress sutures. 1 Prolene suture was placed to close the fascia in a [id number] including the mesh inferiorly and superiorly. The wound was irrigated with saline. Hemostasis was assured. The skin of the umbilicus was secured to the fascia using 3-0 Vicryl suture interrupted. The incision was closed with 3-0 Vicryl subdermal interrupted sutures and the skin was closed with interrupted 4-0 Monocryl sutures. Steri- Strips and Tegaderm and OpSite were placed over the incision once telfa/sterile cotton balls were placed in the umbilicus. Patient was extubated. Patient tolerated procedure well and was taken to the postanesthesia care unit in stable condition. Complications none
[2023-06-28] MEDS: Bupivacaine Mpf 0.5% 30 ML VIAL (12:38)
--- NOTE | 2023-06-28 12:42 | DCINST_ITS ---
Discharge Instructions Diet Discharge Diet: Light diet - advance as tolerated Activity May shower in (days): 5 (Keep umbilical dressing clean dry and intact for 5 days. Okay to tape off with a Ziploc bag to shower. Or lower shower and upper sponge bath.) Lifting Restrictions: no lifting >20 lbs x 2 wks, no strenuous exercise for 4 wks Additional Activity Instructions:: - Dressing / Incision Call your doctor if your incision/area has: Continuous Slow Oozing, Sudden Increased Bleeding, Increased Pain/ Swelling, Increased Redness, Foul Smelling Discharge and Swelling at the incision site Call your doctor if you observe: Fever of 101 or Higher Remove Dressing in: 5 days (After 5 days okay to remove surgical dressing. Place cotton ball or rolled up gauze in bellybutton and retape daily for 2 more days.) Cleanse incision/area with: Do not get Incision Wet (for 5 days) Additional Dressing/Incision Instructions:: Steri-Strips will fall off in 7 to 10 days, if they do not fall off okay to remove after 10 days. Follow Up Care Please Follow Up With: Divya Perales MD When: Call the office for a follow-up appointment this ; after 5 PM and on the weekends call [phone] with any concerns. Test Results: Test results from this visit will be discussed in further detail at your follow- up appointment, if applicable. Discharge Plan Admission Attending Provider: Divya Perales Primary Care Provider: Dinh De La Torre Discharge Orders/Prescriptions Prescriptions: New oxycodone-acetaminophen 5-325 mg tablet 1 - 2 tab PO Q6H PRN (Reason: pain) 3 Days Qty: 14 0RF oxycodone-acetaminophen 5-325 mg tablet 1 - 2 tab PO Q6H PRN (Reason: pain) 3 Days Qty: 14 0RF Continued Strattera 80 mg PO DAILY hydroxyzine HCl 10 mg tablet 10 mg PO DAILY Patient Comments: Take 1 tablet by mouth three times a day as needed for anxiety. phentermine 37.5 mg tablet 37.5 mg PO .qdaily Patient Comments: Take 1 tablet by mouth once daily for 30 days. Referrals / Follow Up: Dinh De La Torre PA [Primary Care Provider] - Disposition Disposition (needs filled in before D/C Order can be placed): Home, Self Care
== END 2023-06-28 15:25 | disposition home or self-care (01) ==
LOC: SDC 10:04 → AC 10:04
PROVIDERS: PCP Physician Assistant; Referring Provider Surgery; Visit Provider Surgery
PROC: (CPT 49592; principal; 2023-06-28 11:30)
DX: K42.0 Umbilical hernia with obstruction, without gangrene (principal); E66.01 Morbid (severe) obesity due to excess calories; Z68.42 Body mass index [BMI] 45.0-49.9, adult
CPT/HCPCS: 49592; 00830; 88302; C1781; J7120; J2405

== ENCOUNTER 2023-11-24 | Emergency (ER) | payer MEDICARE, MEDICAID, SELFPAY ==
[2023-11-24 00:01] VITALS: BP 147/96; PULSE 100; RESP 18; TEMP 36.2; O2SAT 98; BMI 38.9
[2023-11-24 00:04] VITALS: BP 147/96; PULSE 100; RESP 18; TEMP 36.2; O2SAT 97
[2023-11-24 01:17] VITALS: BP 166/99; PULSE 91; RESP 18; TEMP 36.6; O2SAT 97
[2023-11-24 01:21] LABS: Absolute Lymphocyte Count 3.64 X10^3/uL (0.83-4.51); Absolute Neutrophil Count 4.8 X10^3/uL (2.0-7.7); Basophil# 0.06 X10^3/uL; Basophil% 0.6 % (0-1); Eosinophils% 1.1 % (0-5); Hematocrit 42.9 % (40-54); Hemoglobin 14.2 g/dL (13.0-16.5); Lymphocyte # 3.64 X10^3/ul (0.83-4.51); Lymphocyte % 38.2 % (19-41); Mean Corp Hgb Conc 33.1 g/dL (32-36); Mean Corpuscular Hgb 27.7 pg (27.0-32.0); Mean Corpuscular Volume 83.6 fL (80-94); Mean Platelet Vol. 10.9 fl (6.2-12.0); Monocyte# 0.91 X10^3/uL; Monocyte% 9.6 % (0-10); NRBC Flagged by Analyzer 0 % (0-5); Neutrophil # 4.79 X10^3/uL (2.7-7.7); Neutrophil % 50.3 % (47-70); Platelet Count 344 K/mm3 (150-450); RBC Distribution Width CV 13.2 % (11.6-14.6); RBC Distribution Width SD 40.2 fl (35.1-43.9); Red Blood Count 5.13 M/mm3 (4.6-6.2); White Blood Count 9.5 K/mm3 (4.4-11.0)
[2023-11-24] MEDS: 0.9% Normal Saline (1000mL) 1,000 ML 999 ML IV (01:28)
[2023-11-24 02:06] LABS: Anion Gap 5 (5-15); BUN 14 mg/dL (7-18); BUN/Creat Ratio 17.5 RATIO (10-20); Chloride 108 mmol/L (98-107); EST Glomerular Filtration Rate 125 mL/min (>60); Est Glom Filt Rate - Afr Amer 151 mL/min (>60); Estimated Creatinine Clearance 181.89 ml/min; Glucose 92 mg/dL (74-106); Potassium 4.3 mmol/L (3.5-5.1); Sodium Level 138 mmol/L (136-145)
[2023-11-24 02:07] LABS: Bacteria 0 SEEN /hpf (None Seen); White Blood Cells 0 SEEN /hpf (0-5)
[2023-11-24 02:12] LABS: Color, Urine Yellow (Yellow); Glucose, Dipstick Normal (Normal); Ketone-Dipstick Negative (Negative); Leukocyte Esterase-Dipstick Negative /ul (Negative); Nitrite-Dipstick Negative (Negative); Occult Blood-Urine 10 /ul (Negative); Protein-Dipstick 30 mg/dl (Negative); Urine Bilirubin Dipstick Negative (Negative); Urine Clarity Cloudy (Clear); Urine Urobilinogen 1 mg/dl (Normal)
[2023-11-24 02:31] LABS: Mucous, Urine 4+ /hpf (<or=2+); Red Blood Cells-Urine 0-5 SEEN /hpf (0-5); Squamous Epithelial Cells - UA 10-25 SEEN /hpf (0-5)
[2023-11-24 03:13] VITALS: BP 131/74; PULSE 75; RESP 16; O2SAT 97
--- NOTE | 2023-11-24 03:16 | EDS_ITS ---
HPI History of Present Illness Chief Complaint: Male Pain/Injury Informant: patient and parent Narrative Narrative: Patient is a 23-year-old male with past medical history of anxiety ADHD and migraine headache. He states that today he was urinating normally but that this evening around 7 to 8 PM noticed that he had the sensation to urinate but could not do so. He states that there has been no fevers or chills he denies any history of urinary retention or kidney problems. He states there is been no discharge or concern for STD or UTI. He reports however that as symptoms have been persistent throughout the night he had concerned that he might need a c atheter and therefore comes in for evaluation [facility] Medical History (Updated 11/24/23 @ 05:[address] James Piña, DO) Wears glasses Anxiety Migraine headache Incarcerated umbilical hernia Morbid obesity with BMI of 45.0-49.9, adult Non-smoker ADHD Home Medications ?Medication ?Instructions ?Recorded ?Last Taken ?Type phentermine 37.5 mg tablet 37.5 mg PO .qdaily 06/09/23 06/27/23 History nystatin 100,000 unit/gram topical 1 applic topical BID #30 grams 07/14/23 Unknown Rx cream Allergy/AdvReac Type Severity Reaction Status Date / Time pollen extracts Allergy Other Verified 11/24/23 00:01 Surgical History (Updated 07/02/23 @ 14:[address] Divya Perales MD) History of umbilical hernia repair History of tonsillectomy and adenoidectomy Social History Smoking Status: Never smoker substance use type: does not use ROS ROS ED Constitutional Constitutional ED: Denies chills or fever(s) ENT ENT ED: Denies sore throat Cardiovascular Cardiovascular: Denies chest pain Respiratory/Chest Respiratory/Chest: Denies cough or dyspnea Gastrointestinal Gastrointestinal: Denies abdominal pain, diarrhea, nausea or vomiting Genitourinary Genitourinary ED: Reports other Details: Positive anuria Musculoskeletal Musculoskeletal: Denies back pain or myalgias Integumentary Denies rash Neurologic Neurologic: Denies headache(s) Hematologic/Lymphatic Hematologic/Lymphatic: Denies easy bleeding or easy bruising EXAM Physical Exam Const Vital Signs: 11/24/23 00:01 11/24/23 00:04 11/24/23 01:17 Temperature 97.1 F L 97.1 F L 97.8 F Temperature Source Temporal Oral Oral Pulse Rate 100 100 91 Respiratory Rate 18 18 18 Blood Pressure 147/96 H 147/96 H 166/99 H Blood Pressure Mean 113 113 121 Pulse Ox 98 97 97 Oxygen Delivery Method Room Air Room Air Room Air 11/24/23 03:13 11/24/23 03:24 Temperature Temperature Source Pulse Rate 75 75 Respiratory Rate 16 16 Blood Pressure 131/74 H 131/74 H Blood Pressure Mean 93 93 Pulse Ox 97 97 Oxygen Delivery Method Positive well nourished, well developed and obese General Appearance ED: well developed; Negative for pallor Nutritional Appearance: obese HEENT Reports moist mucous membranes HEENT Narrative: No tongue or lip swelling no oral lesions no airway edema or compromise Eyes PERRL and EOMs intact bilaterally General Eye ED: Negative for scleral icterus Neck supple Resp normal respiratory effort and clear to auscultation bilaterally Cardio regular rate and regular rhythm Cardio Narrative: Heart is regular rate and rhythm without murmurs rubs or gallops Radial and carotid pulses are equal and symmetric GI non-tender, non-distended and no masses GI Narrative: Abdomen is soft nontender and nondistended with normal active bowel sounds. No organomegaly noted. No suprapubic pain with palpation. No pulsatile mass or fluid wave Auscultation: normoactive bowel sounds Palpation: soft Narrative: Normal circumcised male without blood or discharge at the urethral meatus. No testicular swelling or masses noted. No overlying soft tissue changes to suggest infection or Diane's gangrene Back/Spine no CVA tenderness Extremity normal to inspection Neuro oriented x3, CN's II-XII intact bilaterally, moves all extremities, no focal motor deficits and no sensory deficits noted Sensorium / Orientation: alert Motor Exam: strength 5/5 throughout Psych Psych Narrative: Patient has a flat affect Skin no rashes or lesions noted General Skin Exam: Negative for jaundice or pallor MDM MDM MDM Narrative Medical decision making narrative: Patient presented to the ER hypertensive otherwise with stable vitals. He reported he has been having difficulty urinating since this evening. Differential diagnosis is for UTI versus STD versus bladder spasm versus urinary retention versus acute kidney injury. Secondary to this basic labs and UA were obtained. Patient's kidney function is normal there is no electrolyte abnormality and his urine sample shows no sign of infection. A bladder scan was then performed which showed minimal urine within the bladder. In order to confirm this I did perform a bedside ultrasound which also showed a small amount of urine within the bladder without perforation or obstruction. Therefore at this time as the patient was able to urinate in the ER his exam does not show any signs of retention infection or acute kidney injury he will be discharged home and follow-up with urology on an outpatient basis History & Record Review Discussion w/independent historian: Patient and Family Lab Data Attestation: I reviewed the patient's lab results. Labs: Laboratory Results - last 24 hr 11/24/23 11/24/23 01:10 02:02 WBC 9.5 RBC 5.13 Hgb 14.2 Hct 42.9 MCV 83.6 MCH 27.7 MCHC 33.1 RDW Std Deviation 40.2 RDW Coeff of Yovani 13.2 Plt Count 344 MPV 10.9 Immature Gran % (Auto) 0.200 Neut % (Auto) 50.3 Lymph % (Auto) 38.2 [place] % (Auto) 9.6 Eos % (Auto) 1.1 Baso % (Auto) 0.6 Absolute Neuts (auto) 4.8 Absolute Lymphs (auto) 3.64 Nucleated RBC % 0 Sodium 138 Potassium 4.3 Chloride 108 H Carbon Dioxide 25.0 Anion Gap 5 BUN 14 Creatinine 0.80 Estim Creat Clear Calc 181.89 Est GFR (MDRD) Af Amer 151 Est GFR (MDRD) Non-Af 125 BUN/Creatinine Ratio 17.5 Glucose 92 Calcium 9.0 Urine Color Yellow Urine Clarity Cloudy Urine pH 6.0 Ur Specific [place] 1.030 Urine Protein 30 H Urine Glucose (UA) Normal Urine Ketones Negative Urine Occult Blood 10 H Urine Nitrite Negative Urine Bilirubin Negative Urine Urobilinogen 1 H Ur Leukocyte Esterase Negative Urine RBC 0-5 SEEN Urine WBC 0 SEEN Ur Squamous Epith Cells 10-25 SEEN Urine Bacteria 0 SEEN Urine Mucus 4+ Discharge Plan Triage Chief Complaint: Male Pain/Injury ED Provider: James Piña Dx/Rx/DC Orders Clinical Impression: Bladder spasms, Anxiety, ADHD Instructions: Anatomy of the Male Urinary Tract Prescriptions: No Action nystatin 100,000 unit/gram cream 1 applic topical BID Qty: 30 0RF Rx Instructions: apply to bilateral groin creases BID phentermine 37.5 mg tablet 37.5 mg PO .qdaily Patient Comments: Take 1 tablet by mouth once daily for 30 days. Primary Care Provider: Dinh De La Torre Referrals: Ajit Mo MD [Med Staff - Active Staff] - Dinh De La Torre PA [Primary Care Provider] - Activity Restrictions/Additional Instructions: Your urine shows no sign of infection your kidney function is normal indicating you will be able to produce a normal urine amount. Your bladder scan and ultrasound confirm you do not have any type of significant urinary retention. Therefore your symptoms are most consistent with bladder spasms and follow-up with urology for repeat evaluation of this and return to the ER should you have any further concerns Print Language: Setswana Disposition Disposition: Home, Self Care Discharge Date/Time: 11/24/23 03:25
[2023-11-24 03:24] VITALS: BP 131/74; PULSE 75; RESP 16; O2SAT 97
== END 2023-11-24 03:25 | disposition home or self-care (01) ==
PROVIDERS: Emergency Provider Emergency Medicine; PCP Physician Assistant; Visit Provider Emergency Medicine
DX: N32.89 Other specified disorders of bladder (principal); E66.01 Morbid (severe) obesity due to excess calories; Z68.42 Body mass index [BMI] 45.0-49.9, adult; F41.9 Anxiety disorder, unspecified; F90.9 Attention-deficit hyperactivity disorder, unspecified type; Z79.899 Other long term (current) drug therapy
CPT/HCPCS: 80048; 81001; 85025; 96360; 96361; 99283; J7030; A4216